=== PATIENT | female | born 1975 | race Caucasian/White ===

== ENCOUNTER → 2019-11-09 10:58 | Outpatient (BNVA) | payer MEDICARE, MEDICAID, SELFPAY | PROVIDERS: Family Provider Family Medicine; PCP Family Medicine; Visit Provider Family Medicine | DX: Z13.1 Encounter for screening for diabetes mellitus (principal); E88.81 Metabolic syndrome and other insulin resistance | CPT/HCPCS: 83036 ==

== ENCOUNTER → 2019-11-18 10:42 | Outpatient (BNVA) | payer MEDICARE, MEDICAID, SELFPAY | PROVIDERS: Family Provider Family Medicine; PCP Family Medicine; Visit Provider Emergency Medicine | DX: M25.521 Pain in right elbow (principal); M25.531 Pain in right wrist; M25.551 Pain in right hip | CPT/HCPCS: 73080; 73110; 73502 ==

== ENCOUNTER → 2019-11-22 10:58 | Outpatient (BNVA) | payer MEDICARE, MEDICAID, SELFPAY | PROVIDERS: Family Provider Family Medicine; PCP Family Medicine; Visit Provider Family Medicine | DX: Z86.711 Personal history of pulmonary embolism (principal); K21.9 Gastro-esophageal reflux disease without esophagitis; M79.7 Fibromyalgia; M79.641 Pain in right hand; M79.642 Pain in left hand; Z13.220 Encounter for screening for lipoid disorders; Z13.6 Encounter for screening for cardiovascular disorders | CPT/HCPCS: 80061; 85651; 86038; 86140; 86431 ==

== ENCOUNTER → 2019-12-07 09:03 | Outpatient (BNVA) | payer MEDICARE, MEDICAID, SELFPAY | PROVIDERS: Family Provider Family Medicine; PCP Family Medicine; Visit Provider Specialist | DX: M54.81 Occipital neuralgia (principal); R49.0 Dysphonia; G43.111 Migraine with aura, intractable, with status migrainosus; F44.5 Conversion disorder with seizures or convulsions | CPT/HCPCS: 64405; 64450; 99213; J1030; J3490 ==

== ENCOUNTER → 2019-12-23 09:38 | Outpatient (BNVA) | payer MEDICARE, MEDICAID, SELFPAY | PROVIDERS: Family Provider Family Medicine; PCP Family Medicine; Visit Provider Emergency Medicine | DX: N39.0 Urinary tract infection, site not specified (principal); R10.9 Unspecified abdominal pain; R11.0 Nausea; R31.9 Hematuria, unspecified; R10.32 Left lower quadrant pain; R31.29 Other microscopic hematuria | CPT/HCPCS: 81003; 87086 ==

== ENCOUNTER 2019-12-24 10:11 | Outpatient (CLI) | payer MEDICARE, MEDICAID, SELFPAY ==
--- NOTE | 2019-12-24 10:30 | CT_ITS ---
WS: [id number] CT ABDOMEN AND PELVIS NONCONTRAST HISTORY: abdominal pain, hematuria TECHNIQUE: Imaging performed through the abdomen and pelvis. Coronal and sagittal reformats are submi tted. All CT scans at [facility] use at least one of these dose optimization techniques: automated exposure control; mA and/or kV adjustment per patient size (includes targeted exams where d ose is matched to clinical indication); or iterative reconstruction. DLP: 1148.06 mGycm COMPARISON: 07/30/2017, 11/24/2015 Lower thorax: Well-circumscribed 2.8 cm mass in the RIGHT breast. Lung bases are clear. Liver: Hypodense nodule stable in the anterior LEFT lobe of the liver. Probably representing a cyst. No bile duct dilatation. Gallbladder: Unremarkable. Pancreas: Normal. Spleen: Normal. Adrenal glands: Normal. Right kidney: Normal size with no stones, masses or atrophy. Left kidney: Normal size with no stones, mass or atrophy. Abdominal aorta and IVC are unremarkable. Small mesenteric and RIGHT lower quadrant lymph nodes are less than a centimeter. Shoddy retroperitoneal lymph nodes are not enlarged. GI tract: Normal appendix. Mild constipation. No wall thickening. Abdominal wall: Intact. Pelvis: No free fluid or adenopathy. Uterus is enlarged and lobulated. Suspect fibroids. Osseous structures: No osteoblastic or osteolytic bone disease. CT/CT kidney stone [id number] IMPRESSION: 1. Subcentimeter mesenteric and RIGHT lower quadrant lymph nodes. Consider mes enteric adenitis. 2. Normal appendix. 3. Mild constipation. 4. No renal stone or obstruction. 5. RIGHT breast mass incompletely visualized measuring 2.8 cm. RIGHT breast cy st was described on a prior mammogram from 07/30/2017. If no interval mammogram has been performed follow-up mammogram is recommended.
== END 2019-12-24 10:12 | disposition home or self-care (01) ==
LOC: RADWPI 10:16
PROVIDERS: Family Provider Family Medicine; PCP Family Medicine; Visit Provider Emergency Medicine
DX: K59.00 Constipation, unspecified (principal); N63.10 Unspecified lump in the right breast, unspecified quadrant; R10.9 Unspecified abdominal pain; R31.9 Hematuria, unspecified
CPT/HCPCS: 74176

== ENCOUNTER → 2020-01-04 14:50 | Outpatient (BNVA) | payer MEDICARE, MEDICAID, SELFPAY | PROVIDERS: Family Provider Family Medicine; PCP Family Medicine; Visit Provider Obstetrics & Gynecology Female Pelvic Medicine and Reconstructive Surgery | DX: R10.32 Left lower quadrant pain (principal) | CPT/HCPCS: 76830; 83001; 85520 ==

== ENCOUNTER → 2020-02-09 08:57 | Outpatient (BNVA) | payer MEDICARE, MEDICAID, SELFPAY | PROVIDERS: Family Provider Family Medicine; PCP Family Medicine; Visit Provider Specialist | DX: M54.81 Occipital neuralgia (principal); G43.711 Chronic migraine without aura, intractable, with status migrainosus; R56.9 Unspecified convulsions | CPT/HCPCS: 64450; 99214 ==

== ENCOUNTER → 2020-02-28 07:48 | Outpatient (BNVA) | payer MEDICARE, MEDICAID, SELFPAY | PROVIDERS: Family Provider Family Medicine; PCP Family Medicine; Visit Provider Specialist | DX: F44.5 Conversion disorder with seizures or convulsions (principal) | CPT/HCPCS: 95816 ==

== ENCOUNTER → 2020-03-13 08:47 | Outpatient (BNVA) | payer MEDICARE, MEDICAID, SELFPAY | PROVIDERS: Family Provider Family Medicine; PCP Family Medicine; Visit Provider Specialist | DX: F44.5 Conversion disorder with seizures or convulsions (principal); M54.81 Occipital neuralgia; Z71.89 Other specified counseling | CPT/HCPCS: 64450; 99213 ==

== ENCOUNTER 2020-04-26 08:26 | Outpatient (CLI) | payer MEDICARE, MEDICAID, SELFPAY ==
--- NOTE | 2020-04-26 08:00 | MM_ITS ---
WS: [id number] Bilateral screening digital mammogram, 04/26/2020 Clinical Data: Screening Comparison: 07/30/2017, 01/08/2016. Findings: The breast parenchymal pattern shows heterogeneous density. In the right breast there is a large cyst which is slightly smaller than seen on the prior examination. There are other structures in the righ t breast which also probably represent cysts. The left breast is unchanged. No spiculated masses or c lustered calcifications are seen. There are no secondary signs of carcinoma. MM/[place] [id number] Impression: 1. Right breast cyst which is slightly smaller than on the prior exam. 2. Negative bilateral mammograms unchanged. 3. Recommend annual screening mammograms. BIRADS: 2-Benign FOLLOW UP: 1 Year Follow-up The CAD checker stocker was used.
== END 2020-04-26 08:27 | disposition home or self-care (01) ==
LOC: RADSHAW 08:30
PROVIDERS: PCP Family Medicine; Visit Provider Family Medicine
DX: Z12.31 Encounter for screening mammogram for malignant neoplasm of breast (principal); N60.01 Solitary cyst of right breast
CPT/HCPCS: 77067

== ENCOUNTER → 2020-05-22 07:53 | Outpatient (BNVA) | payer MEDICARE, MEDICAID, SELFPAY | PROVIDERS: Family Provider Family Medicine; PCP Family Medicine; Visit Provider Specialist | DX: M54.81 Occipital neuralgia (principal); R51 Headache; R11.0 Nausea | CPT/HCPCS: 20552; 99213; J1030; J3490 ==

== ENCOUNTER → 2020-06-07 08:52 | Outpatient (BNVA) | payer MEDICARE, MEDICAID, SELFPAY | PROVIDERS: Family Provider Family Medicine; PCP Family Medicine; Visit Provider Specialist | DX: G43.711 Chronic migraine without aura, intractable, with status migrainosus (principal) | CPT/HCPCS: 99212 ==

== ENCOUNTER → 2020-06-20 10:00 | Outpatient (BNVA) | payer MEDICARE, MEDICAID, SELFPAY | PROVIDERS: Family Provider Family Medicine; PCP Family Medicine; Visit Provider Specialist | DX: M54.81 Occipital neuralgia (principal); F44.5 Conversion disorder with seizures or convulsions | CPT/HCPCS: 64405; 99212 ==

== ENCOUNTER → 2020-07-17 09:23 | Outpatient (BNVA) | payer MEDICARE, MEDICAID, SELFPAY | PROVIDERS: Family Provider Family Medicine; PCP Family Medicine; Visit Provider Specialist | DX: F44.5 Conversion disorder with seizures or convulsions (principal); G43.711 Chronic migraine without aura, intractable, with status migrainosus; M54.81 Occipital neuralgia | CPT/HCPCS: 64450; 99212; J3490 ==

== ENCOUNTER → 2020-07-31 14:14 | Outpatient (BNVA) | payer MEDICARE, MEDICAID, SELFPAY | PROVIDERS: Family Provider Family Medicine; PCP Family Medicine; Referring Provider Nurse Practitioner Family; Visit Provider Nurse Practitioner Family | DX: M25.561 Pain in right knee (principal); M25.571 Pain in right ankle and joints of right foot | CPT/HCPCS: 73562; 73610 ==

== ENCOUNTER → 2020-08-23 12:56 | Outpatient (BNVA) | payer MEDICARE, MEDICAID, SELFPAY | PROVIDERS: Family Provider Family Medicine; PCP Family Medicine; Visit Provider Specialist | DX: G43.711 Chronic migraine without aura, intractable, with status migrainosus (principal); F44.5 Conversion disorder with seizures or convulsions | CPT/HCPCS: 99213 ==

== ENCOUNTER 2020-10-02 14:26 | Outpatient (CLI) | payer MEDICARE, MEDICAID, SELFPAY ==
--- NOTE | 2020-10-02 14:36 | MR_ITS ---
WS: [id number] MRI LEFT ANKLE NONCONTRAST TECHNIQUE: Sagittal proton density, sagittal STIR, axial proton density, axial T1, axial T2 fat sat, coronal proton density, coronal proton density fat sat, coronal T2 fat sat. CLINICAL INFORMATION: UNSPECIFIED INJURY OF ANKLE COMPARISON: None. FINDINGS: Normal anatomic alignment. Normal ankle mortise. Normal medial and lateral malleolus. Deltoid ligamen t appears normal. Mild soft tissue edema about the ankle. No acute avulsion fractures. Normal talar dome. No evidence of talar dome contusion. Navicular is normal in appearance. Normal cub oid. Tarsal bones appear normal. Metatarsal bases appear normal. Normal calcaneus. Normal talocalcane al articulation. No significant bone marrow contusion. Distal Achilles is normal in appearance. Carmina l peroneal tendons and peroneal tendon sheaths. Extensor and flexor compartment tendons appear intact . Small amount of tenosynovitis along the tibialis posterior and flexor digitorum longus. Diffuse edema involving the ATF which appears irregular and partially torn. Evidence of ligamentous i njury involving the posterior talofibular ligament. Edema involving the anterior and posterior tibiof ibular ligaments consistent with partial tear. MR/MR ankle LT wo con* [id number] IMPRESSION: 1. Normal ankle mortise. No acute fractures. 2. Evidence of ligamentous injury with partial tears involving the anterior an d posterior talofibular ligaments 3. Small amount of edema consistent with ligamentous injury along the anterior and posterior tibiofibular ligaments. 4. Small ankle effusion with soft tissue edema. 5. Small amount of tenosynovitis involving the tibialis posterior and flexor d igitorum longus.
== END 2020-10-02 14:27 | disposition home or self-care (01) ==
LOC: RADWPI 14:31
PROVIDERS: PCP Family Medicine; Visit Provider Orthopaedic Surgery
DX: S99.912A Unspecified injury of left ankle, initial encounter (principal); X58.XXXA Exposure to other specified factors, initial encounter; R60.0 Localized edema; M25.472 Effusion, left ankle; M65.872 Other synovitis and tenosynovitis, left ankle and foot
CPT/HCPCS: 73721

== ENCOUNTER → 2020-11-03 10:43 | Outpatient (BNVA) | payer MEDICARE, MEDICAID, SELFPAY | PROVIDERS: PCP Family Medicine; Referring Provider Obstetrics & Gynecology; Visit Provider Obstetrics & Gynecology | DX: N92.0 Excessive and frequent menstruation with regular cycle (principal); R10.2 Pelvic and perineal pain | CPT/HCPCS: 87635 ==

== ENCOUNTER → 2020-11-08 09:35 | Outpatient (BNVA) | payer MEDICARE, MEDICAID, SELFPAY | PROVIDERS: PCP Family Medicine; Visit Provider Emergency Medicine | DX: R07.89 Other chest pain (principal); Z86.711 Personal history of pulmonary embolism | CPT/HCPCS: 71046 ==

== ENCOUNTER 2020-11-08 11:48 | Inpatient (IN) | payer MEDICARE, MEDICAID, SELFPAY ==
[2020-11-08] VITALS (20 sets, daily range): BP systolic 89–137; BP diastolic 57–102; PULSE 56–91; RESP 15–22; TEMP 36.3–36.9; O2SAT 93–100; BMI 28.7
[2020-11-08] MEDS: fentaNYL 50 mcg/mL INJ 2mL 100 MCG IVP (12:35)
[2020-11-08] MEDS: midazolam 1 mg/mL INJ 2 mL 5 MG IVP (12:38)
[2020-11-08] MEDS: fentaNYL 50 mcg/mL INJ 2mL IVP (12:55)
[2020-11-08] MEDS: ketorolac 30 mg/mL INJ IVP (13:00)
--- NOTE | 2020-11-08 13:01 | XR_ITS ---
WS: [id number] Exam: XR chest 1V portable [id number] Date/Time of Exam: 11/08/2020 1:06 PM Reason For Exam: post chest tube insertion Compared to the most recent exam performed on this same day at 1011 hours. A small thoracostomy tube is been positioned in the upper left pleural cavity. The left lung is now f ully inflated. The right lung is clear. Normal cardiomediastinal structures and bony elements. XR/XR chest 1V portable [id number] IMPRESSION: 1. Resolved left upper lobe pneumothorax with small left chest tube in place as noted above. The exam is otherwise negative.
--- NOTE | 2020-11-08 13:01 | PC.NURSE ---
Addendum entered by Hailey Caro RN 11/08/20 14:45: thoravent placed to left chest by dr steven. suction hooked up to low continuous suction Original Note: pleuravac placed to left chest by dr steven. suction hooked up to low intermittent suction
[2020-11-08] MEDS: ondansetron 2 mg/ML SDV 2 mL 4 MG IVP ×2 (13:10→16:46)
--- NOTE | 2020-11-08 13:17 | ED_ITS ---
HPI - SOB/Dyspnea General: Chief Complaint: Shortness of Breath/Dyspnea Stated Complaint: COUGH, SOB, SEVERE CHEST/BACK PAIN Time Seen by Provider: 11/08/20 11:56 History of Present Illness: HPI Narrative: 45-year-old female presented to the emergency room with complaint of shortness of breath. She had been seen her primary care office earlier today and was found to have a left pneumothorax. Yesterday she had a nerve ablation procedure done at the pain clinic and after that had a little bit of shortness of breath and cough overnight got markedly worse. Procedure was done of the posterior approach. She also has a history of DVTs and PEs and is usually on Eliquis she is currently on subcu heparin as bridge therapy in anticipation of a hysterectomy she was to have tomorrow morning with Dr. Dan for mennomenorrhagia and a history of cervical cancer. She tells me she has never had a pneumothorax in the past. She has no history of COPD or asthma. MD elicited complaint: shortness of breath, cough, pain with inspiration and anxiety Pertinent past history: other Onset (ago): hour(s) Timing: constant Severity: severe Exacerbating factors: exertion, coughing and inspiration Relieving factors: oxygen, rest and upright position Associated symptoms: Reports chest pain and cough; Deny abdominal pain, chest congestion, diaphoresis, dizziness, extremity pain, fever(s), hemoptysis, lightheadedness, myalgias, nausea, orthopnea, palpitations, paresthesias, polydipsia, polyuria, rash, sense of impending doom, syncope or vomiting Treatment prior to arrival: none Review of Systems Const: Denies: fever(s) or diaphoresis ENMT: Denies: throat pain, ear or mastoid pain, nasal discharge or nasal congestion Card: Reports: chest pain; Denies: palpitations, lightheadedness, syncope or orthopnea Resp: Denies: hemoptysis or chest congestion GI: Denies: abdominal pain, nausea or vomiting : Denies: flank pain, difficulty voiding, dysuria, urinary frequency or urinary urgency Musc: Denies: extremity pain Skin/Breast: Denies: rash or pruritus Neuro: Denies: dizziness Endo: Denies: polyuria or polydipsia PFS ED PFSH: Medical History (Updated 11/08/20 @ 13:37 by Iker Nelson DO) Breast mass in female Cervical cancer Cervical disc disease Chronic post-traumatic stress disorder Fibromyalgia Generalized anxiety disorder GERD (gastroesophageal reflux disease) Hx pulmonary embolism Major depressive disorder, recurrent, moderate Menorrhagia Metabolic syndrome Migraine with aura, intractable, with status migrainosus MARIE (obstructive sleep apnea) Pneumothorax Pseudoseizure Surgical History H/O section H/O tubal ligation Family History Father Hypertension Diabetes Grandfather Diabetes Grandmother Diabetes Mother Heart disease Social History Smoking and tobacco status: never smoked Alcohol intake: current Alcohol intake frequency: holidays/special occasions only History of recent travel: No Current gender identity: Female Female Reproductive History: Date of last menstrual period: 08/30/20 Spontaneous abortions: No Physical Exam Const: COMMON NORMALS: no acute distress GENERAL APPEARANCE: cooperative and comfortable ORIENTATION/CONSCIOUSNESS: Yes awake, Yes oriented to person, Yes oriented to place and Yes oriented to time HENMT: COMMON NORMALS: normocephalic, atraumatic and hearing grossly normal bilaterally HEAD & SCALP: normocephalic and atraumatic Neck/C-Spine: COMMON NORMALS: no JVD Resp: COMMON NORMALS: normal respiratory effort, No retractions, No use of accessory muscles and clear to auscultation bilaterally AUSCULTATION: clear to auscultation bilaterally OTHER: Absent breath sounds on the left apical area anteriorly on initial exam. Improved after placement of thoracic vent Cardio: COMMON NORMALS: no JVD, regular rate, regular rhythm and No murmurs present (Cardio) RATE: regular rate RHYTHM: regular rhythm GI: COMMON NORMALS: Soft to palpation and No hepatosplenomegaly present AUSCULTATION: Yes normoactive bowel sounds PALPATION: Yes Soft to palpation, No Tenderness to palpation present (GI), No Guarding due to palpation present (GI) and Yes No hepatosplenomegaly present Extremity: COMMON NORMALS: normal to inspection, capillary refill normal, no clubbing, cyanosis or edema, no calf tenderness and no pedal edema Neuro: SENSORIUM/ORIENTATION: Yes oriented to person, Yes oriented to place and Yes oriented to time Skin: COMMON NORMALS: no rashes or lesions noted GENERAL SKIN EXAM: no rashes or lesions noted Course Vital Signs: Vital signs: Vital Signs Temperature 98.4 F 11/08/20 11:56 Pulse Rate 68 11/08/20 14:00 Respiratory Rate 20 H 11/08/20 14:00 Blood Pressure 104/69 11/08/20 14:00 Pulse Oximetry 100 11/08/20 14:00 MDM - SOB/Dyspnea MDM Narrative: Medical decision making narrative: 100% left apical pneumothorax on initially chest x-ray done in the primary care office. Thoracic vent placed by Dr. Ponce in the ER. Post film shows good reinflation. She will be placed on observation overnight Dr. Duke to be the attending Dr. Ponce to be the consulting. Discharge Plan Discharge Patient Disposition: Placed in Observation Admit Provider: Mary Duke Clinical Impression: Pneumothorax, Hx of pulmonary embolus Coding Level of Care Code ED [employer]isher [employer] for Chg Fwd Exam Comprehensive
[2020-11-08] MEDS: morphine 4 mg/mL SDV 1 mL IVP ×2 (13:27→13:58)
--- NOTE | 2020-11-08 13:42 | PC.NURSE ---
1330 lab called to obtain labs from pt, as she was stuck by three nurses in an attempt to collect.
[2020-11-08] MEDS: promethazine 25 mg/mL SDV 1 mL IM (14:13)
[2020-11-08 14:17] LABS: Basophils % 0.5 %; Eosinophils # 0.1 10^3/uL (0.0-0.8); Eosinophils % 0.8 %; Hematocrit 37.1 % (37.0-47.0); Hemoglobin 11.8 g/dL (11.5-15.3); Lymphocytes # 1.5 10^3/uL (0.8-4.8); Lymphocytes % 24.5 %; Mean Corpuscular HGB Conc 31.8 g/dL (30.0-36.0); Mean Corpuscular Hemoglobin 26.9 pg (28.0-34.0); Mean Corpuscular Volume 84.7 fL (81-99); Mean Platelet Volume 9.4 fL (7.4-10.4); Monocytes # 0.4 10^3/uL (0.2-0.9); Monocytes % 6.2 %; Neutrophils # 4.05 10^3/uL (1.8-7.7); Neutrophils % 67.7 %; Nucleated Red Blood Cells % 0 %; Platelet Count 244 10^3/cmm (130-400); Red Blood Count 4.38 10^6/uL (4.1-5.3); Red Cell Distribution Width 13.4 % (12.1-15.1)
--- NOTE | 2020-11-08 14:23 | PC.NURSE ---
report called to giovany baker
[2020-11-08 14:36] LABS: INR 1.03 (0.8-1.2)
[2020-11-08 14:37] LABS: Partial Thromboplastin Time 29.2 SECONDS (23.9-36.7)
[2020-11-08 14:43] LABS: Alanine Aminotransferase 23 U/L (0-33); Albumin Level 3.9 g/dL (3.5-5.2); Alkaline Phosphatase 76 IU/L (35-105); Aspartate Amino Transferase 22 U/L (0-32); Blood Urea Nitrogen 10 mg/dL (6-20); Calcium 8.7 mg/dL (8.5-10.5); Carbon Dioxide 26 mmol/L (22-29); Chloride 106 mmol/L (98-107); Globulin 2.7 g/dL (1.3-4.6); Glomerular Filtration Rate 108.6 mL/min (90-130); Glucose 96 mg/dL (65-115); Osmolality Calculated 287 mOsm/kg (285-295); Sodium 139 mmol/L (136-145); Total Bilirubin 0.2 mg/dL (0.15-1.2); Total Protein 6.6 g/dL (6.6-8.7)
--- NOTE | 2020-11-08 15:36 | P.HP_ITS ---
Providers/Chief Complaint Admitting Physician: Dr. Ponce/cardiothoracic surgery Primary Care Provider: Minal Sanders MD Chief Complaint: COUGH, SOB, SEVERE CHEST/BACK PAIN History of Present Illness Joanie Black is a 45 year old female was consulted on by Dr. Nelson in the emergency department due to a 20% left pneumothorax that was initially felt to be spontaneous. Upon further questioning, it was determined that the patient received a trigger point injection yesterday in the left subscapular region and [facility]. She noted some increasing pain later that day which proceeded anteriorly as well. Because of increasing discomfort and some mild dyspnea, she was seen in the clinic today were chest x-ray revealed a 20% pneumothorax. She was then transferred to the emergency department at [facility] in [place]. I was consulted by Dr. Browning. I have recommended and concurred with Dr. Nelson's recommendation for a left thoracic vent for this pneumothorax. Has been on subcutaneous heparin for planned elective hysterectomy tomorrow. She has a prior history for DVT and had been on Eliquis which is been held in preparation for this elective surgery. I personally reviewed the chest x-ray and conferred with my colleague Dr. Nelson. Review of Systems Const: Denies: fever(s), chills, change in appetite, change in weight, fatigue or night sweats Eyes: Denies: change in vision or blurry vision ENMT: Denies: odynophagia or hoarseness Card: Reports: chest pain (Sided posterior radiating to anterior) Resp: Reports: dyspnea; Denies: hemoptysis GI: Denies: abdominal pain, nausea, vomiting, dysphagia, heartburn or change in bowel habits : Denies: dysuria, urinary frequency, urinary urgency or urinary hesitancy Musc: Denies: extremity pain or extremity swelling Skin/Breast: Denies: rash Neuro: Denies: headache(s), numbness in extremities, weakness in extremities or sensory changes Psych: Reports: anxiety; Denies: depression or change in appetite Endo: Denies: polyuria, polydipsia or cold intolerance David/Lymph: Denies: easy bruising, easy bleeding, petechiae or enlarged lymph nodes Medications/Allergies Home Medications Medication Instructions Recorded Confirmed Last Taken Type apixaban 2.5 mg tablet See Rx Instructions .ROUTE 0911/08/20 10/31/20 08:47 Rx .COMPLEX #60 tab omeprazole 20 mg capsule,delayed See Rx Instructions .ROUTE 06/28/20 11/08/20 11/07/20 Rx release .COMPLEX #30 capsule erenumab-aooe 140 mg/mL See Rx Instructions .ROUTE 08/23/20 11/08/20 Unknown Rx subcutaneous auto-injector .COMPLEX #1 ml alprazolam 0.5 mg tablet 0.5 mg PO TID PRN #90 tab 09/10/20 11/08/20 11/08/20 Rx alprazolam 1 mg tablet,extended 1 mg PO DAILY #30 tab 09/10/20 11/08/20 11/08/20 Rx release 24 hr magnesium oxide 400 mg PO DAILY 10/23/20 11/08/20 11/08/20 History potassium 99 mg tablet 1 mg PO DAILY tab 10/23/20 11/08/20 11/07/20 History promethazine 25 mg tablet 25 mg PO TID PRN tab 10/23/20 11/08/20 Unknown History memantine 10 mg tablet 10 mg PO BID #60 tab 10/30/20 11/08/20 11/08/20 Rx heparin (porcine) 5,000 unit/mL (1 5,000 unit SUBCUT Q12H #50 ml 11/01/20 11/08/20 11/08/20 Rx mL) injection cartridge metoprolol succinate 12.5 mg PO DAILY 11/08/20 11/08/20 11/08/20 History suvorexant [Belsomra] 20 mg PO BEDTIME 11/08/20 11/08/20 11/07/20 History Allergies Allergy/AdvReac Type Severity Reaction Status Date / Time No Known Allergies Allergy Verified 11/08/20 09:05 PFSH Acute PFSH: Medical History Breast mass in female Cervical cancer Cervical disc disease Chronic post-traumatic stress disorder Fibromyalgia Generalized anxiety disorder GERD (gastroesophageal reflux disease) Hx pulmonary embolism Major depressive disorder, recurrent, moderate Menorrhagia Metabolic syndrome Migraine with aura, intractable, with status migrainosus MARIE (obstructive sleep apnea) Pneumothorax Pseudoseizure Surgical History H/O section H/O tubal ligation Family History Father Hypertension Diabetes Grandfather Diabetes Grandmother Diabetes Mother Heart disease Social History Smoking and tobacco status: never smoked Alcohol intake: current Alcohol intake frequency: holidays/special occasions only History of recent travel: No Current gender identity: Female Female Reproductive History: Date of last menstrual period: 08/30/20 Spontaneous abortions: No Vitals/I&O/Wt Last Vital Signs Temp 98.1 F 11/08/20 14:49 Pulse 57 L 11/08/20 15:21 Resp 18 11/08/20 14:49 BP 101/69 11/08/20 14:49 Pulse Ox 100 11/08/20 14:49 Weight last 48 hrs Weight 200 lb Physical Exam Const: COMMON NORMALS: patient oriented x3 and alert ORIENTATION/CONSCIOUSNESS: Yes oriented to person, Yes oriented to place and Yes oriented to time HENMT: COMMON NORMALS: normocephalic HEAD & SCALP: normocephalic; no cranial bruits Neck/C-Spine: COMMON NORMALS: full ROM, supple, no JVD and No carotid bruits GENERAL: Yes trachea midline CERVICAL SPINE: Yes cervical ROM normal Chest: COMMONS NORMALS: normal inspection of the chest and normal palpation of entire chest wall Resp: COMMON NORMALS: normal respiratory effort; negative for clear to auscultation bilaterally EFFORT & INSPECTION: Yes able to speak in complete sentences, Yes symmetric chest movement and Yes tachypneic (Mild) AUSCULTATION: not clear to auscultation bilaterally (Decreased breath sounds laterally and posteriorly on the left) Cardio: COMMON NORMALS: no JVD, regular rate, regular rhythm, S1 normal heart sound present, S2 normal heart sound present, No gallops present (Cardio), No murmurs present (Cardio), No rub (Cardio) and Peripheral pulses 2+ throughout JUGULAR VENOUS DISTENTION: no JVD RATE: regular rate RHYTHM: regular rhythm HEART SOUNDS: S1 normal heart sound present and S2 normal heart sound present PERIPHERAL PULSES: radial pulses present positive bilateral 2+ Neuro: COMMON NORMALS: patient oriented x3, no focal motor deficits and no sensory deficits noted SENSORIUM/ORIENTATION: Yes alert, Yes oriented to person, Yes oriented to place and Yes oriented to time GAIT: Yes Normal gait present Data : 11/08/20 14:11 11/08/20 14:11 A&P Assessment and plan (1) Pneumothorax: Percent, symptomatic, left pneumothorax which is probably iatrogenic following trigger point injection yesterday. Plan: I recommended a left thoracic vent placement for this apical pneumothorax. Rationale was carefully discussed with Ms. Black. I have also spoken with her . All questions answered. They are agreeable to proceed. Details and risks of the procedure were carefully and frankly discussed. Risks reviewed include the possibility of , stroke, heart attack, major bleeding, infection, pneumonia, failure to resolve the pneumothorax, subsequent need for prolonged vent or chest tube placement, organ failure, failure to benefit, prolonged hospital stay, pain after the procedure, need for further procedures, inability to complete the procedure, and possible need for long-term followup. All questions were answered. Appropriate consents have been provided for review and signature. Status: Acute Attestations Medical Necessity Statement*: Left pneumothorax Time Spent in Patient Care: 16 - 35 minutes Coding Level of Care Code New Pt Acute Geophysical Support Specialist for Chg Fwd Patient Type New History Expanded Problem Focused Exam Detailed Medical Decision Making Moderate Complexity Diagnoses Pneumothorax J93.9 Time Spent (min) 35
--- NOTE | 2020-11-08 15:44 | P.OP_ITS ---
Operative Report Date of procedure: November 08, 2020 Pre-op Diagnosis: Left pneumothorax Post-op diagnosis: same Procedure Done: Left 13 Nigerian thoracic vent placement Pathology: none sent Surgeon: Carlos Enrique Ponce Anesthesia: Local Complications: None: Post procedure chest x-ray reveals resolution of left pneumothorax Condition: stable Disposition: floor Brief History: 45-year-old female with probable iatrogenic left pneumothorax following trigger point injection yesterday. [facility]lying [facility] in [place] with a 20% left pneumothorax on chest x-ray this morning. I recommended thoracic vent placement for management of this pneumothorax. Rationale and details of the procedure were carefully discussed as well as the risk. Proper consents have been reviewed and signed. Procedure: After careful positioning, Ms. Black received a total of [3] mg of Versed and 100 mcg of fentanyl slow IV with continuous monitoring of heart rate, blood pressure, EKG, and O2 saturation. Her left anterior chest wall was then sterilely prepped and draped. 1% lidocaine was infiltrated in the mid clavicular line over the second intercostal space. A #11 scalpel blade was used to incise the skin. Next, a trocar 13 Nigerian thoracic vent was inserted through the incision and then by direct firm and controlled pressure into the [left/right] pleural space where the vent was advanced over the trocar as it was removed. There was a prompt return of air under pressure. The vent was secured to the skin with adhesive tabs and also with 2-0 silk suture. The vent was then connected to Pleur-evac suction where further air was evacuated. The had the expected pleuritic reaction with subsequent discomfort which subsided over a few minutes. Vital signs remained stable throughout the procedure. Dressings were secured. Breath sounds are now much improved. Chest x-ray revealed appropriate vent placement and resolution of the pneumothorax. I did awake overnight counselor with her at the completion of the procedure. She will be placed as inpatient on the spears with residential continued suction with planned chest x-ray in the a.m. Prior to my departure, air leak had resolved as noted in the Pleur-evac.
[2020-11-08] MEDS: D5-NS 0.45% + KCL 20 mEq 20 MEQ/1,000 ML BAG 100 MEQ IV (16:28)
[2020-11-08] MEDS: morphine 4 mg/mL SDV 1 mL 2 MG IVP ×2 (16:33→21:06)
--- NOTE | 2020-11-08 17:05 | ECG_ITS ---
[facility] Test Date: 2020-11-08 Pat Name: Joanie Black Department: Room: 270 Gender: Female Sign Letterer: : 1975 Requested By: Mary Duke Order Number: [id number] James MD: Yvon Velazquez M.D. Measurements Intervals [place] Rate: 60 P: 59 TN: 157 QRS: 54 QRSD: 97 T: 62 QT: 397 QTc: 397 Interpretive Statements SINUS RHYTHM Compared to ECG 07/11/2019 01:02:16 Sinus arrhythmia no longer present Myocardial infarct finding no longer present Electronically Signed On 11-09-2020 18:07:56 FIRER TUNNEL KILN by Yvon Velazquez M.D. [email or web address]
--- NOTE | 2020-11-08 17:45 | P.HP_ITS ---
Providers/Chief Complaint Admitting Physician: Mary Duke MD Primary Care Provider: Minal Sanders MD Chief Complaint: COUGH, SOB, SEVERE CHEST/BACK PAIN History of Present Illness Joanie Black is a 45 year old female with cervical cancer, PTSD, fibromyalgia, CIRA, GERD, h/o PEs in the past for which she is on longstanding Eliquis, changed to heparin s/c recebtly in anticipation of upcoming hystererctomy on 10/30/20. She presented to ER today with acute dyspnea that started few hrs after receiving a trigger point injection as outpatient. Found to have a left pneumothorax 20%, evaluted by Dr. Borrego in the ER , then underwent placement of thoravent which was then connected to low intermittent suction. CXR post procedure shows resolution of pneumothorax. She c/o post op pain at insertion site at this time. Denies any chest pain, dyspnea or palpitations. [place] admission requested by ER given underlying comorbidities. Review of Systems General: Reports: 10 or more systems reviewed and unremarkable except in HPI and below Const: Denies: fever(s), chills or body aches Eyes: Denies: change in vision, blurry vision or photophobia ENMT: Reports: hoarseness; Denies: throat pain, enlarged tonsils, odynophagia or nasal congestion Card: Denies: chest pain, palpitations, irregular heart rhythm, edema, swelling of feet/ankles, lightheadedness, pre-syncope, dyspnea on exertion or orthopnea Resp: Denies: dyspnea, productive cough, non-productive cough, wheezing, str idor, pain on inspiration, change in phlegm color, hemoptysis or chest congestion GI: Denies: abdominal pain, nausea, vomiting, hematemesis, coffee ground emesis, dysphagia, heartburn, diarrhea, constipation, GI cramping, change in stool character, hematochezia or melena : Denies: flank pain, difficulty voiding, dysuria, urinary frequency, urinary urgency, urinary hesitancy or hematuria Musc: Denies: neck pain, back pain, extremity pain, joint swelling, joint warmth or deformity Neuro: Denies: headache(s), numbness in extremities, weakness in extremities, sensory changes, difficulty walking, frequent falls, dizziness, vertigo, behavioral changes, Slurred speech present or seizure-like activity Psych: Denies: anxiety, depression, suicidal ideation or homicidal ideation Endo: Denies: polyuria, polydipsia, tired all the time, cold intolerance or hot flashes David/Lymph: Denies: easy bruising or easy bleeding Medications/Allergies Home Medications Medication Instructions Recorded Confirmed Last Taken Type apixaban 2.5 mg tablet See Rx Instructions .ROUTE 06/28/20 11/08/20 10/31/20 08:47 Rx .COMPLEX #60 tab omeprazole 20 mg capsule,delayed See Rx Instructions .ROUTE 06/28/20 11/08/20 11/07/20 Rx release .COMPLEX #30 capsule erenumab-aooe 140 mg/mL See Rx Instructions .ROUTE 08/23/20 11/08/20 Unknown Rx subcutaneous auto-injector .COMPLEX #1 ml alprazolam 0.5 mg tablet 0.5 mg PO TID PRN #90 tab 09/10/20 11/08/20 11/08/20 Rx alprazolam 1 mg tablet,extended 1 mg PO DAILY #30 tab 09/10/20 11/08/20 11/08/20 Rx release 24 hr magnesium oxide 400 mg PO DAILY 10/23/20 11/08/20 11/08/20 History potassium 99 mg tablet 1 mg PO DAILY tab 10/23/20 11/08/20 11/07/20 History promethazine 25 mg tablet 25 mg PO TID PRN tab 10/23/20 11/08/20 Unknown History memantine 10 mg tablet 10 mg PO BID #60 tab 10/30/20 11/08/20 11/08/20 Rx heparin (porcine) 5,000 unit/mL (1 5,000 unit SUBCUT Q12H #50 ml 11/01/20 11/08/20 11/08/20 Rx mL) injection cartridge metoprolol succinate 12.5 mg PO DAILY 11/08/20 11/08/20 11/08/20 History suvorexant [Belsomra] 20 mg PO BEDTIME 11/08/20 11/08/20 11/07/20 History Allergies Allergy/AdvReac Type Severity Reaction Status Date / Time No Known Allergies Allergy Verified 11/08/20 09:05 PFSH Acute PFSH: Medical History Breast mass in female Cervical cancer Cervical disc disease Chronic post-traumatic stress disorder Fibromyalgia Generalized anxiety disorder GERD (gastroesophageal reflux disease) Hx pulmonary embolism Major depressive disorder, recurrent, moderate Menorrhagia Metabolic syndrome Migraine with aura, intractable, with status migrainosus MARIE (obstructive sleep apnea) Pneumothorax Pseudoseizure Surgical History H/O section H/O tubal ligation Family History Father Hypertension Diabetes Grandfather Diabetes Grandmother Diabetes Mother Heart disease Social History Smoking and tobacco status: never smoked Alcohol intake: current Alcohol intake frequency: holidays/special occasions only History of recent travel: No Current gender identity: Female Female Reproductive History: Date of last menstrual period: 08/30/20 Spontaneous abortions: No Vitals/I&O/Wt Last Vital Signs Temp 97.4 F L 11/08/20 15:51 Pulse 59 L 11/08/20 15:51 Resp 16 11/08/20 16:33 BP 91/57 11/08/20 15:51 Pulse Ox 100 11/08/20 15:51 Weight last 48 hrs Weight 90.718 kg Physical Exam Const: COMMON NORMALS: no acute distress, average body habitus, patient oriented x3, no limitations, healthy appearing, alert and well nourished HENMT: COMMON NORMALS: normocephalic and atraumatic HEAD & SCALP: normocep halic and atraumatic Eye: COMMON NORMALS: Equal, round and reactive pupils present, EOMs intact bilaterally, conjunctivae normal and no scleral icterus CONJUNCTIVA: Yes conjunctivae normal PUPIL: Yes Equal, round and reactive pupils present Neck/C-Spine: COMMON NORMALS: no JVD Resp: COMMON NORMALS: normal respiratory effort, No retractions, No use of accessory muscles, clear to auscultation bilaterally and percussion normal AUSCULTATION: clear to auscultation bilaterally PERCUSSION: percussion normal Cardio: COMMON NORMALS: no JVD, regular rate, regular rhythm, S1 normal heart sound present, S2 normal heart sound present, No gallops present (Cardio), No clicks present (Cardio), No murmurs present (Cardio), No rub (Cardio) and Peripheral pulses 2+ throughout RATE: regular rate RHYTHM: regular rhythm HEART SOUNDS: S1 normal heart sound present and S2 normal heart sound present PERIPHERAL PULSES: Peripheral pulses 2+ throughout GI: COMMON NORMALS: Normal to inspection, nondistended, normoactive bowel sounds present, Soft to palpation, non-tender, No hepatosplenomegaly present, no masses and no bruits PALPATION: Yes Soft to palpation and Yes No hepatosplenomegaly present Extremity: COMMON NORMALS: normal to inspection, full ROM, capillary refill normal, no joint enlargement, no clubbing, cyanosis or edema, no calf tenderness and no pedal edema Neuro: COMMON NORMALS: patient oriented x3, CN's II-XII intact bilaterally, moves all extremities, no focal motor deficits, no sensory deficits noted, deep tendon reflexes 2+ bilaterally and gait normal SENSORIUM/ORIENTATION: Yes alert Psych: COMMON NORMALS: mental status grossly normal, Normal thought process present, cooperative, normal affect, speech normal, activity/motor behavior normal, denies hallucinations, denies homicidal ideation and denies suicidal ideation SPEECH: Yes normal speech THOUGHT PROCESS: Normal thought process present Skin: COMMON NORMALS: no rashes or lesions noted, no wounds, turgor normal, no jaundice, no petechiae and no mottling GENERAL SKIN EXAM: no rashes or lesions noted and turgor normal Data : 11/08/20 14:11 11/08/20 14:11 A&P Assessment and plan (1) Hx of pulmonary embolus: PAtient on Eliquis chronically, switched to heparin 5000 s/c q12h one week ago for planned surgery Resume heparin at above dosing tonight Status: Acute (2) Pneumothorax: s/p placement of thoravent Management per CT surgery Status: Acute (3) Menorrhagia: scheduled for hysterectomy as outpatient tomorrow, deferred for now, outpatient follow up Status: Acute (4) Cervical cancer: Status: Acute Qualifiers: Malignant neoplasm of cervix location: unspecified location Qualified C ode(s): C53.9 - Malignant neoplasm of cervix uteri, unspecified (5) Chronic migraine without aura, intractable, with status migrainosus: Status: Acute Attestations Medical Necessity Statement*: s/p thoravent placement today, CXR in am to ensure resolution of pneumothorax Coding Level of Care Code Acute Race Engine Builder for Chg Fwd Diagnoses Hx of pulmonary embolus Z86.711 Pneumothorax J93.9 Menorrhagia N92.0 Cervical cancer C53.9 Malignant neoplasm of cervix location: unspecified location Chronic migraine without aura, intractable, with status migrainosus G43.711
[2020-11-08] MEDS: heparin 5,000 unit/mL INJ 1 mL 5000 UNIT SUBCUT (19:21)
[2020-11-08] MEDS: LORazepam 2 mg/mL INJ 1 mL 0.5 MG IVP (19:23)
--- NOTE | 2020-11-08 20:00 | XR_ITS ---
WS: [id number] Exam: XR chest 1V portable [id number] Date/Time of Exam: 11/08/2020 7:32 PM Reason For Exam: f/up pneumothorax Comparison 11/08/2020 at 0101 hours. The left lung remains fully inflated. Small left chest tube is in place in the upper left pleural cav ity unchanged in location. There is atelectasis in the left lower lobe. The right lung is clear and f ully expanded. Normal cardiomediastinal structures and bony elements. XR/XR chest 1V portable [id number] IMPRESSION: 1. The left lung remains fully inflated. Left thoracostomy tube is unchanged in location. 2. Left lower lobe atelectasis.
[2020-11-09] VITALS (13 sets, daily range): BP systolic 91–123; BP diastolic 59–71; PULSE 54–85; RESP 14–18; TEMP 36.4–37.3; O2SAT 96–99
[2020-11-09] MEDS: D5-NS 0.45% + KCL 20 mEq 20 MEQ/1,000 ML BAG 100 MEQ IV ×2 (01:19→11:07)
[2020-11-09] MEDS: morphine 4 mg/mL SDV 1 mL 2 MG IVP ×4 (01:26→17:24)
[2020-11-09 05:31] LABS: Basophils % 0.6 %; Eosinophils # 0.1 10^3/uL (0.0-0.8); Eosinophils % 2.3 %; Hematocrit 35.6 % (37.0-47.0); Hemoglobin 11.3 g/dL (11.5-15.3); Mean Corpuscular HGB Conc 31.7 g/dL (30.0-36.0); Mean Corpuscular Hemoglobin 27.3 pg (28.0-34.0); Monocytes # 0.4 10^3/uL (0.2-0.9); Monocytes % 8.7 %; Neutrophils # 2.22 10^3/uL (1.8-7.7); Neutrophils % 46.2 %; Nucleated Red Blood Cells % 0 %; Platelet Count 225 10^3/cmm (130-400); Red Blood Count 4.14 10^6/uL (4.1-5.3); Red Cell Distribution Width 13.6 % (12.1-15.1); White Blood Count 4.8 10^3/uL (4.0-10.0)
--- NOTE | 2020-11-09 06:00 | XR_ITS ---
WS: [id number] Exam: XR chest 1V portable [id number] Date/Time of Exam: 11/09/2020 6:18 AM Reason For Exam: Postop day #1 status post left thoracic vent/on suction Comparison 11/08/2020. The left lung remains fully expanded. Left chest tube is unchanged in position. Right lung remains cl ear. Normal cardiomediastinal structures and bony elements. XR/XR chest 1V portable [id number] IMPRESSION: 1. The left lung remains fully inflated. Left chest tube unchanged in location. The chest is otherwise negative.
--- NOTE | 2020-11-09 06:00 | PM.PN ---
Subjective Subjective: Interval history: First day postop left thoracic vent. Uneventful night. This morning's chest x-ray reveals continued expansion of the lung. No air leak is noted. Pleur-evac is been on suction. Vitals/I&O/Wt Last Vital Signs Temp 98.1 F 11/09/20 04:00 Pulse 62 11/09/20 04:00 Resp 14 11/09/20 04:00 BP 102/66 11/09/20 05:56 Pulse Ox 98 11/09/20 04:00 11/08/20 11/08/20 11/09/20 14:59 22:59 06:59 Intake Total 480 / 480 885 / 1365 Output Total 400 / 400 1000 / 1400 Balance 80 / 80 -115 / -35 Weight last 48 hrs Weight 200 lb Physical Exam Chest: COMMONS NORMALS: normal inspection of the chest (Surgical dressing site is clean and dry.) Resp: COMMON NORMALS: normal respiratory effort and clear to auscultation bilaterally AUSCULTATION: clear to auscultation bilaterally Cardio: COMMON NORMALS: regular rate, regular rhythm, S1 normal heart sound present and No murmurs present (Cardio) RATE: regular rate RHYTHM: regular rhythm HEART SOUNDS: S1 normal heart sound present Data : 11/09/20 05:10 11/08/20 14:11 A&P Assessment and plan (1) Pneumothorax: First day status post left thoracic vent with left lung remaining inflated. No air leak. Plan: We will disconnect vent from Pleur-evac. Chest x-ray at 12 noon. If low remains inflated will consider removing thoracic vent with possible discharge later this evening or tomorrow. Status: Acute Attestations Medical Necessity Statement*: Iatrogenic left pneumothorax status post thoracic vent Time Spent in Patient Care: less than 15 minutes Coding Level of Care Code Acute Supervisor Filtration for El[employer]io Chung Diagnoses Pneumothorax J93.9
[2020-11-09 06:17] LABS: Anion Gap 12.2 (5-19); Blood Urea Nitrogen 9 mg/dL (6-20); Carbon Dioxide 24 mmol/L (22-29); Chloride 105 mmol/L (98-107); Glomerular Filtration Rate 108.6 mL/min (90-130); Glucose 107 mg/dL (65-115); Osmolality Calculated 283 mOsm/kg (285-295); Potassium 4.2 mmol/L (3.5-5.1); Sodium 137 mmol/L (136-145)
[2020-11-09] MEDS: ondansetron 2 mg/ML SDV 2 mL 4 MG IVP ×2 (06:19→12:23)
[2020-11-09] MEDS: pantoprazole DR 40 mg Tablet PO (08:38)
[2020-11-09] MEDS: heparin 5,000 unit/mL INJ 1 mL 5000 UNIT SUBCUT (08:38)
--- NOTE | 2020-11-09 12:00 | XR_ITS ---
WS: [id number] Exam: XR chest 1V portable [id number] Date/Time of Exam: 11/09/2020 12:03 PM Reason For Exam: Left thoracic vent Now off suction Comparison with the most recent exam performed on the same day at 0628 hours. The left lung remains fully expanded. Left chest tube in place unchanged. Atelectatic change seen in the left lower lobe. The right lung is clear and fully expanded. Normal cardiomediastinal structures and bony elements. XR/XR chest 1V portable [id number] IMPRESSION: 1. Left lung remains fully inflated. Left chest tube is unchanged in position.
--- NOTE | 2020-11-09 12:47 | PM.MISC ---
Miscellaneous Note Note: Chest x-ray with the thoracic vent off of the Pleur-evac reveals the left lung is remain expanded. Discomfort is under better control. I have elected to remove the thoracic vent and place an occlusive dressing. We will obtain a chest x-ray at 3 PM.
--- NOTE | 2020-11-09 14:45 | PC.NURSE ---
Patient had pseudoseizure, this nurse walked into the room to check on patient. Patient was staring and would not respond to name or touch. Patients head was slightly jerking. After about 2 minutes patient was alert and orientated with no neurological effects. Patient was able to transfer to [facility] with standby assist. Patient continued to complain of headache. Dr. Duke was notified.
[2020-11-09] MEDS: LORazepam 2 mg/mL INJ 1 mL 0.5 MG IVP (14:59)
[2020-11-09] MEDS: ibuprofen 200 mg Tablet 400 MG PO (15:00)
--- NOTE | 2020-11-09 15:00 | XR_ITS ---
WS: [id number] Exam: XR chest 1V portable [id number] Date/Time of Exam: 11/09/2020 12:50 PM Reason For Exam: thoracic vent removed Comparison with the latest exam performed on the same day at 1201 hours. Thoracostomy tube has been removed from the left pleural cavity. The left lung remains clear and full y inflated. The right lung is also clear. Normal cardiomediastinal structures. XR/XR chest 1V portable [id number] IMPRESSION: 1. Left lung remains fully inflated following chest tube removal. The chest is otherwise unremarkable.
--- NOTE | 2020-11-09 15:35 | PC.NURSE ---
Patient continues to complain of a headache, was upset because she only got Motrin for it. This RN asked patient what she normally took or did for her headaches. Patient states she takes Phenergan, I offered patient the Phenergan suppository she has ordered, she declined. Then patient states she uses an ice pack at home. I went and got patient an ice pack for her head at this time.
--- NOTE | 2020-11-09 16:30 | P.DS_ITS ---
Discharge Providers Date of Admission: 11/08/20 08:58 Date of Discharge: November 09, 2020 Attending Provider at Admission: Carlos Enrique Ponce MD Attending Provider at Discharge: Carlos Enrique Ponce MD Primary Care Provider: Minal Sanders MD Diagnoses at Discharge Discharge Diagnosis (1) Pneumothorax: Status: Acute Reason for Visit Reason for Visit: COUGH, SOB, SEVERE CHEST/BACK PAIN Hospital Course Hospital Course Ms. Black is a 45-year-old female admitted after presentation to the emergency department with shortness of breath, left-sided chest discomfort, and a chest x- ray obtained at her primary care clinic in [place] revealing a 20% left pneumothorax. She had received a trigger point injection the day prior and began noticing discomfort several hours after this procedure. A 13 English thoracic vent was placed in the emergency department under light sedation and local anesthesia. Her pneumothorax readily resolved and air leak dissipated within approximately 2 to 3 hours. She was taken off of suction this morning with a stable chest x-ray and subsequently the thoracic vent was removed around 12:30 PM. 3:00 chest x-ray reveals the lungs remain fully inflated without evidence of pneumothorax recurrence. He does have a headache this afternoon states she think she would do better at home and does wish to proceed with plans for discharge. Vital signs are otherwise stable. She will be discharged home to follow-up in my clinic next week. She is to limit her activities until her follow-up. At discharge she is in stable condition. Physical Exam Const: COMMON NORMALS: patient oriented x3 and alert Chest: COMMONS NORMALS: normal inspection of the chest (Occlusive dressing is in place at the previous left thoracic vent site) Resp: COMMON NORMALS: normal respiratory effort, No retractions, No use of accessory muscles, clear to auscultation bilaterally and percussion normal AUSCULTATION: clear to auscultation bilaterally PERCUSSION: percussion normal Cardio: COMMON NORMALS: regular rate, regular rhythm and S1 normal heart sound present RATE: regular rate RHYTHM: regular rhythm HEART SOUNDS: S1 normal heart sound present Extremity: COMMON NORMALS: no clubbing, cyanosis or edema Neuro: COMMON NORMALS: patient oriented x3, no focal motor deficits and no sensory deficits noted SENSORIUM/ORIENTATION: Yes alert Discharge Data Data Completed and Pending: Completed Studies During Hospitalization Category Date Time Status XR chest 1V luis antonio ble [id number] Routine Exams 11/08/20 20:00 Completed XR chest 1V l[place] an[place]io ble [id number] Routine Exams 11/09/20 06:00 Completed XR chest 1V [place] ble [id number] Routine Exams 11/09/20 12:00 Completed XR chest 1V luis an[place]io ble [id number] Routine Exams 11/09/20 15:00 Completed XR chest 1V luis antonio ble [id number] Stat Exams 11/08/20 13:01 Completed Labs from last 24 hours 11/09/20 11/09/20 05:10 05:10 WBC 4.8 RBC 4.14 Hgb 11.3 L Hct 35.6 L MCV 86.0 MCH 27.3 L MCHC 31.7 RDW 13.6 Plt Count 225 MPV 9.0 Neut % (Auto) 46.2 Lymph % (Auto) 42.0 Swisher % (Auto) 8.7 Eos % (Auto) 2.3 Baso % (Auto) 0.6 Neut # (Auto) 2.22 Lymph # (Auto) 2.0 Swisher # (Auto) 0.4 Eos # (Auto) 0.1 Baso # (Auto) 0.0 Nucleated RBC % (a uto) 0 Nucleated RBCs # 0.0 Sodium 137 Potassium 4.2 Chloride 105 Carbon Dioxide 24 Anion Gap 12.2 BUN 9 Creatinine 0.6 GFR Calculation 108.6 Glucose 107 Calculated Osmolal ity 283 L Calcium 8.0 L Vitals: Last Vital Signs Temp 99.1 F 11/09/20 15:24 Pulse 73 11/09/20 15:24 Resp 16 11/09/20 15:24 BP 102/63 11/09/20 15:24 Pulse Ox 96 11/09/20 15:24 Discharge Plan Discharge Patient Disposition: Home Condition: Stable Prescriptions: New hydrocodone-acetaminophen 5-325 mg tablet 1 tab PO Q6H PRN (Reason: pain) Qty: 16 RF: 0 Continued promethazine 25 mg tablet 25 mg PO TID PRN (Reason: nausea and vomiting) RF: 0 potassium 99 mg tablet 1 mg PO DAILY RF: 0 magnesium oxide 400 mg magnesium tablet 400 mg PO DAILY RF: 0 omeprazole 20 mg capsule,delayed release(DR/EC) See Rx Instructions .ROUTE .COMPLEX Qty: 30 RF: 5 Eliquis 2.5 mg tablet See Rx Instructions .ROUTE .COMPLEX Qty: 60 RF: 5 alprazolam [Xanax] 0.5 mg tablet 0.5 mg PO TID PRN (Reason: anxiety) Qty: 90 RF: 2 alprazolam [Xanax XR] 1 mg tablet extended release 24 hr 1 mg PO DAILY Qty: 30 RF: 2 heparin (porcine) 5,000 unit/mL (1 mL) cartridge 5,000 unit SUBCUT Q12H Qty: 50 RF: 0 erenumab-aooe [Aimovig Autoinjector] 140 mg/mL auto-injector See Rx Instructions .ROUTE .COMPLEX Qty: 1 RF: 3 memantine [Namenda] 10 mg tablet 10 mg PO BID Qty: 60 RF: 3 metoprolol succinate 25 mg tablet extended release 24 hr 12.5 mg PO DAILY RF: 0 Belsomra 20 mg tablet 20 mg PO BEDTIME RF: 0 Discharge Orders: Discharge Order (Routine); Ordered 11/09/20 Ordered By: Carlos Enrique Ponce Referrals: Carlos Enrique Ponce MD [Physician] - 1 week (With chest x-ray) Minal Sanders MD [Primary Care Provider] - Discharge Diet: Usual diet Discharge Activity: Limit activity as instructed Activity Restrictions/Additional Instructions: No heavy lifting, pulling, or straining x2 weeks No smoking May remove bandage on November 13February begin showers on November 13 Discharge Attestations Time Spent in Discharge Care*: less than 30 min Specific Discharge Activities: educating patient, discussing with pcp/other providers, documenting/other paperwork and evaluating patient/reviewing data Status at Discharge: Cognitive status at discharge: cognitively intact , Behavioral status at discharge: cooperative , Functional status at discharge: independent ambulation Overall status at discharge: patient is progressing back to baseline Quality Metrics Clinical Quality Measures During this hospital stay, did patient experience: None Coding Level of Care Code Acute Ict Business Development Manager for [employer] Fwd Diagnoses Pneumothorax J93.9
--- NOTE | 2020-11-09 18:33 | PC.NURSE ---
Patient given discharge instructions, all questions answered. Patient discharged at this time in the care of her spouse, in stable condition.
== END 2020-11-09 18:37 | disposition home or self-care (01) | DRG 167 ==
LOC: ER 13:37 → MEDSURG 14:18
PROVIDERS: Admitting Provider Thoracic Surgery (Cardiothoracic Vascular Surgery); Emergency Provider Family Medicine; PCP Family Medicine; Visit Provider Thoracic Surgery (Cardiothoracic Vascular Surgery)
DX: J95.811 Postprocedural pneumothorax (principal); F33.1 Major depressive disorder, recurrent, moderate; Y84.8 Other medical procedures as the cause of abnormal reaction of the patient, or of later complication, without mention of misadventure at the time of the procedure; Y79.1 Therapeutic (nonsurgical) and rehabilitative orthopedic devices associated with adverse incidents; C53.9 Malignant neoplasm of cervix uteri, unspecified; M50.30 Other cervical disc degeneration, unspecified cervical region; F43.12 Post-traumatic stress disorder, chronic; M79.7 Fibromyalgia; F41.1 Generalized anxiety disorder; Z86.711 Personal history of pulmonary embolism; G47.33 Obstructive sleep apnea (adult) (pediatric); Z79.01 Long term (current) use of anticoagulants
CPT/HCPCS: 12345; 36415; 71045; 71046; 80048; 80053; 85025; 85610; 85730; 93005; 96372; 99282; 99291; G0378; J1644; J1885; J2060; J2250; J2270; J2405; J2550; J3010

== ENCOUNTER 2020-11-13 20:36 | Emergency (ER) | payer MEDICARE, MEDICAID, SELFPAY ==
--- NOTE | 2020-11-13 20:46 | XRR_ITS ---
PROCEDURE INFORMATION: Exam: XR Chest, 1 View Exam date and time: 11/13/2020 8:48 PM Age: 45 years old Clinical indication: Cough and shortness of breath; Left-sided chest pain; Prior surgery; Surgery date: 3-7 days post-operative; Surgery type: Thora vent; Patient HX: History of pneumothorax 11/08/20; Additional info: SOB TECHNIQUE: Imaging protocol: XR of the chest Views: 1 view. COMPARISON: CR XR chest 1V portable [id number] 11/09/2020 2:56 PM FINDINGS: Lungs: Minimal residual left basilar atelectasis. Pleural spaces: No pneumothorax. Heart/Mediastinum: No cardiomegaly. Bones/joints: No acute fracture. XR/XR chest 1V portable [id number] IMPRESSION: No pneumothorax. Minimal residual left basilar atelectasis.
[2020-11-13 21:54] VITALS: BP 113/73; PULSE 77; RESP 14; TEMP 36.7; O2SAT 98; BMI 28.7
--- NOTE | 2020-11-13 22:03 | ECG_ITS ---
[facility] Test Date: 2020-11-13 Pat Name: Joanie Black Department: Room: Gender: Female Network Engineer Administrator: SOPHIE : 1975 Requested By: Shoaib Contreras Order Number: [id number] Reading MD: AUGUSTO ENAMORADO Measurements Intervals [place] Rate: 69 P: 66 DC: 160 QRS: 58 QRSD: 85 T: 53 QT: 363 QTc: 390 Interpretive Statements SINUS RHYTHM POSSIBLE LEFT ATRIAL ENLARGEMENT [-0.1mV P WAVE IN V1/V2] WARNING: DATA QUALITY MAY AFFECT INTERPRETATION Compared to ECG 11/08/2020 11:59:18 No significant changes Electronically Signed On 11-14-2020 18:02:46 PICK UP OPERATOR by AUGUSTO ENAMORADO [id number]
--- NOTE | 2020-11-13 22:13 | ED_ITS ---
HPI - Chest Pain General: Chief Complaint: Chest Pain Stated Complaint: SOB FOLLOWING PNEUMOTHORAX ON 11.08 Time Seen by Provider: 11/13/20 22:02 Source: patient Mode of arrival: ambulatory Limitations: no limitations History of Present Illness: HPI narrative: 45-year-old female who had a trigger point injection on the on her shoulder had an iatrogenic pneumothorax. She had a pneumothorax treated and had a Thora vent placed for 2 days and had a removed on . States over the last day or 2 she has been having a sharp pain on that same side which is the left side especially with inspiration. States the pain is a 6 out of 10. She denies any fevers. She denies any cough. Associated symptoms: Deny abdominal pain, dyspnea, fever(s), nausea or vomiting Review of Systems Const: Denies: fever(s), chills, body aches or change in appetite Eyes: Denies: blurry vision or eye discomfort ENMT: Denies: throat pain or dental pain Card: Reports: chest pain Resp: Denies: dyspnea GI: Denies: abdominal pain, nausea, vomiting or diarrhea : Denies: dysuria Musc: Denies: neck pain or back pain Skin/Breast: Denies: rash Neuro: Denies: headache(s) Psych: Denies: depression David/Lymph: Denies: easy bruising All/Imm: Denies: urticaria PFSH ED PFSH: Medical History Breast mass in female Cervical cancer Cervical disc disease Chronic post-traumatic stress disorder Fibromyalgia Generalized anxiety disorder GERD (gastroesophageal reflux disease) Hx pulmonary embolism Major depressive disorder, recurrent, moderate Menorrhagia Metabolic syndrome Migraine with aura, intractable, with status migrainosus MARIE (obstructive sleep apnea) Pneumothorax Pseudoseizure Surgical History H/O section H/O tubal ligation Family History Father Hypertension Diabetes Grandfather Diabetes Grandmother Diabetes Mother Heart disease Social History Smoking and tobacco status: never smoked Alcohol intake: current Alcohol intake frequency: holidays/special occasions only History of recent travel: No Current gender identity: Female Female Reproductive History: Date of last menstrual period: 08/30/20 Spontaneous abortions: No Physical Exam Const: COMMON NORMALS: no acute distress, patient oriented x3 and healthy appearing HENMT: COMMON NORMALS: normocephalic and atraumatic HEAD & SCALP: normocephalic and atraumatic Eye: COMMON NORMALS: Equal, round and reactive pupils present and EOMs intact bilaterally PUPIL: Yes Equal, round and reactive pupils present Neck/C-Spine: COMMON NORMALS: full ROM and supple Chest: COMMONS NORMALS: normal inspection of the chest and normal palpation of entire chest wall Resp: COMMON NORMALS: normal respiratory effort, No retractions, No use of accessory muscles and clear to auscultation bilaterally AUSCULTATION: clear to auscultation bilaterally Cardio: COMMON NORMALS: regular rate, regular rhythm and No murmurs present (Cardio) RATE: regular rate RHYTHM: regular rhythm GI: COMMON NORMALS: Normal to inspection, nondistended, normoactive bowel sounds present, Soft to palpation, non-tender and no masses PALPATION: Yes Soft to palpation Extremity: COMMON NORMALS: normal to inspection and full ROM Neuro: COMMON NORMALS: patient oriented x3, moves all extremities and no focal motor deficits Psych: COMMON NORMALS: mental status grossly normal, Normal thought process present and cooperative THOUGHT PROCESS: Normal thought process present Skin: COMMON NORMALS: no rashes or lesions noted and no wounds GENERAL SKIN EXAM: no rashes or lesions noted Course Vital Signs: Vital signs: Vital Signs Temperature 98.1 F 11/13/20 21:54 Pulse Rate 67 11/14/20 01:13 Respiratory Rate 15 11/14/20 01:13 Blood Pressure 101/71 11/14/20 01:13 Pulse Oximetry 96 11/14/20 01:13 MDM - Chest Pain MDM Narrative: Medical decision making narrative: Patient presents here with chest pain is likely from her recent pneumothorax and the reexpansion. X-ray here shows no pneumothorax at this time and is properly reexpanded. Her D-dimer and troponin are both normal. Her pain is much improved here and I feel she is stable for discharge. She is to follow-up PCP and return if worsening. Lab Data: Labs: Lab Results 11/13/20 11/13/20 11/13/20 Range/Units 23:00 23:00 23:00 WBC 7.3 (4.0-10.0) 10^3/ uL RBC 4.94 (4.1-5.3) 10^6/u L Hgb 13.4 (11.5-15.3) g/dL Hct 41.7 (37.0-47.0) % MCV 84.4 (81-99) fL MCH 27.1 L (28.0-34.0) pg MCHC 32.1 (30.0-36.0) g/dL RDW 13.6 (12.1-15.1) % Plt Count 317 (130-400) 10^3/c mm MPV 9.8 (7.4-10.4) fL Neut % (Auto) 57.2 % Lymph % (Auto) 34.1 % [place] % (Auto) 5.9 % Eos % (Auto) 1.9 % Baso % (Auto) 0.8 % Neut # (Auto) 4.20 (1.8-7.7) 10^3/u L Lymph # (Auto) 2.5 (0.8-4.8) 10^3/u L [place] # (Auto) 0.4 (0.2-0.9) 10^3/u L Eos # (Auto) 0.1 (0.0-0.8) 10^3/u L Baso # (Auto) 0.1 (0.0-0.1) 10^3/u L Nucleated RBC % (a uto) 0 % Nucleated RBCs # 0.0 /100WBC D-Dimer 0.54 (0-0.59) ug/mIFE U Sodium 137 (136-145) mmol/L Potassium 4.2 (3.5-5.1) mmol/L Chloride 102 (98-107) mmol/L Carbon Dioxide 23 (22-29) mmol/L Anion Gap 16.2 (5-19) BUN 14 (6-20) mg/dL Creatinine 0.5 (0.5-0.9) mg/dL GFR Calculation Not Reportable Glucose 95 (65-115) mg/dL Calculated Osmolal ity Not Reportable Calcium 9.7 (8.5-10.5) mg/dL Total Bilirubin 0.2 (0.15-1.2) mg/dL AST 21 (0-32) U/L ALT 27 (0-33) U/L Alkaline Phosphata se 74 (35-105) IU/L Troponin T Baselin e (0-10) ng/L Total Protein 7.9 (6.6-8.7) g/dL Albumin 4.6 (3.5-5.2) g/dL Globulin 3.3 (1.3-4.6) g/dL 11/13/20 Range/Units 23:00 WBC (4.0-10.0) 10^3/ uL RBC (4.1-5.3) 10^6/u L Hgb (11.5-15.3) g/dL Hct (37.0-47.0) % MCV (81-99) fL MCH (28.0-34.0) pg MCHC (30.0-36.0) g/dL RDW (12.1-15.1) % Plt Count (130-400) 10^3/c mm MPV (7.4-10.4) fL Neut % (Auto) % Lymph % (Auto) % [place] % (Auto) % Eos % (Auto) % Baso % (Auto) % Neut # (Auto) (1.8-7.7) 10^3/u L Lymph # (Auto) (0.8-4.8) 10^3/u L [place] # (Auto) (0.2-0.9) 10^3/u L Eos # (Auto) (0.0-0.8) 10^3/u L Baso # (Auto) (0.0-0.1) 10^3/u L Nucleated RBC % (a uto) % Nucleated RBCs # /100WBC D-Dimer (0-0.59) ug/mIFE U Sodium (136-145) mmol/L Potassium (3.5-5.1) mmol/L Chloride (98-107) mmol/L Carbon Dioxide (22-29) mmol/L Anion Gap (5-19) BUN (6-20) mg/dL Creatinine (0.5-0.9) mg/dL GFR Calculation Glucose (65-115) mg/dL Calculated Osmolal ity Calcium (8.5-10.5) mg/dL Total Bilirubin (0.15-1.2) mg/dL AST (0-32) U/L ALT (0-33) U/L Alkaline Phosphata se (35-105) IU/L Troponin T Baselin e 6 (0-10) ng/L Total Protein (6.6-8.7) g/dL Albumin (3.5-5.2) g/dL Globulin (1.3-4.6) g/dL Imaging Data^: CXR: Attestation: I personally reviewed and interpreted this imaging study as follows: My impression: no acute abnormality EKG Data^: EKG 1: Attestation: I personally reviewed and interpreted this EKG as follows: EKG interpretation date: 11/14/20 EKG interpretation time: 21:52 Interpretation: nsr hr [address] or t wave abnormalities qrs 85 qtc 382 Discharge Plan Discharge Patient Disposition: Home Clinical Impression: Chest pain Qualifiers: Chest pain type: unspecified Qualified Code(s): R07.9 - Chest pain, unspecified Condition: Stable Prescriptions: [place] 5-325 mg tablet 1 tab PO Q6H PRN (Reason: pain) Qty: 14 RF: 0 Naprosyn 500 mg tablet 500 mg PO BID PRN (Reason: pain) Qty: 20 RF: 0 No Action promethazine 25 mg tablet 25 mg PO TID PRN (Reason: nausea and vomiting) RF: 0 potassium 99 mg tablet 1 mg PO DAILY RF: 0 magnesium oxide 400 mg magnesium tablet 400 mg PO DAILY RF: 0 omeprazole 20 mg capsule,delayed release(DR/EC) See Rx Instructions .ROUTE .COMPLEX Qty: 30 RF: 5 Eliquis 2.5 mg tablet See Rx Instructions .ROUTE .COMPLEX Qty: 60 RF: 5 alprazolam [Xanax] 0.5 mg tablet 0.5 mg PO TID PRN (Reason: anxiety) Qty: 90 RF: 2 alprazolam [Xanax XR] 1 mg tablet extended release 24 hr 1 mg PO DAILY Qty: 30 RF: 2 heparin (porcine) 5,000 unit/mL (1 mL) cartridge 5,000 unit SUBCUT Q12H Qty: 50 RF: 0 erenumab-aooe [Aimovig Autoinjector] 140 mg/mL auto-injector See Rx Instructions .ROUTE .COMPLEX Qty: 1 RF: 3 memantine [Namenda] 10 mg tablet 10 mg PO BID Qty: 60 RF: 3 metoprolol succinate 25 mg tablet extended release 24 hr 12.5 mg PO DAILY RF: 0 Belsomra 20 mg tablet 20 mg PO BEDTIME RF: 0 hydrocodone-acetaminophen 5-325 mg tablet 1 tab PO Q6H PRN (Reason: pain) Qty: 16 RF: 0 Discharge Orders: Discharge ED (Routine); Ordered 11/14/20 Ordered By: Shoaib Contreras Referrals: Minal Sanders MD [Primary Care Provider] - 1-3 days Discharge Diet: Advance as tolerated Discharge Activity: Resume usual activity Patient Instructions: Chest Pain (ED) Coding Level of Care Code ED Coding Analyst for Elpidio Fwd Exam Comprehensive
[2020-11-13 22:54] VITALS: BP 118/87; PULSE 80; RESP 20; O2SAT 99
[2020-11-13 23:15] LABS: Basophils # 0.1 10^3/uL (0.0-0.1); Basophils % 0.8 %; Eosinophils # 0.1 10^3/uL (0.0-0.8); Eosinophils % 1.9 %; Hematocrit 41.7 % (37.0-47.0); Hemoglobin 13.4 g/dL (11.5-15.3); Lymphocytes # 2.5 10^3/uL (0.8-4.8); Lymphocytes % 34.1 %; Mean Corpuscular HGB Conc 32.1 g/dL (30.0-36.0); Mean Corpuscular Hemoglobin 27.1 pg (28.0-34.0); Mean Corpuscular Volume 84.4 fL (81-99); Mean Platelet Volume 9.8 fL (7.4-10.4); Monocytes # 0.4 10^3/uL (0.2-0.9); Monocytes % 5.9 %; Neutrophils % 57.2 %; Nucleated Red Blood Cells % 0 %; Platelet Count 317 10^3/cmm (130-400); Red Blood Count 4.94 10^6/uL (4.1-5.3); Red Cell Distribution Width 13.6 % (12.1-15.1); White Blood Count 7.3 10^3/uL (4.0-10.0)
[2020-11-13 23:29] LABS: D Dimer 0.54 ug/mIFEU (0-0.59)
[2020-11-13 23:33] LABS: Albumin Level 4.6 g/dL (3.5-5.2); Blood Urea Nitrogen 14 mg/dL (6-20); Calcium 9.7 mg/dL (8.5-10.5); Carbon Dioxide 23 mmol/L (22-29); Chloride 102 mmol/L (98-107); Globulin 3.3 g/dL (1.3-4.6); Glucose 95 mg/dL (65-115); Sodium 137 mmol/L (136-145); Total Bilirubin 0.2 mg/dL (0.15-1.2); Total Protein 7.9 g/dL (6.6-8.7)
[2020-11-13 23:35] LABS: Troponin(5th) Baseline 6 ng/L (0-10)
[2020-11-13 23:50] VITALS: RESP 19; O2SAT 99
[2020-11-13] MEDS: morphine 4 mg/mL SDV 1 mL IVP (23:50)
[2020-11-13] MEDS: ondansetron 2 mg/ML SDV 2 mL 4 MG IVP (23:50)
[2020-11-14] VITALS: BP 112/71; PULSE 70; RESP 16; O2SAT 99
[2020-11-14 00:24] LABS: Alanine Aminotransferase 27 U/L (0-33); Alkaline Phosphatase 74 IU/L (35-105); Anion Gap 16.2 (5-19); Aspartate Amino Transferase 21 U/L (0-32); Potassium 4.2 mmol/L (3.5-5.1)
[2020-11-14 01:13] VITALS: BP 101/71; PULSE 67; RESP 15; O2SAT 96
== END 2020-11-14 01:19 | disposition home or self-care (01) ==
PROVIDERS: Emergency Provider Emergency Medicine; PCP Family Medicine
DX: R07.9 Chest pain, unspecified (principal); Z79.01 Long term (current) use of anticoagulants; Z85.41 Personal history of malignant neoplasm of cervix uteri; Z86.711 Personal history of pulmonary embolism
CPT/HCPCS: 12345; 71045; 80053; 84484; 85025; 85378; 93005; 96374; 96375; 99282; 99283; J2270; J2405

== ENCOUNTER → 2020-12-24 10:09 | Outpatient (BNVA) | payer MEDICARE, MEDICAID, SELFPAY | PROVIDERS: PCP Family Medicine; Referring Provider Obstetrics & Gynecology; Visit Provider Nurse Practitioner Family | DX: R10.2 Pelvic and perineal pain (principal); Z86.711 Personal history of pulmonary embolism | CPT/HCPCS: 87635 ==

== ENCOUNTER 2020-12-28 09:14 | Inpatient (IN) | payer MEDICARE, MEDICAID, SELFPAY ==
[2020-12-20 10:07] VITALS: BMI 28.7
[2020-12-20 10:42] LABS: Add Urine Microscopic? NO
[2020-12-20 10:47] LABS: Basophils # 0.1 10^3/uL (0.0-0.1); Basophils % 0.7 %; Eosinophils # 0.1 10^3/uL (0.0-0.8); Eosinophils % 1.4 %; Hematocrit 40.6 % (37.0-47.0); Hemoglobin 13.2 g/dL (11.5-15.3); Lymphocytes # 2.5 10^3/uL (0.8-4.8); Lymphocytes % 35.1 %; Mean Corpuscular HGB Conc 32.5 g/dL (30.0-36.0); Mean Corpuscular Hemoglobin 27.3 pg (28.0-34.0); Mean Corpuscular Volume 84.1 fL (81-99); Mean Platelet Volume 9.4 fL (7.4-10.4); Monocytes # 0.6 10^3/uL (0.2-0.9); Monocytes % 7.9 %; Neutrophils # 3.91 10^3/uL (1.8-7.7); Neutrophils % 54.6 %; Nucleated Red Blood Cells % 0 %; Platelet Count 296 10^3/cmm (130-400); Red Blood Count 4.83 10^6/uL (4.1-5.3); Red Cell Distribution Width 13.1 % (12.1-15.1); White Blood Count 7.2 10^3/uL (4.0-10.0)
[2020-12-20 10:58] LABS: Urine Appearance Clear (CLEAR); Urine Color Yellow (Yellow)
[2020-12-20 10:59] LABS: Bilirubin Urine Neg (Negative); Blood Urine Neg (Negative); Glucose Urine UA Norm (Normal); Ketones Urine Negative (Negative); Leukocyte Esterase Urine Negative (Negative); Nitrate Urine Negative (Negative); Protein Urine Neg (Negative); Sulfosalicylic Acid Urine Negative (Negative); Urobilinogen Urine Norm (Negative); pH Urine 8 (5-7)
--- NOTE | 2020-12-20 15:25 | P.ANESASSM_ITS ---
Pre-Anesthetic Assessment Pre-Anesthetic Assessment: Height/Weight: Height 1.78 m Weight 90.718 kg Preop Diagnosis: menorrhagia, pelvic pain, history of cervical cancer, history of PE Proposed Procedure: Operation Date: 12/28/20 12:25 Proposed Procedures p Total Abdominal Hysterectomy 52683 r10.2 z86.711 z85.41 n92.0(Not Applicable) - Gladis Dan MD s bilateral Salpingo Oophorectomy (Open)(Bilateral) - Gladis Dan MD Was Beta Lnecho taken within 24 hours: Yes Social: Social History: No alcohol and No tobacco Exam: Pre-Anes Outpt Exam: alert, oriented x 3, clear to auscultation bilaterally and regular rate & rhythm Airway: Submandibular: WNL Cervical ROM: WNL MP: 2 Dentition: Full CV/HEM: CV/HEM: DVT (PE) GI: GI: GERD Musc/skel: Musc/skel: OA/DJD Neuropsych: Neuropsych: Anxiety, Depression and SCHMIDT Comments: Pseudoseizure Anesthetic Plan: ASA status: 3 Anesthesia: General Risk of > 500 ml blood loss (7ml/kg in children): No PFSH Anesthesia PFSH: Medical History Breast mass in female Cervical cancer Cervical disc disease Chronic post-traumatic stress disorder Fibromyalgia Generalized anxiety disorder GERD (gastroesophageal reflux disease) Hx pulmonary embolism Major depressive disorder, recurrent, moderate Menorrhagia Metabolic syndrome Migraine with aura, intractable, with status migrainosus MARIE (obstructive sleep apnea) Pneumothorax Pseudoseizure Surgical History H/O section H/O tubal ligation Family History Father Hypertension Diabetes Grandfather Diabetes Grandmother Diabetes Mother Heart disease Social History (Updated 12/20/20 @ 08:28 by DANIEL Ramos) Smoking and tobacco status: never smoked Alcohol intake: current Alcohol intake frequency: holidays/special occasions only Substance/Drug Use: never History of recent travel: No Current gender identity: Female Female Reproductive History: Date of last menstrual period: 10/31/20 Spontaneous abortions: No Data Anesthesia CBC & Chem 7: 12/20/20 10:37 Other Labs: Laboratory Results - last 48 hr 12/20/20 12/20/20 10:20 10:37 WBC 7.2 RBC 4.83 Hgb 13.2 Hct 40.6 MCV 84.1 MCH 27.3 L MCHC 32.5 RDW 13.1 Plt Count 296 MPV 9.4 Neut % (Auto) 54.6 Lymph % (Auto) 35.1 [place] % (Auto) 7.9 Eos % (Auto) 1.4 Baso % (Auto) 0.7 Neut # (Auto) 3.91 Lymph # (Auto) 2.5 [place] # (Auto) 0.6 Eos # (Auto) 0.1 Baso # (Auto) 0.1 Nucleated RBC % (auto) 0 Nucleated RBCs # 0.0 Urine Color Yellow Urine Appearance Clear Urine pH 8 H Ur Specific [place] 1.010 Urine Protein Neg Urine Glucose (UA) Norm Urine Ketones Negative Urine Blood Neg Urine Nitrate Negative Urine Bilirubin Neg Prot Sulfosalicylic Acd Negative Urine Urobilinogen Norm Ur Leukocyte Esterase Negative Cardiac Studies: No Data to Display
[2020-12-28] VITALS (23 sets, daily range): BP systolic 88–139; BP diastolic 40–77; PULSE 55–79; RESP 12–20; TEMP 36.2–36.9; O2SAT 91–100
[2020-12-28] MEDS: gabapentin 300 mg Capsule PO (09:36)
[2020-12-28] MEDS: CELEcoxib 200 mg Capsule 400 MG PO (09:36)
[2020-12-28] MEDS: acetaminophen 1,000 MG/100 ML PIGGYBACK 400 MG IV (09:59)
[2020-12-28] MEDS: ketorolac 30 mg/mL INJ IVP ×3 (09:59→21:41)
[2020-12-28] MEDS: sodium chloride 0.9% 1,000 ML 30 ML IV (10:11)
[2020-12-28 10:20] LABS: HCG, Serum Qual Negative (Negative)
--- NOTE | 2020-12-28 10:26 | W.PM.OPSUD ---
Surgery/Procedure H&P Update DATE OF PROCEDURE: December 28, 2020 DATE H&P PERFORMED: 12/01/20 H&P UPDATE INFORMATION: I have reviewed H&P completed within last 30 days, I have examined patient prior to procedure and No changes to prior documentation PREOP DIAGNOSIS: menorrhagia, pelvic pain, history of cervical cancer PLANNED PROCEDURE: Operation Date: 12/28/20 10:50 Proposed Procedures p Total Abdominal Hysterectomy 51725 r10.2 z86.711 z85.41 n92.0(Not Applicable) - Gladis Dan MD s bilateral Salpingo Oophorectomy (Open)(Bilateral) - Gladis Dan MD
--- NOTE | 2020-12-28 10:51 | P.ANESUD_ITS ---
Pre-Anesthetic Update Pre-Anesthetic Assessment: Date of Surgery/Procedure: 12/28/20 Preop Erika gnosis: menorrhagia, pelvic pain, history of cervical cancer Proposed Procedure: Operation Date: 12/28/20 10:50 Proposed Procedures p Total Abdominal Hysterectomy 73098 r10.2 z86.711 z85.41 n92.0(Not Applicable) - Gladis Dan MD s bilateral Salpingo Oophorectomy (Open)(Bilateral) - Gladis Dan MD Any changes to Pre-Anesthetic Assessment?: No Last Intake: Intake Last Liquid Date 12/28/20 Last Liquid Time 07:15 Last Solid Date 12/27/20 Last Solid Time 21:45 Labs Last 48hrs: Laboratory Results - last 48 hr 12/28/20 09:44 HCG, Qual Negative Vitals: Temperature 98 F 12/28/20 09:22 Temperature Source Temporal Artery S can 12/28/20 09:22 Pulse Rate 67 12/28/20 09:22 Respiratory Rate 16 12/28/20 09:22 Blood Pressure 139/63 12/28/20 09:22 Blood Pressure Dariana n 88 12/28/20 09:22 Pulse Oximetry 100 12/28/20 09:22 Oxygen Delivery Me thod 12/28/20 09:22 Exam: Pre-Anes Outpt Exam: alert, oriented x 3, clear to auscultation bilaterally and regular rate & rhythm Cardiac Studies: No Data to Display
[2020-12-28] MEDS: midazolam 1 mg/mL INJ 2 mL 2 MG IVP (10:58)
[2020-12-28] MEDS: ceFOXitin 2,000 MG in sodium chloride 0.9% (plus) 50 ML 100 MG IV (13:03)
--- NOTE | 2020-12-28 15:05 | PM.OP ---
Operative Report Date of procedure: December 28, 2020 Pre-op Diagnosis: menorrhagia, pelvic pain, history of cervical cancer Post-op diagnosis: same Post-op Findings: enlarged uterus with severe adhesions to the pelvic sidewall and abdominal wall Procedure Done: total abdominal hysterectomy with bilateral salpingoophorectomy Specimens removed/disposition: uterus, bilateral fallopian tubes and ovaries Surgeon: Gladis Dan Anesthesia: General Estimated blood loss (mL): 400 IV fluids (mL): 1,800 Urine output (mL): 50 Complications: none Condition: stable Disposition: PACU Procedure: Operating room where general anesthesia was administered and found to be adequate. He was prepped and draped in the normal sterile fashion in the dorsal supine position. A Gusman catheter was placed and the vagina prepped with Betadine. A Pfannenstiel skin incision was made over the previous incision and carried down to the underlying layer of fascia. The fascia was nicked in the midline and extended laterally with the [place] scissors. The fascia was then tented up and the rectus muscles dissected off sharply. The peritoneum was already open just from taking the muscles down this peritoneal incision was extended superiorly and inferiorly with good visualization of the bladder. The O'Ernesto-O'Whitley retractor was placed. The bowel was packed away in the bladder blade was inserted. Placed in steep Trendelenburg. The omentum was adhesed to the pelvis and the anterior abdominal wall this was taken down there was a large adhesion of the bladder to the right of the uterus and to the pelvic sidewall this was also taken down there was a large adhesion to the left side of the uterus as well this was also taken down sharply with the Metzenbaum scissors. After the uterus was normalized the round ligaments were clamped cut and suture-ligated. A window was made in the broad ligament and a Laura clamp was clamped across the infundibulopelvic ligament bilaterally. It was clamped inferior to the fallopian tube and ovary bilaterally. Using the Metzenbaum scissors the tube and ovary were removed the pedicle was suture-ligated and there was excellent hemostasis. The bladder flap was created with Metzenbaum scissors. The bladder was extremely adhesed to the uterus and cervix and had to be taken down gently with the Metzenbaum scissors. The uterus was normalized at this point and I used straight clamps to clamp cut and suture ligate the cardinal ligaments and the uterine arteries. The uterosacral ligaments were clamped cut and suture-ligated and the specimen was removed. The vaginal cuff was reapproximated with 0 Vicryl in a running locked fashion there was good hemostasis. There was some bleeding from the anterior peritoneum the anterior and posterior peritoneum were brought together and there was excellent hemostasis after this. The pelvis was copiously irrigated and no bleeding was visualized. Because this area was so raw over the bladder Santosh was placed. All instruments were removed. Peritoneum was closed with 2-0 Monocryl in a running fashion. The fascia was closed with 0 Vicryl with 2 separate sutures overlapping in the midline. The skin was closed with absorbable jazzy. The patient tolerated the procedure well. Sponge lap and needle counts were correct x3. She was taken to the recovery room in stable condition.
[2020-12-28] MEDS: fentaNYL 50 mcg/mL INJ 2mL IVP (15:23)
[2020-12-28] MEDS: ondansetron 2 mg/ML SDV 2 mL 4 MG IVP ×4 (15:25→22:56)
[2020-12-28] MEDS: HYDROmorphone 1 mg/mL INJ 1 mL 0.5 MG IVP (15:31)
[2020-12-28] MEDS: dextrose 5%-lactated ringers 1,000 ML 125 ML IV (16:18)
[2020-12-28] MEDS: HYDROcodone-acetaminophen 5-325 mg Tablet PO (16:20)
[2020-12-28] MEDS: HYDROmorphone 1 mg/mL INJ 1 mL IVP ×2 (17:38→19:35)
[2020-12-28] MEDS: docusate sodium 100 mg Capsule PO (17:39)
[2020-12-28] MEDS: sodium chloride 0.9% 1,000 ML 200 ML IV (17:39)
--- NOTE | 2020-12-28 18:07 | ANE.PACU2 ---
Inpatient post-anesthesia follow up: Airway intact: Yes Vital signs: Temperature 97.6 F Pulse Rate 57 Respiratory Rate 18 Blood Pressure 118/73 Pulse Oximetry 91 Oxygen Delivery Me thod Room Air Oxygen Flow Rate 2 Fraction of Inspir ed Oxygen Hydration adequate: Yes Nausea and vomiting: No Pain level: 2 Mental status: Baseline
[2020-12-28] MEDS: morphine 4 mg/mL SDV 1 mL IVP (22:57)
[2020-12-28] MEDS: lactated ringers 1,000 ML 200 ML IV (23:00)
[2020-12-29] VITALS (13 sets, daily range): BP systolic 84–100; BP diastolic 51–63; PULSE 58–72; RESP 15–20; TEMP 36.5–36.9; O2SAT 94–97
[2020-12-29] MEDS: HYDROmorphone 1 mg/mL INJ 1 mL IVP ×3 (01:31→18:42)
[2020-12-29] MEDS: HYDROcodone-acetaminophen 5-325 mg Tablet PO ×2 (03:42→10:10)
[2020-12-29] MEDS: ketorolac 30 mg/mL INJ IVP (03:42)
[2020-12-29] MEDS: lactated ringers 1,000 ML 200 ML IV ×2 (04:17→10:08)
[2020-12-29] MEDS: heparin 5,000 unit/mL INJ 1 mL 5000 UNIT SUBCUT (05:08)
[2020-12-29] MEDS: HYDROmorphone 1 mg/mL INJ 1 mL 1.5 MG IVP (07:32)
[2020-12-29 08:00] LABS: Basophils % 0.3 %; Eosinophils % 0.3 %; Hematocrit 33.1 % (37.0-47.0); Hemoglobin 10.1 g/dL (11.5-15.3); Lymphocytes # 1.6 10^3/uL (0.8-4.8); Mean Corpuscular HGB Conc 30.5 g/dL (30.0-36.0); Mean Corpuscular Hemoglobin 27.3 pg (28.0-34.0); Mean Corpuscular Volume 89.5 fL (81-99); Mean Platelet Volume 10.1 fL (7.4-10.4); Monocytes # 0.7 10^3/uL (0.2-0.9); Monocytes % 10.4 %; Neutrophils # 4.62 10^3/uL (1.8-7.7); Neutrophils % 65.4 %; Nucleated Red Blood Cells % 0 %; Platelet Count 191 10^3/cmm (130-400); Red Cell Distribution Width 13.1 % (12.1-15.1); White Blood Count 7.1 10^3/uL (4.0-10.0)
[2020-12-29] MEDS: ondansetron 2 mg/ML SDV 2 mL 4 MG IVP ×2 (10:00→18:42)
--- NOTE | 2020-12-29 11:51 | P.PN_ITS ---
Subjective Subjective: Interval history: The patient had a rough night. Her pain was not controlled. She was not given her IV pain medication and only given [place]. She also did not receive her heparin until 5am this morning. She was not given her Elaquis this morning due to a computer problem. This is why the heparin was given late, again, due to a computer problem. She has her pain under control this morning. She has had her alvarez catheter removed. She has been having good urine output and has already been up to the bedside commode several times today. She ate breakfast, but became nauseous after only a few bites. She has been up and moving in the room. She denies any vaginal bleeding. Medications: Reviewed: Yes Vitals/I&O/Wt Last Vital Signs Temp 97.8 F 12/29/20 07:49 Pulse 72 12/29/20 07:49 Resp 18 12/29/20 11:32 BP 98/62 12/29/20 07:49 Pulse Ox 94 12/29/20 07:49 12/28/20 12/29/20 12/29/20 22:59 06:59 14:59 Intake Total 2850 / 3961.667 1050 / 5011.667 1000 / 1000 Output Total 1200 / 1200 900 / 2100 0 / 0 Balance 1650 / 2761.667 150 / 2911.667 1000 / 1000 Physical Exam Const: COMMON NORMALS: no acute distress, average body habitus, patient oriented x3, no limitations, healthy appearing, alert and well nourished GENERAL APPEARANCE: cooperative, comfortable, well kempt, well developed and anxious ORIENTATION/CONSCIOUSNESS: Yes awake, Yes oriented to person, Yes oriented to place and Yes oriented to time GI: COMMON NORMALS: Soft to palpation, non-tender and no masses PALPATION: Yes Soft to palpation Extremity: COMMON NORMALS: normal to inspection, no clubbing, cyanosis or edema, no calf tenderness and no pedal edema Neuro: COMMON NORMALS: patient oriented x3 SENSORIUM/ORIENTATION: Yes alert, Yes oriented to person, Yes oriented to place and Yes oriented to time Psych: COMMON NORMALS: mental status grossly normal, Normal thought process present, cooperative, normal affect and speech normal APPEARANCE: Yes grossly normal and Yes well kempt SPEECH: Yes normal speech THOUGHT PROCESS: Normal thought process present Urinary Catheter Management^: Alvarez: Cath Placed During This Visit: yes, but has since been removed by the nurse Reason for Continuing Indwelling Catheter: Perioperative Use in Selected Surgeries Urinary Catheter Date of Insertion: 12/28/20 Urinary Catheter Time of Insertion: 13:15 Date Urinary Catheter Removed: 12/29/20 Time Urinary Catheter Discontinued: 04:41 Data : 12/29/20 07:48 A&P Assessment and plan (1) Pelvic pain: Patient underwent a CHRISTINE-BSO. She is doing well this AM. Need to get her pain under control. Restart Elaquis tonight. She received Heparin this morning. encourage ambulation will monitor Hgb, as patient is post op and on Elaquis. Status: Acute (2) Cervical cancer: await pathology Status: Acute Qualifiers: Malignant neoplasm of cervix location: unspecified location Qualified Code(s): C53.9 - Malignant neoplasm of cervix uteri, unspecified Attestations Medical Necessity Statement*: The patient is postop after abdominal surgery. She will likely stay 3 night Coding Level of Care Code Acute Station Installation Supervisor for Elpidio Chung Diagnoses Pelvic pain R10.2 Cervical cancer C53.9 Malignant neoplasm of cervix location: unspecified location
--- NOTE | 2020-12-29 13:20 | PC.CHAP ---
Pastoral Care Encounter/Spiritual Assessment Type of Contact [] Declined bond manager visit [] Patient/Family/Request visit [] Outpatient visit [] Follow-up visit [] Physician referral [] Code/Alert [] Routine visit [] Staff referral [] Actively dying [xx] Patient sleeping [] Family support [] [] Out of room [] Palliative care [] [] Receiving care in room [] Pre-surgical visit [] Trauma [] Long length of stay [] ICU visit [] Other: Relational/Emotional Strength [] Patient feels connected with others/family/visitors/staff [] Distress [] Loneliness/isolation [] Abandonment Spirituality of Patient [] Person of Macarena [] Attends [employer] of their [place] [] Believes in Prayer [] Reads Bible or Presybeterian materials [] There are Spiritual issues to be addressed Material Combiner Interventions [] Prayer [] Active listening [] Non-anxious presence [] Spiritual/emotional support [] Crisis/trauma care [] Spiritual counseling [] Bereavement support [] Provided bereavement packet [] Provided Bible/devotional materials [] Provided toy/stuffed animal, coloring book to patient or family member [] Provided Communion [] Anointing/Ves[place] [] Salvation [] Completed spiritual assessment [] Other: Impact on Illness or Injury [] Angry [] Fearful [] Anxious [] Often cries [] Exhaustion [] Unable to work [] Unable to attend baptism [] Unable to walk/stand [] Unable to read [] Unable to drive [] Unable to eat/drink [] Unable to sleep [] Unable to be with family [] Patient intubated [] Other: Summary Pastoral follow up needed. Time spent with patient
[2020-12-29] MEDS: ibuprofen 800 mg tablet PO (15:25)
[2020-12-29] MEDS: oxyCODONE-APAP 5-325 mg Tablet PO (15:25)
[2020-12-29] MEDS: lactated ringers 1,000 ML 15 ML IV ×2 (15:27→18:43)
--- NOTE | 2020-12-29 16:19 | PC.NURSE ---
This nurse called Dr. Dan to update on status of transfer to OB department. Dr. Dan stated she wants BMP drawn before she rounds on pt at 1700. This nurse called lab and spoke to Leandro, who informed this nurse that she received a call from a different nurse stating the pt is not to be stuck again for labs and that they are out of sticks but she will try to find someone else who can draw labs.
[2020-12-29 16:55] LABS: Anion Gap 11.7 (5-19); Blood Urea Nitrogen 8 mg/dL (6-20); Calcium 7.9 mg/dL (8.5-10.5); Carbon Dioxide 25 mmol/L (22-29); Chloride 104 mmol/L (98-107); Glucose 93 mg/dL (65-115); Osmolality Calculated 282 mOsm/kg (285-295); Potassium 3.7 mmol/L (3.5-5.1); Sodium 137 mmol/L (136-145)
[2020-12-29] MEDS: apixaban 5 mg Tablet 2.5 MG PO (17:37)
[2020-12-30] VITALS (8 sets, daily range): BP systolic 85–125; BP diastolic 49–68; PULSE 65–80; RESP 14–18; TEMP 36.5–36.9; O2SAT 96–97
[2020-12-30] MEDS: ibuprofen 800 mg tablet PO ×2 (00:04→10:44)
[2020-12-30] MEDS: HYDROmorphone 1 mg/mL INJ 1 mL IVP (01:30)
[2020-12-30] MEDS: ondansetron 2 mg/ML SDV 2 mL 4 MG IVP (02:10)
[2020-12-30] MEDS: oxyCODONE-APAP 5-325 mg Tablet PO (03:22)
--- NOTE | 2020-12-30 04:25 | PC.NURSE ---
AFTER 2 UNSUCCESSFUL ATTEMPTS AT BLOOD DRAW/IV START, DURING WHICH THE PT WAS VERY UNCOMFORTABLE, THIS NURSE CONTACTED ER STAFF FOR ASSISTANCE WITH ULTRASOUND MACHINE. RASHEED FROM ER CAME TO BEDSIDE AND ATTEMPTED 4 TIMES. ONCE WITH ULTRASOUND GUIDANCE. PT EXPRESSED HER DESIRE TO STOP TRYING. DR. OSWALD NOTIFIED.
[2020-12-30] MEDS: morphine 4 mg/mL SDV 1 mL IM (06:07)
[2020-12-30] MEDS: apixaban 5 mg Tablet 2.5 MG PO ×2 (06:39→19:05)
[2020-12-30] MEDS: docusate sodium 100 mg Capsule PO ×2 (08:32→19:04)
[2020-12-30] MEDS: oxyCODONE-APAP 5-325 mg Tablet 2 TAB PO (09:15)
--- NOTE | 2020-12-30 09:45 | PC.NURSE ---
THIS NURSE ENTERED PT'S ROOM AFTER SHE EXITED SHOWER TO ASSESS HER PAIN. PT WAS EXITING THE BATHROOM WHEN THE NURSE ENTERED THE ROOM. PT PAIN WOULD BE 5 OUT OF 10 ON FLACC SCALE. PT EYES APPEAR GLASSY AND PT WALKS OVER TO BED, SITS DOWN, AND PUTS HER LEGS UP ON HER OWN WITHOUT GRIMACE. THE PT STATED SHE WAS NOT GETTING ANY PAIN RELIEF FROM THE OXYCODONE ADMINISTERED EARLIER. THIS NURSE ASKED THE PT IF SHE GOT ANY RELIEF BEFORE SHE GOT IN THE SHOWER AND THE PT STATED A LITTLE BIT. THIS NURSE ASKED THE PT IF SHE WOULD LIKE TO TAKE SOME IBUPROFEN TO HELP WITH THE BREAKTHROUGH PAIN. THE PT STATED 'TYLENOL AND IBUPROFEN DON'T EVEN HELP WITH A HEADACHE SO THEY AREN'T GOING TO HELP WITH MY INSIDES BEING CUT OPEN.' THIS NURSE EDUCATED PT THAT TAKING THE MEDICATIONS ON A SCHEDULE WILL HELP AND EDUCATED PT THAT IBUPROFEN IS AN NSAID AND WORKS WITH THE OXYCODONE TO DECREASE INFLAMMATION. THE PT STATED 'I DON'T UNDERSTAND WHY ONE DOCTOR SAYS ONE THING AND THE NEW DOCTOR SAYS SOMETHING ELSE. DR. OSWALD CAME TO THE OTHER FLOOR AND THREW A FIT BECAUSE I WAS NOT GETTING THE PAIN MEDICATION THAT STARTS WITH A D THROUGH MY IV AND THAT'S THE ONLY THING THAT HELPS MY PAIN.' THIS NURSE STATED TO THE PT THAT SHE NO LONGER HAS AN IV AND IF SHE PLANS TO BE DISCHARGED HOME SHE HAS TO BE TAKING ORAL PAIN MEDICATION. THE PT STATED 'THAT STUFF DOES NOT HELP MY PAIN. AT ALL. AND I WAS TOLD WHEN I CAME OVER HERE THAT I WOULD HAVE MY PAIN CONTROLLED.' THIS NURSE STATED TO PT THAT DR. PUGA COULD BE CALLED AND ASKED WHAT ELSE COULD BE DONE. PT STARED AT THE TELEVISION.
[2020-12-30] MEDS: ondansetron 4 MG Tablet PO (10:45)
--- NOTE | 2020-12-30 11:20 | PC.NURSE ---
THIS NURSE AND Nasra WESTON, RN WENT INTO PT ROOM TO DISCUSS PLAN OF CARE WITH PT. PT NOTED TO BE UP IN ROOM. PT APPEARED TO HAVE GLASSY LOOK TO HER EYES AND THIS NURSE WOULD FLACC HER 5 OUT OF 10. THIS NURSE REPORTED DR. PUGA WAS GOING TO CONTINUE WITH PLAN OF CARE WHICH INCLUDES MOTRIN 800MG PO Q8H AND OXYCODONE 5/325MG PO Q6H FOR PAIN. THIS NURSE ATTEMPTED TO EXPLAIN TO PT ABOUT STAYING ON SCHEDULE WITH THESE MEDICATIONS TO HELP WITH PAIN. PT STATED MULTIPLE TIMES I'M NOT IN PAIN. I'M FINE THIS NURSE ASKED PT IF SHE WOULD LIKE TO TAKE THE MOTRIN AND ZOFRAN PREVIOUSLY BROUGHT IN AND SHE STATED WHATEVER THIS NURSE GAVE THE PT MEDICATION AND SHE TOOK THEM. THE PT STATED THAT SHE IS IN EXTREME PAIN AND THIS IS STUPID THAT ONE DOCTOR SAYS ONE THING AND ANOTHER DOCTOR SAYS ANOTHER. ITS NOT MY FAULT YOU CAN'T GET AN IV IN ME. THIS ONE ON MY ARM WAS EVEN ATTEMPTED BY US. THIS NURSE STATED DR. PUGA DOES NOT GIVE IV PAIN MEDICATION TO PTS WHO CAN TOLERATE FOOD AND MEDICATION BY MOUTH, SHE WILL ONLY ALLOW PO MEDICATION FOR PAIN MANAGEMENT. THE PT STATED 'OK' PT ALSO STATED THAT SHE WAS NOT GIVEN THE RIGHT MEDICATION THIS MORNING AND SHE WAS GIVEN THE WRONG DOSAGE OF HER XANAX. THIS NURSE AND Nasra WESTON, LOOKED AT THE MAR AND VERIFIED THAT THE PT WAS ADMINISTERED 0.5MG XANAX THIS MORNING WITH HER OTHER MEDICATIONS AND THIS NURSE WENT TO THE MEDICATION ROOM AND RETRIEVED THE PT'S HOME MEDICATIONS. THIS NURSE ASKED THE PT WHICH MEDICATION SHE TAKES IN THE MORNING. THE PT SHOWED THE NURSE WHICH XANAX PILL SHE TAKES IN THE MORNING, WHICH IS THE 1MG XANAX AND SHE TAKES THE 0.5MG XANAX NEEDED DURING THE DAY. THIS NURSE ADMINISTERED MEDICATION NEEDED AND ASKED PT IF SHE NEEDED ANYTHING ELSE AND SHE CONTINUED TO WATCH TELEVISION.
--- NOTE | 2020-12-30 15:04 | P.PN_ITS ---
Subjective Subjective: Interval history: SUBJECTIVE: Ms. Black is doing okay today. She states her pain is 5 out of 10 unless she moves about. She has questions about pain management. Feels like the food that she is meeting is not going well with her. She is voiding without any difficulty and continues to pass flatus. She is questions as to the amount she needs to eat. She has been getting the Eliquis and denies any chest pain, shortness of breath, vomiting. Does admit to feeling nauseous especially when she takes her Percocet. OBJECTIVE/PHYSICAL EXAM: Gen.: No acute distress Heart: S1-S2 heard, regular rate and rhythm Lungs: Clear to auscultation bilaterally Abdomen: Soft, nondistended, normoactive bowel sounds, tenderness around incision. Incision: Clean dry and intact with Legs: No calf tenderness, no pedal edema. ASSESSMENT AND PLAN: 45-year-old 3 para 3 status post CHRISTINE, postoperative day #2 -Continue regular diet-eat small amounts every 2-3 hours -Zofran p.o. as needed nausea -P.o. pain medications---had a long discussion with patient about pain management and pain management goals. Discussed that after hysterectomy the best pain control to be anticipated is about 4-5 out of 10 given postoperative pain but anything more than that we can control. Discussed I would recommend cutting down from 2 oxycodone to just 1 tablet every 4 hours on schedule to see if this helps, ibuprofen for breakthrough pain-only 200 to 400 mg given that she is on Eliquis. She understands this and is willing to try this as it has been almost 6 hours since her last Percocet and she is doing pretty good. -Continue incentive spirometer use -Continue SCD and ambulation for DVT prophylaxis. Continue Eliquis Vitals/I&O/Wt Last Vital Signs Temp 98.5 F 12/30/20 09:44 Pulse 65 12/30/20 14:09 Resp 16 12/30/20 14:09 BP 85/49 12/30/20 14:09 Pulse Ox 97 12/30/20 10:33 12/30/20 12/30/20 12/30/20 06:59 14:59 22:59 Intake Total 139.25 / 2988.25 Output Total 1000 / 1000 Balance -860.75 / 1988.25 Physical Exam Urinary Catheter Management^: Gusman: Cath Placed During This Visit: yes, but has since been removed by the nurse Reason for Continuing Indwelling Catheter: Perioperative Use in Selected Surgeries Urinary Catheter Date of Insertion: 12/28/20 Urinary Catheter Time of Insertion: 13:15 Date Urinary Catheter Removed: 12/29/20 Time Urinary Catheter Discontinued: 04:41 Data : 12/29/20 07:48 12/29/20 16:29 Attestations Medical Necessity Statement*: Patient needs to stay for 1 more midnight to recover from surgery Coding Level of Care Code Acute Food Processing Scientist for Elpidio Chung
[2020-12-30] MEDS: oxyCODONE-APAP 5-325 mg Tablet 1 TAB PO ×3 (15:39→23:08)
--- NOTE | 2020-12-30 18:07 | PC.NURSE ---
1800 PT RESTING WITH EYES CLOSED, RESP EVEN AND NON LABORED, PATIENT DID NOT EVEN WAKE UP AND I KNOCKED ON DOOR AND CALLED HER NAME. WILL GO BACK AND DO VITALS LATER.
[2020-12-30] MEDS: ibuprofen 200 mg Tablet PO (19:38)
--- NOTE | 2020-12-30 21:59 | PC.NURSE ---
PAINTING AND COATING WORKER ROUNDED ON PT AT 2100 PT IN BATHROOM. PAINTING AND COATING WORKER ASKED PT IF SHE NEEDED ANYTHING PT DID NOT ANSWER. ROUNDED ON PT 10 MIN LATER PT IN CHAIR WATCHING TV. PAINTING AND COATING WORKER TALKED WITH PT ABOUT PAIN LEVEL, PT STATED PAIN IS BETTER BUT SHE IS STILL HURTING. NURSE WOULD FLACC PT AT A 4/10. PT ASKED NURSE IF THERE WAS ANYONE FROM [facility] IN HOUSE WHO COULD COME TALK WITH HER. NURSE STATED THERE WAS NO ONE IN HOUSE AT THIS TIME BUT ONE COULD BE CALLED. PT STATED THAT IS FINE. NURSE LEFT ROOM TO CALL [facility], LISY STATED SHE WOULD COME IN TO TALK WITH PT. LISY ARRIVED AT 2158.
[2020-12-31 02:00] VITALS: BP 92/59; PULSE 74; RESP 17; TEMP 37; O2SAT 95
[2020-12-31 03:06] VITALS: RESP 17
[2020-12-31] MEDS: oxyCODONE-APAP 5-325 mg Tablet 1 TAB PO ×2 (03:06→08:05)
--- NOTE | 2020-12-31 04:08 | PC.NURSE ---
RN at bedside pt resting in bed with eyes closed with respirations of 18.
[2020-12-31 06:00] VITALS: BP 101/64; PULSE 82; RESP 17; TEMP 36.8; O2SAT 95
--- NOTE | 2020-12-31 07:31 | PM.DCS ---
Discharge Providers Date of Admission: 12/28/20 09:14 Date of Discharge: December 31, 2020 Attending Provider at Admission: Gladis Dan MD Attending Provider at Discharge: Gladis Dan MD Admission diagnosis: History of pulmonary embolism, pelvic pain, abnormal uterine bleeding Discharge diagnosis: Status post hysterectomy on 12/28/2020 She underwent an uncomplicated surgery on 12/28/[address] Dan--see her operative report for details. On postoperative day 0 she had SCDs and pain was controlled by IV pain meds managed by Dr. Dan. She denied nausea, vomiting, fever, chills, shortness of breath, leg pain. She had minimal vaginal bleeding. Gusman catheter was kept overnight and she had adequate urine output. On postoperative day #1 she continued to do well with stable vital signs and stable hemoglobin at 10.1. Gusman catheter was removed and patient was able to void without difficulty. She ambulated well started passing flatus and then tolerated a regular diet. Initially pain was not well controlled because patient thought that 0 pain was expectation postoperatively. After discussion pain was better controlled with Percocet 1 tablet every 4-5 hours. She continued to do well on postoperative day #2 and day 3 and had stable vital signs. She was continued on Eliquis and SCDs during hospital stay for DVT prophylaxis. She did ambulate around the room and around the corley and did use incentive spirometer. - She was discharged home on postoperative day #3 in a stable condition. Warning signs for wound infection, cuff infection, DVT/PE were reviewed with her. Post surgical activity restrictions were also reviewed with her at all her questions were answered to her satisfaction. This documentation was created by [employer] account development representative software (known for inherent account development representative error). Every effort was made to assure accuracy of account development representative. Any obvious errors or omissions should be clarified with the author of the document. Primary Care Provider: Minal Sanders MD Diagnoses at Discharge Discharge Diagnosis (1) Pelvic pain: Status: Acute (2) Cervical cancer: Status: Acute Qualifiers: Malignant neoplasm of cervix location: unspecified location Qualified Code(s): C53.9 - Malignant neoplasm of cervix uteri, unspecified Reason for Visit Reason for Visit: total abdominal hysterectomy Physical Exam Urinary Catheter Management^: Gusman: Cath Placed During This Visit: yes, but has since been removed by the nurse Reason for Continuing Indwelling Catheter: Perioperative Use in Selected Surgeries Urinary Catheter Date of Insertion: 12/28/20 Urinary Catheter Time of Insertion: 13:15 Date Urinary Catheter Removed: 12/29/20 Time Urinary Catheter Discontinued: 04:41 Discharge Data Data Completed and Pending: Pending at discharge Category Date Time Status Pathology: Surgic al [PTH] Routine Pth 12/28/20 15:07 Received Vitals: Last Vital Signs Temp 98.2 F 12/31/20 06:00 Pulse 82 12/31/20 06:00 Resp 17 12/31/20 06:00 BP 101/64 12/31/20 06:00 Pulse Ox 95 12/31/20 06:00 Discharge Plan Discharge Patient Disposition: Home Condition: Stable Prescriptions: New Percocet 5-325 mg tablet 1 tab PO Q4H PRN (Reason: pain) Qty: 30 RF: 0 docusate sodium 100 mg Capsule 100 mg PO BID PRN (Reason: constipation) Qty: 30 RF: 0 Continued promethazine 25 mg tablet 25 mg PO TID PRN (Reason: nausea and vomiting) RF: 0 magnesium oxide 400 mg magnesium tablet 400 mg PO DAILY RF: 0 alprazolam [Xanax] 0.5 mg tablet 0.5 mg PO TID PRN (Reason: anxiety) Qty: 90 RF: 2 alprazolam [Xanax XR] 1 mg tablet extended release 24 hr 1 mg PO DAILY Qty: 30 RF: 2 Eliquis 2.5 mg tablet See Rx Instructions .ROUTE .COMPLEX Qty: 60 RF: 5 metoprolol succinate 25 mg tablet extended release 24 hr 12.5 mg PO DAILY 90 Days Qty: 45 RF: 1 erenumab-aooe [Aimovig Autoinjector] 140 mg/mL auto-injector See Rx Instructions .ROUTE .COMPLEX Qty: 1 RF: 3 memantine [Namenda] 10 mg tablet 10 mg PO BID Qty: 60 RF: 3 Belsomra 20 mg tablet 20 mg PO BEDTIME RF: 0 Discontinued heparin (porcine) 5,000 unit/mL (1 mL) cartridge 5,000 unit SUBCUT Q12H Qty: 50 RF: 0 Discharge Orders: Discharge Order (Routine); Ordered 12/31/20 Ordered By: Coco Adhikari Patient Instructions: OB Abdominal Surgery - [facility], OB Discharge Report, OB Food/Drug Interaction Guide Activity Restrictions/Additional Instructions: Pelvic rest for 6 weeks, no heavy for 6 weeks Discharge Attestations Time Spent in Discharge Care*: greater than 30 min Status at Discharge: Cognitive status at discharge: cognitively intact, Behavioral status at discharge: cooperative, Quality Metrics Clinical Quality Measures During this hospital stay, did patient experience: None Coding Level of Care Code Acute Chg FW DC note Diagnoses Pelvic pain R10.2 Cervical cancer C53.9 Malignant neoplasm of cervix location: unspecified location
--- NOTE | 2020-12-31 07:55 | PC.NURSE ---
3732 THIS SUCTION DREDGE DUMPING SUPERVISOR ATTEMPTED X1 WITH #24 [facility] TO OBTAIN LAB AND WAS UNABLE TO GET IT, HAD BLOOD RETURN AND THEN PATIENT PULLED BACK AND THEN I WAS UNABLE DRAW BLOOD. SO THIS SUCTION DREDGE DUMPING SUPERVISOR CALLED AND TALKED WITH RAQUEL IN LAB AND ASK HER TO COME DRAW BLOOD, TOLD HER THAT IF SHE COULD GET IT IN ONE STICK THAT WOULD BE GREAT OTHERWISE WE WERE NOT GOING TO STICK HER AGAIN. THIS SUCTION DREDGE DUMPING SUPERVISOR TOLD DR. PUGA WHAT THE PLAN WAS AND SHE WAS FINE WITH IT AND I TOLD HER THAT I WOULD LET HER KNOW WHAT HAPPENS.
[2020-12-31] MEDS: docusate sodium 100 mg Capsule PO (08:06)
--- NOTE | 2020-12-31 08:30 | PC.NURSE ---
LAB WAS UNABLE TO GET LAB PATIENT KEEP PULLING BACK.
[2020-12-31 08:45] VITALS: BP 91/58; PULSE 81; RESP 16; TEMP 36.8; O2SAT 98
[2020-12-31 08:49] VITALS: BP 91/58; PULSE 81; RESP 16; TEMP 36.8; O2SAT 98
--- NOTE | 2020-12-31 09:31 | PC.NURSE ---
HOME MEDICATIONS GIVEN BACK TO PT PRIOR TO HER LEAVING.
== END 2020-12-31 09:25 | disposition home or self-care (01) | DRG 743 ==
LOC: OR 09:46 → MEDSURG 14:49 → OBGYN 12-29 18:32
PROVIDERS: Admitting Provider Obstetrics & Gynecology; PCP Family Medicine; Visit Provider Obstetrics & Gynecology
PROC: 0UT90ZZ Resection of Uterus, Open Approach (ICD-10-PCS; CPT 58150; principal; 2020-12-28 10:50)
PROC: 0UT90ZZ Resection of Uterus, Open Approach (ICD-10-PCS; CPT 58720; 2020-12-28 10:50)
DX: N92.0 Excessive and frequent menstruation with regular cycle (principal); Z86.711 Personal history of pulmonary embolism; Z79.01 Long term (current) use of anticoagulants; Z85.41 Personal history of malignant neoplasm of cervix uteri; K21.9 Gastro-esophageal reflux disease without esophagitis; F41.8 Other specified anxiety disorders; M79.7 Fibromyalgia; F43.12 Post-traumatic stress disorder, chronic; G47.33 Obstructive sleep apnea (adult) (pediatric)
CPT/HCPCS: 36415; 80048; 81003; 84703; 85025; 87086; 88307; 94669; 96365; 96372; 96374; 96375; J0690; J0694; J1100; J1170; J1644; J1885; J2250; J2270; J2405; J2704; J3010; J3490; J7030; Q0162

== ENCOUNTER → 2021-01-03 09:50 | Outpatient (BNVA) | payer MEDICARE, MEDICAID, SELFPAY | PROVIDERS: PCP Family Medicine; Visit Provider Obstetrics & Gynecology | DX: R10.9 Unspecified abdominal pain (principal); R42 Dizziness and giddiness; Z98.890 Other specified postprocedural states | CPT/HCPCS: 80053; 85025 ==

== ENCOUNTER → 2021-01-24 15:42 | Outpatient (BNVA) | payer MEDICARE, MEDICAID, SELFPAY | PROVIDERS: PCP Family Medicine; Visit Provider Registered Nurse | DX: Z03.89 Encounter for observation for other suspected diseases and conditions ruled out (principal) | CPT/HCPCS: 82306; 82607; 82746 ==

== ENCOUNTER → 2021-02-07 10:42 | Outpatient (BNVA) | payer MEDICARE, MEDICAID, SELFPAY | PROVIDERS: PCP Family Medicine; Visit Provider Specialist | DX: G43.711 Chronic migraine without aura, intractable, with status migrainosus (principal) | CPT/HCPCS: 96372; 99214; J1885 ==

== ENCOUNTER → 2021-04-23 11:36 | Outpatient (BNVA) | payer MEDICARE, MEDICAID, SELFPAY | PROVIDERS: PCP Family Medicine; Visit Provider Nurse Practitioner Family | DX: Z20.822 Contact with and (suspected) exposure to COVID-19 (principal); G43.909 Migraine, unspecified, not intractable, without status migrainosus; R51.9 Headache, unspecified | CPT/HCPCS: 87635 ==

== ENCOUNTER → 2021-05-24 14:47 | Outpatient (BNVA) | payer MEDICARE, MEDICAID, SELFPAY | PROVIDERS: PCP Family Medicine; Visit Provider Specialist | DX: M54.81 Occipital neuralgia (principal); G43.711 Chronic migraine without aura, intractable, with status migrainosus; F44.5 Conversion disorder with seizures or convulsions; M54.2 Cervicalgia; M54.9 Dorsalgia, unspecified; Z13.820 Encounter for screening for osteoporosis | CPT/HCPCS: 64405; 99213; 99214; J1030; J3490 ==

== ENCOUNTER 2021-06-04 14:34 | Outpatient (CLI) | payer MEDICARE, MEDICAID, SELFPAY ==
--- NOTE | 2021-06-04 13:00 | XR_ITS ---
WS: [id number] Exam: XR cervical spine 3V* [id number] Date/Time of Exam: 06/04/2021 1:00 PM Reason For Exam: M54.2 - Cervicalgia No acute fracture or dislocation. There is straightening and slight reversal of the normal cervical C curve. The odontoid is intact. Normal paraspinal soft tissues. XR/XR cervical spine 3V* [id number] IMPRESSION: 1. Straightening of the C-spine. No fracture or malalignment.
--- NOTE | 2021-06-04 14:45 | XR_ITS ---
WS: [id number] Exam: XR thoracic spine 2V [id number] Date/Time of Exam: 06/04/2021 2:45 PM Reason For Exam: M54.9 - Dorsalgia, unspecified Comparison 04/08/2017. No fracture or dislocation. Moderate dextroscoliosis. Normal paraspinal soft tissues. Overall, no ijeoma nge since previous study. XR/XR thoracic spine 2V [id number] IMPRESSION: 1. No fracture or malalignment. 2. Dextroscoliosis.
--- NOTE | 2021-06-04 15:15 | XR_ITS ---
WS: [id number] DEXA (DUAL ENERGY X-RAY ABSORPTIOMETRY) Bone mineral density was performed using a [employer] machine. HISTORY: Z13.820 - Encounter for screening for osteoporosis COMPARISON: None available. Lumbar spine BMD (L1-L4): 1.284 g/cm2 T score: 0.9 Z score: 0.1 Total hip BMD: Left: 1.171 g/cm2. T score: 1.3 Z score: 1.0 Right: 1.140 g/cm2. T score: 1.0 Z score: 0.8 10 year probability of a major osteoporotic fracture is 8.6%. XR/XR DEXA axial skeleton* [id number] IMPRESSION: Normal bone mineral density based upon the WHO classification for females.
== END 2021-06-04 14:35 | disposition home or self-care (01) ==
PROVIDERS: PCP Family Medicine; Visit Provider Specialist
DX: Z13.820 Encounter for screening for osteoporosis (principal); M54.2 Cervicalgia; M54.6 Pain in thoracic spine; M41.84 Other forms of scoliosis, thoracic region
CPT/HCPCS: 72040; 72070; 77080

== ENCOUNTER 2021-06-15 09:07 | Outpatient (CLI) | payer MEDICARE, MEDICAID, SELFPAY ==
--- NOTE | 2021-06-15 09:12 | MM_ITS ---
WS: [id number] BILATERAL DIGITAL SCREENING MAMMOGRAPHY WITH CAD CLINICAL INFORMATION: SCREENING HISTORY: Screening mammogram. No current complaints. COMPARISON: April 26, 2020 TECHNIQUE: Bilateral CC and MLO views. FINDINGS: The breasts are composed of heterogeneous fibroglandular density tissue, which can limit the detectio n of small underlying mass lesions. Interval decrease in size of the large cysts today measuring 1.8 x 1.9 CM. No suspicious mass, asymmetry, calcifications, or architectural distortion. No evidence of malignancy. MM/[place] [id number] IMPRESSION: BI-RADS: 2-Benign FOLLOW UP: 1 Year Follow-up Recommend return to annual screening mammography.
== END 2021-06-15 09:08 | disposition home or self-care (01) ==
LOC: RADSHAW 09:11
PROVIDERS: PCP Family Medicine; Visit Provider Family Medicine
DX: Z12.31 Encounter for screening mammogram for malignant neoplasm of breast (principal)
CPT/HCPCS: 77067

== ENCOUNTER → 2021-07-24 08:54 | Outpatient (BNVA) | payer MEDICARE, MEDICAID, SELFPAY | PROVIDERS: PCP Family Medicine; Visit Provider Specialist | DX: M54.81 Occipital neuralgia (principal); G43.711 Chronic migraine without aura, intractable, with status migrainosus | CPT/HCPCS: 64405; 64450; J1030; J3490 ==

== ENCOUNTER → 2021-09-25 07:50 | Outpatient (BNVA) | payer MEDICARE, MEDICAID, SELFPAY | PROVIDERS: PCP Family Medicine; Visit Provider Specialist | DX: M54.81 Occipital neuralgia (principal); M46.1 Sacroiliitis, not elsewhere classified; F44.5 Conversion disorder with seizures or convulsions; F43.12 Post-traumatic stress disorder, chronic | CPT/HCPCS: 64405; 64450; 99214; J1030; J3490 ==

== ENCOUNTER → 2021-10-30 08:00 | Outpatient (BNVA) | payer MEDICARE, MEDICAID, SELFPAY | PROVIDERS: PCP Family Medicine; Visit Provider Specialist | DX: M54.81 Occipital neuralgia (principal); G43.711 Chronic migraine without aura, intractable, with status migrainosus | CPT/HCPCS: 64405; 64450; 96372; 99212; J1030; J1885; J3490 ==

== ENCOUNTER 2021-11-05 19:19 | Emergency (ER) | payer MEDICARE, MEDICAID, SELFPAY ==
[2021-11-05 20:05] VITALS: BP 116/76; PULSE 102; RESP 22; TEMP 37.9; O2SAT 95; BMI 28.7
[2021-11-05 21:06] LABS: Rapid Strep A Test Negative (Negative)
[2021-11-05 21:20] LABS: Influenza A by IFA Negative (Negative); Influenza B by IFA Negative (Negative)
[2021-11-07 17:52] LABS: Quest SARS-CoV-2 RNA NOT DETECTED (NOT DETECTED)
== END 2021-11-05 22:22 | disposition left against medical advice (07) ==
PROVIDERS: Physician Assistant; Emergency Provider Family Medicine; PCP Family Medicine
DX: Z53.21 Procedure and treatment not carried out due to patient leaving prior to being seen by health care provider (principal)
CPT/HCPCS: 87081; 87635; 87804; 87880

== ENCOUNTER → 2021-11-19 13:03 | Outpatient (BNVA) | payer MEDICARE, MEDICAID, SELFPAY | PROVIDERS: PCP Family Medicine; Visit Provider Nurse Practitioner Family | DX: R06.02 Shortness of breath (principal); R07.89 Other chest pain; H61.20 Impacted cerumen, unspecified ear; M94.0 Chondrocostal junction syndrome [Tietze]; H61.23 Impacted cerumen, bilateral; R05.9 Cough, unspecified | CPT/HCPCS: 71046 ==

== ENCOUNTER → 2021-11-29 17:41 | Outpatient (BNVA) | payer MEDICARE, MEDICAID, SELFPAY | PROVIDERS: PCP Family Medicine; Visit Provider Emergency Medicine | DX: J02.9 Acute pharyngitis, unspecified (principal); J01.00 Acute maxillary sinusitis, unspecified; J40 Bronchitis, not specified as acute or chronic | CPT/HCPCS: 87880 ==

== ENCOUNTER → 2022-01-01 12:54 | Outpatient (BNVA) | payer MEDICARE, MEDICAID, SELFPAY | PROVIDERS: PCP Family Medicine; Visit Provider Psychiatry & Neurology Psychiatry | DX: F41.1 Generalized anxiety disorder (principal); F43.12 Post-traumatic stress disorder, chronic; F33.1 Major depressive disorder, recurrent, moderate; F31.9 Bipolar disorder, unspecified; J30.2 Other seasonal allergic rhinitis | CPT/HCPCS: 99214 ==

== ENCOUNTER → 2022-01-29 17:28 | Outpatient (BNVA) | payer MEDICARE, MEDICAID, SELFPAY | PROVIDERS: PCP Family Medicine; Visit Provider Emergency Medicine | DX: R68.89 Other general symptoms and signs (principal) | CPT/HCPCS: 87400 ==

== ENCOUNTER 2022-01-30 16:59 | Emergency (ER) | payer MEDICARE, MEDICAID, SELFPAY ==
[2022-01-30 17:23] VITALS: BP 118/74; PULSE 100; RESP 18; TEMP 36.6; O2SAT 94; BMI 29.4
--- NOTE | 2022-01-30 17:50 | CTR_ITS ---
PROCEDURE INFORMATION: Exam: CT Abdomen And Pelvis With Contrast Exam date and time: 01/30/2022 7:22 PM Age: 46 years old Clinical indication: Nausea and vomiting; Abdominal pain; Generalized; Prior surgery; Patient HX: N/v/d dizziness and fever; Additional info: Abd pain TECHNIQUE: Imaging protocol: Computed tomography of the abdomen and pelvis with contrast. Radiation optimization: All CT scans at this facility use at least one of these dose optimization techniques: automated exposure control; mA and/or kV adjustment per patient size (includes targeted exams where dose is matched to clinical indication); or iterative reconstruction. Contrast material: OMNI 350; Contrast volume: 96 ml; Contrast route: INTRAVENOUS (IV); COMPARISON: CT Abdomen/Pelvis [facility] [id number] 11/24/2015 12:09 PM RADIATION DOSE METRICS: Total DLP (mGy-cm): 1799.07 FINDINGS: Liver: Anterior right liver subcapsular low-attenuation lesion measures 0.7 cm transverse diameter without change from remote comparison. Additional hypoattenuating lesion in the caudate lobe of the right liver measures 0.7 cm stable from comparison. Gallbladder and bile ducts: Normal. No calcified stones. No ductal dilation. Pancreas: Normal. No ductal dilation. Spleen: Normal. No splenomegaly. Adrenal glands: Normal. No mass. Kidneys and ureters: Normal. No hydronephrosis. Stomach and bowel: Unremarkable. No obstruction. No mucosal thickening. Appendix: No evidence of appendicitis. Intraperitoneal space: Unremarkable. No free air. No significant fluid collection. Arteries: Unremarkable. No abdominal aortic aneurysm. Lymph nodes: Unremarkable. No enlarged lymph nodes. Urinary bladder: Unremarkable as visualized. Reproductive: Hysterectomy. Bones/joints: Unremarkable. No acute fracture. Soft tissues: Unremarkable. CT/CT abdomen pelvis w con* [id number] IMPRESSION: Negative for acute abdominopelvic pathology.
--- NOTE | 2022-01-30 17:52 | ED_ITS ---
HPI - Abdominal Pain General: Chief Complaint: Abdominal Pain Stated Complaint: nausea/vomiting/dizziness/diarrhea/fever Time Seen by Provider: 01/30/22 17:31 Source: patient Mode of arrival: ambulatory Limitations: no limitations History of Present Illness: 46-year-old female who states that over the last 2 days fever along with abdominal pain and nausea vomiting. States she had multiple episodes of vomiting has felt sick to her stomach. She denies any worsening proving factors she had a Zofran yesterday and states that did not help. Denies any chest pain denies any cough denies any recent sick contacts. Associated Symptoms: Reports fever(s), nausea and vomiting; Denies dysuria Related Data: Date of Last Menstrual Period: 10/13/20 Review of Systems Const: Reports: fever(s) Eyes: Denies: blurry vision or eye discomfort ENMT: Denies: throat pain or dental pain Card: Denies: chest pain Resp: Denies: dyspnea GI: Reports: abdominal pain, nausea and vomiting : Denies: dysuria Musc: Denies: neck pain or back pain Skin/Breast: Denies: rash Neuro: Denies: headache(s) Psych: Denies: depression David/Lymph: Denies: easy bruising All/Imm: Denies: urticaria PFSH ED PFSH: Medical History Bipolar disorder, unspecified Chronic post-traumatic stress disorder Fibromyalgia CIRA (generalized anxiety disorder) Generalized anxiety disorder GERD (gastroesophageal reflux disease) Hx pulmonary embolism Major depressive disorder, recurrent, moderate Migraine with aura, intractable, with status migrainosus MARIE (obstructive sleep apnea) Pneumothorax Pseudoseizure Psychiatric care PTSD (post-traumatic stress disorder) Surgical History H/O bilateral salpingectomy H/O section H/O total hysterectomy H/O tubal ligation Family History Father Hypertension Diabetes Grandfather Diabetes Grandmother Diabetes Mother Heart disease Social History Smoking and tobacco status: never smoked Alcohol intake: current Alcohol intake frequency: holidays/special occasions only History of recent travel: No Current gender identity: Female Female Reproductive History: Date of last menstrual period: 10/13/20 Spontaneous abortions: No Physical Exam Const: COMMON NORMALS: no acute distress, patient oriented x3 and healthy appearing HENMT: COMMON NORMALS: normocephalic and atraumatic HEAD & SCALP: normocephalic and atraumatic Eye: COMMON NORMALS: Equal, round and reactive pupils present and EOMs intact bilaterally PUPIL: Yes Equal, round and reactive pupils present Neck/C-Spine: COMMON NORMALS: full ROM and supple Chest: COMMONS NORMALS: normal inspection of the chest and normal palpation of entire chest wall Resp: COMMON NORMALS: normal respiratory effort, No retractions, No use of accessory muscles and clear to auscultation bilaterally AUSCULTATION: clear to auscultation bilaterally Cardio: COMMON NORMALS: regular rate, regular rhythm and No murmurs present (Cardio) RATE: regular rate RHYTHM: regular rhythm GI: COMMON NORMALS: Normal to inspection, nondistended, normoactive bowel sounds present, Soft to palpation, non-tender and no masses PALPATION: Yes Soft to palpation Extremity: COMMON NORMALS: normal to inspection and full ROM Neuro: COMMON NORMALS: patient oriented x3, moves all extremities and no focal motor deficits Psych: COMMON NORMALS: mental status grossly normal, Normal thought process present and cooperative THOUGHT PROCESS: Normal thought process present Skin: COMMON NORMALS: no rashes or lesions noted and no wounds GENERAL SKIN EXAM: no rashes or lesions noted Course Vital Signs: Vital signs: Vital Signs Temperature 98.9 F 01/30/22 20:52 Pulse Rate 90 01/30/22 20:52 Respiratory Rate 16 01/30/22 20:52 Blood Pressure 130/74 01/30/22 20:52 Pulse Oximetry 96 01/30/22 20:52 MDM - Abdominal Pain Medical Decision Making Patient presents here with nausea vomiting some abdominal pain CT scan blood work here is all normal we will prescribe her Reglan for home she is to follow- up with PCP and return if worsening she understands agrees to plan. Lab Data : 01/30/22 19:15 01/30/22 19:15 Labs/Radiology: Radiology Impressions Abdomen/Pelvis CT 01/30/22 17:50 IMPRESSION: Negative for acute abdominopelvic pathology. Laboratory Results WBC 13.1 10^3/uL (4.0-10.0) H 01/30/22 19:15 RBC 4.94 10^6/uL (4.1-5.3) 01/30/22 19:15 Hgb 12.9 g/dL (11.5-15.3) 01/30/22 19:15 Hct 40.2 % (37.0-47.0) 01/30/22 19:15 MCV 81.4 fl (81-99) 01/30/22 19:15 MCH 26.1 pg (28.0-34.0) L 01/30/22 19:15 MCHC 32.1 g/dL (30.0-36.0) 01/30/22 19:15 RDW 14.5 % (12.1-15.1) 01/30/22 19:15 Plt Count 236 10^3/cmm (130-400) 01/30/22 19:15 MPV 9.6 fL (7.4-10.4) 01/30/22 19:15 Neut % (Auto) 80.9 % 01/30/22 19:15 Lymph % (Auto) 11.4 % 01/30/22 19:15 Barron % (Auto) 7.1 % 01/30/22 19:15 Eos % (Auto) 0.0 % 01/30/22 19:15 Baso % (Auto) 0.2 % 01/30/22 19:15 Neut # (Auto) 10.58 10^3/uL (1.8-7.7) H 01/30/22 19:15 Lymph # (Auto) 1.5 10^3/uL (0.8-4.8) 01/30/22 19:15 Barron # (Auto) 0.9 10^3/uL (0.2-0.9) 01/30/22 19:15 Eos # (Auto) 0.0 10^3/uL (0.0-0.8) 01/30/22 19:15 Baso # (Auto) 0.0 10^3/uL (0.0-0.1) 01/30/22 19:15 Nucleated RBC % (auto) 0 % 01/30/22 19:15 Nucleated RBCs # 0.0 /100WBC 01/30/22 19:15 Sodium 138 mmol/L (136-145) 01/30/22 19:15 Potassium 3.8 mmol/L (3.5-5.1) 01/30/22 19:15 Chloride 98 mmol/L (98-107) 01/30/22 19:15 Carbon Dioxide 23 mmol/L (22-29) 01/30/22 19:15 Anion Gap 20.8 (5-19) H 01/30/22 19:15 BUN 13 mg/dL (6-20) 01/30/22 19:15 Creatinine 0.6 mg/dL (0.5-0.9) 01/30/22 19:15 GFR Calculation 108.1 mL/min (90-130) 01/30/22 19:15 Glucose 91 mg/dL (65-115) 01/30/22 19:15 Calculated Osmolality 286 mOsm/kg (285-295) 01/30/22 19:15 Calcium 9.1 mg/dL (8.5-10.5) 01/30/22 19:15 Total Bilirubin 0.3 mg/dL (0.15-1.2) 01/30/22 19:15 AST 18 U/L (0-32) 01/30/22 19:15 ALT 16 U/L (0-33) 01/30/22 19:15 Alkaline Phosphatase 100 IU/L (35-105) 01/30/22 19:15 Total Protein 8.4 g/dL (6.6-8.7) 01/30/22 19:15 Albumin 4.4 g/dL (3.5-5.2) 01/30/22 19:15 Globulin 4.0 g/dL (1.3-4.6) 01/30/22 19:15 Lipase 40 U/L (13-60) 01/30/22 19:15 Discharge Plan Discharge Patient Disposition: Home Clinical Impression: Vomiting Condition: Stable Prescriptions: New Reglan 10 mg tablet 10 mg PO Q6H PRN (Reason: nausea and vomiting) Qty: 20 0RF No Action magnesium oxide 400 mg magnesium tablet 400 mg PO DAILY 0RF Eliquis 2.5 mg tablet See Rx Instructions .ROUTE .COMPLEX Qty: 60 5RF Dose Instruction: TAKE ONE TABLET BY MOUTH TWICE A DAY FOR 30 DAYS Rx Instructions: TAKE ONE TABLET BY MOUTH TWICE A DAY FOR 30 DAYS metoprolol succinate 25 mg tablet extended release 24 hr 25 mg PO DAILY 90 Days Qty: 90 1RF potassium gluconate 595 mg (99 mg) tablet 595 mg PO DAILY 0RF ondansetron HCl [Zofran] 4 mg tablet 4 mg PO Q8H PRN (Reason: nausea and vomiting) Qty: 30 5RF benzonatate [Tessalon Perles] 100 mg capsule 100 mg PO TID PRN (Reason: cough) 0RF Label Comments: pt no longer taking cetirizine 10 mg tablet 10 mg PO .at bedtime 0RF Label Comments: pt not taking doxycycline hyclate 100 mg tablet 100 mg PO BID 0RF Label Comments: pt not taking fluticasone propionate 50 mcg/actuation spray,suspension 1 spray intranasal Q12H 0RF Label Comments: pt not taking Rx Instructions: administer into each nostril prednisone 10 mg tablet 30 mg PO DAILY 0RF Label Comments: pt not taking promethazine-DM 6.25-15 mg/5 mL syrup 5 ml PO Q6H PRN (Reason: cough) 0RF Label Comments: pt not taking alprazolam 0.5 mg tablet 0.5 mg PO TID PRN (Reason: anxiety) 30 Days Qty: 90 3RF dexamethasone 2 mg tablet 6 mg PO DAILY 5 Days Qty: 15 0RF oseltamivir [Tamiflu] 75 mg capsule 75 mg PO BID 5 Days Qty: 10 0RF albuterol sulfate 90 mcg/actuation HFA aerosol inhaler 2 puff inhalation Q6H PRN (Reason: shortness of breath or wheezing) Qty: 8.5 0RF morjbcmzmmavtlu-bjolnsghm-HI [Bromfed DM] 2-30-10 mg/5 mL syrup 7.5 ml PO Q6H PRN (Reason: cold symptoms) Qty: 160 0RF ondansetron 4 mg tablet,disintegrating 4 mg PO Q6H PRN (Reason: nausea and vomiting) Qty: 12 0RF Rx Instructions: 340b please memantine 10 mg tablet See Rx Instructions .ROUTE .COMPLEX Qty: 60 0RF Dose Instruction: TAKE ONE TABLET BY MOUTH TWICE A DAY Rx Instructions: TAKE ONE TABLET BY MOUTH TWICE A DAY Emgality Syringe 120 mg/mL syringe 120 mg SUBCUT .monthly Qty: 1 3RF omeprazole 20 mg capsule,delayed release(DR/EC) See Rx Instructions .ROUTE .COMPLEX Qty: 90 0RF Dose Instruction: TAKE ONE CAPSULE BY MOUTH DAILY FOR 90 DAYS Rx Instructions: TAKE ONE CAPSULE BY MOUTH DAILY FOR 90 DAYS alprazolam [Xanax XR] 1 mg tablet extended release 24 hr 1 mg PO DAILY Qty: 30 3RF lurasidone 20 mg tablet 20 mg PO .qhs 30 Days Qty: 30 3RF Rx Instructions: must administer with food (at least 350 calories) Discharge Orders: Discharge ED (Routine); Ordered 01/30/22 Ordered By: Shoaib Contreras Referrals: Minal Sanders MD [Primary Care Provider] - Discharge Diet: Advance as tolerated Discharge Activity: Resume usual activity Patient Instructions: Acute Nausea and Vomiting (DC) Coding Level of Care Code ED Quarry Supervisor for Elpidio Fwd Exam Comprehensive
[2022-01-30 19:18] VITALS: BP 111/73; PULSE 91; RESP 14; O2SAT 94
[2022-01-30] MEDS: ondansetron 2 mg/ML SDV 2 mL 4 MG IVP ×2 (19:25→20:12)
[2022-01-30] MEDS: sodium chloride 0.9% 1,000 ML 999 ML IV (19:25)
[2022-01-30] MEDS: iohexol 350 mg/mL 100 mL Btl IV (19:25)
[2022-01-30 19:26] LABS: Basophils % 0.2 %; Hematocrit 40.2 % (37.0-47.0); Hemoglobin 12.9 g/dL (11.5-15.3); Lymphocytes # 1.5 10^3/uL (0.8-4.8); Lymphocytes % 11.4 %; Mean Corpuscular HGB Conc 32.1 g/dL (30.0-36.0); Mean Corpuscular Hemoglobin 26.1 pg (28.0-34.0); Mean Corpuscular Volume 81.4 fl (81-99); Mean Platelet Volume 9.6 fL (7.4-10.4); Monocytes # 0.9 10^3/uL (0.2-0.9); Monocytes % 7.1 %; Neutrophils # 10.58 10^3/uL (1.8-7.7); Neutrophils % 80.9 %; Nucleated Red Blood Cells % 0 %; Platelet Count 236 10^3/cmm (130-400); Red Blood Count 4.94 10^6/uL (4.1-5.3); Red Cell Distribution Width 14.5 % (12.1-15.1); White Blood Count 13.1 10^3/uL (4.0-10.0)
[2022-01-30 19:46] VITALS: TEMP 37.4
[2022-01-30 19:52] LABS: Alanine Aminotransferase 16 U/L (0-33); Albumin Level 4.4 g/dL (3.5-5.2); Alkaline Phosphatase 100 IU/L (35-105); Anion Gap 20.8 (5-19); Aspartate Amino Transferase 18 U/L (0-32); Blood Urea Nitrogen 13 mg/dL (6-20); Calcium 9.1 mg/dL (8.5-10.5); Carbon Dioxide 23 mmol/L (22-29); Chloride 98 mmol/L (98-107); Glomerular Filtration Rate 108.1 mL/min (90-130); Glucose 91 mg/dL (65-115); Lipase 40 U/L (13-60); Osmolality Calculated 286 mOsm/kg (285-295); Potassium 3.8 mmol/L (3.5-5.1); Sodium 138 mmol/L (136-145); Total Bilirubin 0.3 mg/dL (0.15-1.2); Total Protein 8.4 g/dL (6.6-8.7)
[2022-01-30 20:17] VITALS: BP 125/72; RESP 16; O2SAT 97
[2022-01-30 20:29] VITALS: RESP 16; O2SAT 96
[2022-01-30] MEDS: morphine 4 mg/mL SDV 1 mL IVP (20:29)
[2022-01-30 20:52] VITALS: BP 130/74; PULSE 90; RESP 16; TEMP 37.2; O2SAT 96
== END 2022-01-30 20:35 | disposition home or self-care (01) ==
PROVIDERS: Emergency Provider Emergency Medicine; PCP Family Medicine
DX: R11.10 Vomiting, unspecified (principal); Z86.711 Personal history of pulmonary embolism; Z79.01 Long term (current) use of anticoagulants
CPT/HCPCS: 74177; 80053; 83690; 85025; 96361; 96374; 96375; 96376; 99284; J2270; J2405; J7030; Q9967

== ENCOUNTER 2022-06-08 18:15 | Emergency (ER) | payer MEDICARE, MEDICAID, SELFPAY ==
[2022-06-08 18:28] VITALS: BP 123/86; PULSE 63; RESP 16; TEMP 36.7; O2SAT 97; BMI 27.2
--- NOTE | 2022-06-08 19:28 | CTR_ITS ---
PROCEDURE INFORMATION: Exam: CT Head Without Contrast Exam date and time: 06/08/2022 7:41 PM Age: 46 years old Clinical indication: Pain; Headache; Additional info: Headache, right eyelid droop TECHNIQUE: Imaging protocol: Computed tomography of the head without contrast. Radiation optimization: All CT scans at this facility use at least one of these dose optimization techniques: automated exposure control; mA and/or kV adjustment per patient size (includes targeted exams where dose is matched to clinical indication); or iterative reconstruction. COMPARISON: CT head wo con* [id number] 07/10/2019 11:35 PM RADIATION DOSE METRICS: Total DLP (mGy-cm): 1071.9 FINDINGS: Brain: Normal. No hemorrhage. Unremarkable white matter. No mass effect. Cerebral ventricles: No ventriculomegaly. Paranasal sinuses: Visualized sinuses are unremarkable. No fluid levels. Mastoid air cells: Visualized mastoid air cells are well aerated. Bones/joints: Unremarkable. No acute fracture. Soft tissues: Unremarkable. CT/CT head wo con* [id number] IMPRESSION: No acute intracranial abnormality.
--- NOTE | 2022-06-08 19:43 | CTR_ITS ---
PROCEDURE INFORMATION: Exam: CT Cervical Spine Without Contrast Exam date and time: 06/08/2022 7:44 PM Age: 46 years old Clinical indication: Neck pain TECHNIQUE: Imaging protocol: Computed tomography of the cervical spine without contrast. Radiation optimization: All CT scans at this facility use at least one of these dose optimization techniques: automated exposure control; mA and/or kV adjustment per patient size (includes targeted exams where dose is matched to clinical indication); or iterative reconstruction. COMPARISON: CT cervical spin wo con* [id number] 10/17/2017 12:15 AM RADIATION DOSE METRICS: Total DLP (mGy-cm): 179.37 FINDINGS: Bones/joints: No acute fracture. Normal alignment. C2-C3: No significant disc protrusion. No severe spinal canal stenosis. No significant neural foraminal narrowing. C3-C4: No significant disc protrusion. No severe spinal canal stenosis. No significant neural foraminal narrowing. C4-C5: No significant disc protrusion. No severe spinal canal stenosis. No significant neural foraminal narrowing. C5-C6: No significant disc protrusion. No severe spinal canal stenosis. No significant neural foraminal narrowing. C6-C7: No significant disc protrusion. No severe spinal canal stenosis. No significant neural foraminal narrowing. C7-T1: No significant disc protrusion. No severe spinal canal stenosis. No significant neural foraminal narrowing. Lungs: Lung apices are normal. Soft tissues: Unremarkable. CT/CT cervical spin wo con* [id number] IMPRESSION: No acute findings.
--- NOTE | 2022-06-08 20:03 | ED_ITS ---
HPI - Headache General: Chief Complaint: Headache Stated Complaint: Left shoulder pain Time Seen by Provider: 06/08/22 18:45 Source: patient and family History of Present Illness: 46-year-old female with a history of migraine headache, chronic neck pain. She presents with headache and neck pain that has been worse in most of her headaches and neck pains. She says its been constant for about 4 days. She was seen at urgent care and [place] yesterday and again today. Evidently she was sent from [place] urgent care today, because her right eyelid was drooping and there was some concern over stroke regarding that. She denies any specific speech or language problems. She denies weakness. She has some blurry vision on and off which is not uncommon for her headaches. She denies fever. MD elicited complaint: headache and migraine Onset (ago): day(s) Onset description: gradually Location: frontal and temporal Severity: moderate Quality & Timing: throbbing Exacerbating factors: exertion and movement of head/neck Relieving factors: NSAIDs (Toradol yesterday helped transiently) and vomiting Context: occurred at rest Associated symptoms: Reports nausea and neck stiffness; Deny chest pain, confusion, cough, diaphoresis, eye pain, fever(s), photophobia, syncope, vomiting or weakness Treatments prior to arrival: other Review of Systems Const: Denies: fever(s) or diaphoresis ENMT: Denies: throat pain Card: Denies: chest pain or syncope Resp: Denies: dyspnea, productive cough or non-productive cough GI: Reports: nausea; Denies: vomiting Musc: Reports: neck pain Neuro: Reports: headache(s); Denies: numbness in extremities, weakness in extremities or confusion PFS ED PFSH: Medical History Anticoagulant long-term use Bipolar disorder, unspecified Chronic post-traumatic stress disorder Fibromyalgia CIRA (generalized anxiety disorder) Generalized anxiety disorder GERD (gastroesophageal reflux disease) History of pulmonary embolism Hx pulmonary embolism Migraine with aura, intractable, with status migrainosus MARIE (obstructive sleep apnea) Pneumothorax Pseudoseizure Psychiatric care PTSD (post-traumatic stress disorder) Worst headache of life Surgical History H/O bilateral salpingectomy H/O section H/O total hysterectomy H/O tubal ligation Family History Father Hypertension Diabetes Grandfather Diabetes Grandmother Diabetes Mother Heart disease Social History Smoking and tobacco status: never smoked Alcohol intake: current Alcohol intake frequency: holidays/special occasions only History of recent travel: No Current gender identity: Female Female Reproductive History: Date of last menstrual period: 10/13/20 Spontaneous abortions: No Physical Exam Const: COMMON NORMALS: patient oriented x3 GENERAL APPEARANCE: cooperative; not ill appearing and not frail appearing HENMT: COMMON NORMALS: normocephalic and atraumatic HEAD & SCALP: normocephalic and atraumatic FACE & SINUS: no Flattened naso-labial fold present, no ecchymosis and no erythema NOSE: Normal nares present Eye: COMMON NORMALS: Equal, round and reactive pupils present and EOMs intact bilaterally PUPIL: Yes Equal, round and reactive pupils present DIRECT OPHTHALMOSCOPY: No photophobia Neck/C-Spine: GENERAL: Yes normal visual inspection and Yes trachea midline CERVICAL SPINE: Yes cervical ROM abnormal and Yes Paracervical spasm Chest: CHEST: Yes Symmetrical chest wall rise Resp: COMMON NORMALS: normal respiratory effort, No use of accessory muscles and clear to auscultation bilaterally AUSCULTATION: clear to auscultation bilaterally Cardio: COMMON NORMALS: regular rate and regular rhythm RATE: regular rate RHYTHM: regular rhythm GI: COMMON NORMALS: Normal to inspection, nondistended, normoactive bowel sounds present, Soft to palpation and non-tender PALPATION: Yes Soft to palpation Extremity: COMMON NORMALS: no pedal edema Neuro: NATALI COMA SCALE: document GCS findings Natali coma scale eye opening: Spontaneous Natali coma scale verbal response: Orientated Natali coma scale motor response: Obey commands Natali coma scale total score: 15 COMMON NORMALS: patient oriented x3 CRANIAL NERVES: Yes CN normal except as noted COORDINATION/BALANCE: [id number] test normal and [id number]-[id number] test normal SPEECH: speech normal SENSORY EXAM: Yes extremities (intact) MOTOR EXAM: Pronator motor function not present and Motor fasciculations not present COORDINATION: [id number]-[id number] test normal and [id number]-[id number] test normal Psych: COMMON NORMALS: mental status grossly normal and cooperative Course Vital Signs: Vital signs: Vital Signs Temperature 98.1 F 06/08/22 18:28 Pulse Rate 63 06/08/22 18:28 Respiratory Rate 16 06/08/22 20:48 Blood Pressure 123/86 06/08/22 18:28 Pulse Oximetry 97 06/08/22 18:28 Oxygen Delivery Me thod 06/08/22 18:28 MDM - Headache Medical Decision Making IV placed by me. Ultrasound guidance had to be used. Patient is received 500 mL of fluid, and a migraine cocktail including dexamethasone, Toradol, Reglan, and fentanyl. She is feeling much improved. Her neck is no longer stiff. She remains afebrile. CBC is normal. BMP is essentially normal. With improvement in her symptoms, she will be allowed home. Head CT and C-spine CT are negative. She no longer has symptoms of diplopia or eyelid droop. She'll be discharged with improvement in symptoms. She konws to return if problems. Lab Data : 06/08/22 20:50 06/08/22 20:[address] 06/08/22 19:28 IMPRESSION: No acute intracranial abnormality. Cervical Spine CT 06/08/22 19:43 IMPRESSION: No acute findings. Laboratory Results WBC 6.2 10^3/uL (4.0-10.0) 06/08/22 20:50 RBC 4.58 10^6/uL (4.1-5.3) 06/08/22 20:50 Hgb 12.3 g/dL (11.5-15.3) 06/08/22 20:50 Hct 38.2 % (37.0-47.0) 06/08/22 20:50 MCV 83.4 fl (81-99) 06/08/22 20:50 MCH 26.9 pg (28.0-34.0) L 06/08/22 20:50 MCHC 32.2 g/dL (30.0-36.0) 06/08/22 20:50 RDW 13.3 % (12.1-15.1) 06/08/22 20:50 Plt Count 245 10^3/cmm (130-400) 06/08/22 20:50 MPV 9.3 fL (7.4-10.4) 06/08/22 20:50 Neut % (Auto) 52.2 % 06/08/22 20:50 Lymph % (Auto) 37.9 % 06/08/22 20:50 Mccreary % (Auto) 8.0 % 06/08/22 20:50 Eos % (Auto) 1.1 % 06/08/22 20:50 Baso % (Auto) 0.6 % 06/08/22 20:50 Neut # (Auto) 3.24 10^3/uL (1.8-7.7) 06/08/22 20:50 Lymph # (Auto) 2.4 10^3/uL (0.8-4.8) 06/08/22 20:50 Mccreary # (Auto) 0.5 10^3/uL (0.2-0.9) 06/08/22 20:50 Eos # (Auto) 0.1 10^3/uL (0.0-0.8) 06/08/22 20:50 Baso # (Auto) 0.0 10^3/uL (0.0-0.1) 06/08/22 20:50 Nucleated RBC % (auto) 0 % 06/08/22 20:50 Nucleated RBCs # 0.0 /100WBC 06/08/22 20:50 Sodium 140 mmol/L (136-145) 06/08/22 20:50 Potassium 4.1 mmol/L (3.5-5.1) 06/08/22 20:50 Chloride 104 mmol/L (98-107) 06/08/22 20:50 Carbon Dioxide 24 mmol/L (22-29) 06/08/22 20:50 Anion Gap 16.1 (5-19) 06/08/22 20:50 BUN 10 mg/dL (6-20) 06/08/22 20:50 Creatinine 0.6 mg/dL (0.5-0.9) 06/08/22 20:50 GFR Calculation 108.1 mL/min (90-130) 06/08/22 20:50 Glucose 82 mg/dL (65-115) 06/08/22 20:50 Calculated Osmolality 288 mOsm/kg (285-295) 06/08/22 20:50 Calcium 9.2 mg/dL (8.5-10.5) 06/08/22 20:50 Total Bilirubin 0.2 mg/dL (0.15-1.2) 06/08/22 20:50 AST 15 U/L (0-32) 06/08/22 20:50 ALT < 5 U/L (0-33) 06/08/22 20:50 Alkaline Phosphatase 94 U/L (35-105) 06/08/22 20:50 Total Protein 7.2 g/dL (6.6-8.7) 06/08/22 20:50 Albumin 4.3 g/dL (3.5-5.2) 06/08/22 20:50 Globulin 2.9 g/dL (1.3-4.6) 06/08/22 20:50 Discharge Plan Discharge Patient Disposition: Home Clinical Impression: Migraine Condition: Stable Prescriptions: No Action magnesium oxide 400 mg magnesium tablet 400 mg PO DAILY potassium gluconate 595 mg (99 mg) tablet 595 mg PO DAILY ondansetron HCl [Zofran] 4 mg tablet 4 mg PO Q8H PRN (Reason: nausea and vomiting) Qty: 30 5RF PROVITA SUPPLEMENT PO DAILY alprazolam 0.5 mg tablet 0.5 mg PO TID PRN (Reason: anxiety) 30 Days Qty: 90 3RF alprazolam [Xanax XR] 1 mg tablet extended release 24 hr 1 mg PO DAILY Qty: 30 3RF metoprolol succinate 25 mg tablet extended release 24 hr 25 mg PO DAILY 90 Days Qty: 90 2RF cetirizine 10 mg tablet 10 mg PO DAILY 90 Days Qty: 90 2RF Eliquis 2.5 mg tablet 2.5 mg PO BID 30 Days Qty: 60 8RF omeprazole 20 mg capsule,delayed release(DR/EC) 20 mg PO DAILY 90 Days Qty: 90 2RF Provitalize PO valacyclovir 500 mg tablet 500 mg PO Q12H 3 Days Qty: 6 5RF Rx Instructions: start within 24 hours of symptom onset methocarbamol 750 mg tablet 750 mg PO TID 5 Days Qty: 15 0RF ondansetron 4 mg tablet,disintegrating 4 mg PO Q6H PRN (Reason: nausea and vomiting) Qty: 12 0RF Rx Instructions: 340b please fluticasone propionate 50 mcg/actuation spray,suspension 1 spray intranasal Q12H Label Comments: pt not taking Rx Instructions: administer into each nostril Emgality Syringe 120 mg/mL syringe 120 mg SUBCUT .monthly Qty: 1 3RF memantine 10 mg tablet See Rx Instructions .ROUTE .COMPLEX Qty: 60 0RF Dose Instruction: TAKE ONE TABLET BY MOUTH TWICE A DAY Rx Instructions: TAKE ONE TABLET BY MOUTH TWICE A DAY Discharge Orders: Discharge ED (Routine); Ordered 06/08/22 Ordered By: Mendoza Rose Referrals: Minal Sanders MD [Primary Care Provider] - 1-3 days Discharge Diet: Advance as tolerated Discharge Activity: Increase activity as tolerated Patient Instructions: Acute Headache (ED), Opioid Safety Activity Restrictions/Additional Instructions: Return for fever, return or worsening neck stiffness, neurological changes such as problems with language, speech, vision, weakness, etc. Coding Level of Care Code ED Construction Lineman for Chg Fwd Exam Comprehensive
[2022-06-08 20:48] VITALS: RESP 16
[2022-06-08] MEDS: fentaNYL 50 mcg/mL INJ 2mL 75 MCG IVP (20:48)
[2022-06-08] MEDS: dexamethasone 4 mg/mL INJ 8 MG IVP (20:49)
[2022-06-08] MEDS: ketorolac 30 mg/mL INJ IVP (20:49)
[2022-06-08] MEDS: sodium chloride 0.9% 500 ML IV (20:50)
[2022-06-08] MEDS: metoclopramide 5 mg/mL SDV 2 mL 10 MG IVP (20:50)
[2022-06-08 20:56] LABS: Basophils % 0.6 %; Eosinophils # 0.1 10^3/uL (0.0-0.8); Eosinophils % 1.1 %; Hematocrit 38.2 % (37.0-47.0); Hemoglobin 12.3 g/dL (11.5-15.3); Lymphocytes # 2.4 10^3/uL (0.8-4.8); Lymphocytes % 37.9 %; Mean Corpuscular HGB Conc 32.2 g/dL (30.0-36.0); Mean Corpuscular Hemoglobin 26.9 pg (28.0-34.0); Mean Corpuscular Volume 83.4 fl (81-99); Mean Platelet Volume 9.3 fL (7.4-10.4); Monocytes # 0.5 10^3/uL (0.2-0.9); Neutrophils # 3.24 10^3/uL (1.8-7.7); Neutrophils % 52.2 %; Nucleated Red Blood Cells % 0 %; Platelet Count 245 10^3/cmm (130-400); Red Blood Count 4.58 10^6/uL (4.1-5.3); Red Cell Distribution Width 13.3 % (12.1-15.1); White Blood Count 6.2 10^3/uL (4.0-10.0)
[2022-06-08 21:13] LABS: Alanine Aminotransferase < 5 U/L (0-33); Albumin Level 4.3 g/dL (3.5-5.2); Alkaline Phosphatase 94 U/L (35-105); Blood Urea Nitrogen 10 mg/dL (6-20); Calcium 9.2 mg/dL (8.5-10.5); Carbon Dioxide 24 mmol/L (22-29); Chloride 104 mmol/L (98-107); Globulin 2.9 g/dL (1.3-4.6); Glomerular Filtration Rate 108.1 mL/min (90-130); Glucose 82 mg/dL (65-115); Osmolality Calculated 288 mOsm/kg (285-295); Sodium 140 mmol/L (136-145); Total Bilirubin 0.2 mg/dL (0.15-1.2); Total Protein 7.2 g/dL (6.6-8.7)
[2022-06-08 22:08] LABS: Anion Gap 16.1 (5-19); Aspartate Amino Transferase 15 U/L (0-32); Potassium 4.1 mmol/L (3.5-5.1)
== END 2022-06-08 22:04 | disposition home or self-care (01) ==
PROVIDERS: Emergency Provider Emergency Medicine; PCP Family Medicine
DX: G43.909 Migraine, unspecified, not intractable, without status migrainosus (principal); Z79.01 Long term (current) use of anticoagulants; Z86.711 Personal history of pulmonary embolism
CPT/HCPCS: 70450; 72125; 80053; 85025; 96374; 96375; 99285; J1100; J1885; J2765; J3010; J7040

== ENCOUNTER 2022-06-19 11:27 | Outpatient (CLI) | payer MEDICARE, MEDICAID, SELFPAY ==
--- NOTE | 2022-06-19 11:41 | MM_ITS ---
WS: [id number] BILATERAL SCREENING DIGITAL TOMOSYNTHESIS MAMMOGRAM WITH CAD HISTORY: SCREENING COMPARISON: 07/12/2021 and 04/26/2020 Bilateral CC and MLO views with tomosynthesis and synthetic mammography submitted. Computer aided det ection analyzed. Breast composition: The breasts are heterogeneously dense, which may obscure small masses. No suspici ous masses, microcalcifications or architectural distortion. Well-circumscribed mass in the upper out er quadrant RIGHT breast near 10:00 measures 19 x 17 mm. Decreased in size since 2019. No new mass. N o suspicious calcifications. MM/[place] [id number] IMPRESSION: BI-RADS: 2-Benign FOLLOW UP: 1 Year Follow-up
== END 2022-06-19 11:28 | disposition home or self-care (01) ==
LOC: RAD 11:27
PROVIDERS: PCP Family Medicine; Visit Provider Family Medicine
DX: Z12.31 Encounter for screening mammogram for malignant neoplasm of breast (principal)
CPT/HCPCS: 77063; 77067

== ENCOUNTER → 2022-06-25 09:55 | Outpatient (BNVA) | payer MEDICARE, MEDICAID, SELFPAY | PROVIDERS: PCP Family Medicine; Visit Provider Specialist | DX: M54.81 Occipital neuralgia (principal) | CPT/HCPCS: 64405; 64450; 99213 ==

== ENCOUNTER → 2022-07-29 13:39 | Outpatient (BNVA) | payer MEDICARE, MEDICAID, SELFPAY | PROVIDERS: PCP Family Medicine; Visit Provider Nurse Practitioner Family | DX: R68.89 Other general symptoms and signs (principal); J10.1 Influenza due to other identified influenza virus with other respiratory manifestations | CPT/HCPCS: 87400; 87426 ==

== ENCOUNTER 2022-07-31 17:34 | Emergency (ER) | payer MEDICARE, MEDICAID, SELFPAY ==
[2022-07-31 17:59] VITALS: BP 106/73; PULSE 92; RESP 15; TEMP 37.3; O2SAT 95; BMI 26.5
--- NOTE | 2022-07-31 19:10 | CTR_ITS ---
PROCEDURE INFORMATION: Exam: CTA Chest With Contrast Exam date and time: 07/31/2022 7:25 PM Age: 47 years old Clinical indication: Cough and shortness of breath; Additional info: SOB HX of pe TECHNIQUE: Imaging protocol: Computed tomographic angiography of the chest with contrast. 3D rendering (Not supervised by radiologist): MIP and/or 3D reconstructed images were created by the technologist. Radiation optimization: All CT scans at this facility use at least one of these dose optimization techniques: automated exposure control; mA and/or kV adjustment per patient size (includes targeted exams where dose is matched to clinical indication); or iterative reconstruction. Contrast material: OMNIPAQUE 350; Contrast volume: 95 ml; Contrast route: INTRAVENOUS (IV); COMPARISON: CT angio chest PE protcl [id number] 06/09/2018 12:44 PM RADIATION DOSE METRICS: Total DLP (mGy-cm): 280.65 FINDINGS: Pulmonary arteries: No evidence of pulmonary embolism to the subsegmental level. Aorta: Unremarkable. No aortic aneurysm. No aortic dissection. Lungs: Lungs symmetrically expanded. No consolidation. Central airways normal in caliber and patent. Pleural spaces: Unremarkable. No pneumothorax. No pleural effusion. Heart: No cardiomegaly. No coronary artery calcification. No significant pericardial effusion. Mediastinal space: Small residual thymic tissue again noted. Lymph nodes: Unremarkable. No enlarged lymph nodes. Bones/joints: No acute or aggressive osseous lesion. Soft tissues: Incidental note of rounded 1.9 cm structure within the right breast measuring 35 Hounsfield units on image 225 series 7 versus 3.6 cm on the June 09, 2018 CT. By report this was previously characterized as a cyst. CT/CT angio chest PE protcl [id number] IMPRESSION: 1. No evidence of pulmonary embolism or other acute abnormality. 2. Chronic and incidental findings as described.
[2022-07-31] MEDS: sodium chloride 0.9% 1,000 ML 999 ML IV (19:13)
[2022-07-31] MEDS: ondansetron 2 mg/ML SDV 2 mL 4 MG IVP (19:16)
[2022-07-31] MEDS: iohexol 350 mg/mL 100 mL Btl IV (19:23)
[2022-07-31 19:26] LABS: Basophils # 0.1 10^3/uL (0.0-0.1); Basophils % 0.9 %; Eosinophils % 0.4 %; Hematocrit 45.2 % (37.0-47.0); Hemoglobin 14.9 g/dL (11.5-15.3); Lymphocytes # 1.2 10^3/uL (0.8-4.8); Lymphocytes % 22.1 %; Mean Corpuscular Hemoglobin 27.4 pg (28.0-34.0); Mean Corpuscular Volume 83.2 fl (81-99); Mean Platelet Volume 9.1 fL (7.4-10.4); Monocytes # 0.5 10^3/uL (0.2-0.9); Monocytes % 9.8 %; Neutrophils # 3.58 10^3/uL (1.8-7.7); Neutrophils % 66.4 %; Nucleated Red Blood Cells % 0 %; Platelet Count 250 10^3/cmm (130-400); Red Blood Count 5.43 10^6/uL (4.1-5.3); Red Cell Distribution Width 13.2 % (12.1-15.1); White Blood Count 5.4 10^3/uL (4.0-10.0)
[2022-07-31 19:47] LABS: Alanine Aminotransferase 12 U/L (0-33); Albumin Level 4.6 g/dL (3.5-5.2); Alkaline Phosphatase 120 U/L (35-105); Aspartate Amino Transferase 13 U/L (0-32); Blood Urea Nitrogen 9 mg/dL (6-20); Calcium 10.2 mg/dL (8.5-10.5); Carbon Dioxide 26 mmol/L (22-29); Chloride 97 mmol/L (98-107); Globulin 4.4 g/dL (1.3-4.6); Glomerular Filtration Rate 90.1 mL/min (90-130); Glucose 93 mg/dL (65-115); Osmolality Calculated 282 mOsm/kg (285-295); Sodium 137 mmol/L (136-145); Total Bilirubin 0.4 mg/dL (0.15-1.2)
--- NOTE | 2022-07-31 20:40 | ED_ITS ---
HPI - Weakness General: Chief complaint: Weakness Stated complaint: n/v Time Seen by Provider: 07/31/22 18:55 History of Present Illness: 47 yo female patient presents to ER with worsening weakness and body aches. Pt was diagnosed with flu on friday and states she feels worse. states she has been weak and acted like she may have passed out earlier today. Pt denies any chest pain does c/o SOB. Pt c/o fever nedoes any neck pain. Pt c/o n/v. pt states she takes blood thinners due tohx of bilateral PE and has not ivette able to kep her meds down Associated symptoms: Denies chest pain, confusion, diaphoresis, dysuria, easy bruising or syncope Review of Systems Const: Denies: change in appetite, change in weight or diaphoresis Eyes: Denies: change in vision, blurry vision, blind spots, photophobia, eye discomfort, eye discharge, eye redness, floaters or seeing flashes ENMT: Denies: throat pain, uvular edema, enlarged tonsils, odynophagia, hoarseness, mouth pain, swelling of lips/tongue, oral sores, bleeding gums, dental pain, dry mouth, ear or mastoid pain, ear discharge, change in hearing, tinnitus, disequilibrium, nasal discharge, nasal congestion, post nasal drip or sinus pain Card: Denies: chest pain, palpitations, irregular heart rhythm, edema, swelling of feet/ankles, lightheadedness, syncope, pre-syncope, dyspnea on exertion, orthopnea, leg pain with exertion or acrocyanosis Resp: Denies: dyspnea, productive cough, non-productive cough, wheezing, stridor, pain on inspiration, change in phlegm color, hemoptysis or chest congestion GI: Denies: abdominal pain, hematemesis, dysphagia, diarrhea, constipation, GI cramping, change in bowel habits or rectal pain : Denies: flank pain, difficulty voiding, dysuria, urinary frequency, urinary urgency, urinary hesitancy or hematuria Musc: Denies: neck pain, back pain, extremity pain, extremity swelling, joint pain, joint swelling, joint redness, joint warmth or deformity Skin/Breast: Denies: rash, pruritus, erythema, sores, new lesions, changes in skin color or dry skin Neuro: Denies: numbness in extremities, weakness in extremities, sensory changes, lack of coordination, difficulty walking, frequent falls, dizziness, vertigo, confusion, behavioral changes, Slurred speech present, difficulty communicating thoughts or seizure-like activity Psych: Denies: anxiety, depression, suicidal ideation or homicidal ideation Endo: Denies: polyuria, polydipsia, tired all the time, cold intolerance, excessive sweating, flushing, hot flashes or heat intolerance David/Lymph: Denies: easy bruising, easy bleeding, petechiae, purpura, enlarged lymph nodes or tender lymph nodes All/Imm: Denies: urticaria, throat swelling, tongue swelling, facial swelling, acute wheezing or itchy eyes PFSH ED PFSH: Medical History Anticoagulant long-term use Bipolar disorder, unspecified Chronic post-traumatic stress disorder Fibromyalgia CIRA (generalized anxiety disorder) Generalized anxiety disorder GERD (gastroesophageal reflux disease) History of pulmonary embolism Hx pulmonary embolism Migraine with aura, intractable, with status migrainosus MARIE (obstructive sleep apnea) Pneumothorax Pseudoseizure Psychiatric care PTSD (post-traumatic stress disorder) Worst headache of life Surgical History H/O bilateral salpingectomy H/O section H/O total hysterectomy H/O tubal ligation Family History Father Hypertension Diabetes Grandfather Diabetes Grandmother Diabetes Mother Heart disease Social History Smoking and tobacco status: never smoked Alcohol intake: current Alcohol intake frequency: holidays/special occasions only History of recent travel: No Current gender identity: Female Female Reproductive History: Date of last menstrual period: 10/13/20 Spontaneous abortions: No Physical Exam Const: COMMON NORMALS: no acute distress, patient oriented x3, healthy appearing, alert and well nourished GENERAL APPEARANCE: cooperative, comfortable, well kempt and well developed; not ill appearing ORIENTATION/CONSCIOUSNESS: Yes awake, Yes oriented to person, Yes oriented to place and Yes oriented to time HENMT: COMMON NORMALS: normocephalic, atraumatic, hearing grossly normal bilaterally, external ears normal, EAC's normal, TM's normal bilaterally, Normal external nose present, Normal nasal mucous membranes and turbinates present and moist oral mucous membranes HEAD & SCALP: normal to inspection, normocephalic and atraumatic FACE & SINUS: normal facial exam, sinuses nontender and face symmetric NOSE: Normal external nose present, Normal nares present, Normal nasal mucous membranes and turbinates present, No nasal discharge present and Abnormal external nose present EXTERNAL EAR: Yes external ears normal and Yes mastoids normal EXTERNAL AUDITORY CANAL: EAC's normal TYMPANIC MEMBRANE: TM's normal bilaterally MOUTH: Normal oral and palatal mucosa present, lip normal, tongue normal and Normal salivary glands and ducts present THROAT: no uvular edema Eye: COMMON NORMALS: Equal, round and reactive pupils present, EOMs intact bilaterally, conjunctivae normal, no scleral icterus and no papilledema GENERAL EYE: appearance normal, both eyes and all related structures EYELID: eyelids normal CONJUNCTIVA: Yes conjunctivae normal SCLERA: sclerae normal CORNEA: Yes corneas normal PUPIL: Yes Equal, round and reactive pupils present DIRECT OPHTHALMOSCOPY: Yes no papilledema Neck/C-Spine: COMMON NORMALS: full ROM, no lymphadenopathy, supple, no meningeal signs, no JVD and Thyroid normal GENERAL: Yes normal visual i nspection and Yes trachea midline THYROID: Thyroid normal CERVICAL SPINE: Yes cervical ROM normal Lymph: LYMPHATIC: no lymphadenopathy noted and no lymphedema noted Chest: COMMONS NORMALS: normal inspection of the chest and normal palpation of entire chest wall Resp: COMMON NORMALS: normal respiratory effort, No retractions, No use of accessory muscles and clear to auscultation bilaterally EFFORT & INSPECTION: Yes able to speak in complete sentences and Yes symmetric chest movement AUSCULTATION: clear to auscultation bilaterally Cardio: COMMON NORMALS: no JVD, regular rate and regular rhythm RATE: regular rate RHYTHM: regular rhythm GI: COMMON NORMALS: Normal to inspection, nondistended, normoactive bowel sounds present, Soft to palpation, non-tender, No hepatosplenomegaly present, no masses and no bruits INSPECTION: Yes normal to inspection AUSCULTATION: Yes normoactive bowel sounds PALPATION: Yes Soft to palpation and Yes No hepatosplenomegaly present PERCUSSION: normal to percussion RECTAL EXAM: deferred Back/Pelvis: COMMON NORMALS: thoracic and lumbar spine normal to inspection, no thoracic nor lumbar tenderness, thoraco-lumbar ROM normal and straight leg r aise negative bilaterally THORACIC SPINE/UPPER BACK: Yes normal to inspection LUMBAR SPINE/LOWER BACK: Yes normal to inspection Extremity: COMMON NORMALS: normal to inspection, full ROM and capillary refill normal GENERAL: Yes normal exam except as noted Neuro: COMMON NORMALS: patient oriented x3, CN's II-XII intact bilaterally, moves all extremities, no focal motor deficits, no sensory deficits noted and ga it normal SENSORIUM/ORIENTATION: Yes alert, Yes oriented to person, Yes o riented to place and Yes oriented to time MENINGEAL SIGNS: Yes no meningeal signs CRANIAL NERVES: Yes CN normal except as noted SPEECH: speech normal GAIT: Yes Normal gait present SENSORY EXAM: Yes extremities MOTOR EXAM: 5/5 motor strength present throughout Psych: COMMON NORMALS: mental status grossly normal, Normal thought process present, cooperative, normal affect, speech normal, activity/motor behavior normal, denies hallucinations, denies homicidal ideation and denies suicidal ideation APPEARANCE: Yes grossly normal and Yes well kempt ATTITUDE: Yes calm ACTIVITY/MOTOR BEHAVIOR: Yes appropriate eye contact SPEECH: Yes normal speech THOUGHT PROCESS: Normal thought process present THOUGHT CONTENT: Yes Normal thought content present ATTENTION/CONCENTRATION: Yes attention grossly intact MEMORY/COGNITION: Yes memory grossly intact INSIGHT: Good insight present (Psych) JUDGEMENT: Good judgement present (Psych) Skin: COMMON NORMALS: no rashes or lesions noted, no wounds, turgor normal, no jaundice, no petechiae and no mottling GENERAL SKIN EXAM: no rashes or lesions noted and turgor normal Course Vital Signs: Vital signs: Vital Signs Temperature 99.1 F 07/31/22 17:59 Pulse Rate 92 07/31/22 17:59 Respiratory Rate 15 07/31/22 17:59 Blood Pressure 106/73 07/31/22 17:59 Pulse Oximetry 95 07/31/22 17:59 Oxygen Delivery Me thod 07/31/22 17:59 MDM - Weakness Medical Decision Making Patient is well appearing non toxic and in no acute distress. Given patient inability to gkep anticoagulants down secondary to vomitting and hx of PEs as we ll as tachycardia today, I did order CT PE protocol which was negative for any acute fingsin. Pt was given antimetics and normal saline 1 liter and did have improvement. Pts labs reveal no concerns but UA was nitrate positive. I did give patient Rocephin one gram while here and will send her home with antibiotics for uti. Lab Data : 07/31/22 19:08 07/31/22 19:08 Radiology Impressions Chest CTA 07/31/22 19:10 IMPRESSION: 1. No evidence of pulmonary embolism or other acute abnormality. 2. Chronic and incidental findings as described. Laboratory Results WBC 5.4 10^3/uL (4.0-10.0) 07/31/22 19:08 RBC 5.43 10^6/uL (4.1-5.3) H 07/31/22 19:08 Hgb 14.9 g/dL (11.5-15.3) 07/31/22 19:08 Hct 45.2 % (37.0-47.0) 07/31/22 19:08 MCV 83.2 fl (81-99) 07/31/22 19:08 MCH 27.4 pg (28.0-34.0) L 07/31/22 19: MCHC 33.0 g/dL (30.0-36.0) 07/31/22 19: RDW 13.2 % (12.1-15.1) 07/31/22 19:08 Plt Count 250 10^3/cmm (130-400) 07/31/22 19:08 MPV 9.1 fL (7.4-10.4) 07/31/22 19:08 Neut % (Auto) 66.4 % 07/31/22 19:08 Lymph % (Auto) 22.1 % 07/31/22:08 Bacon % (Auto) 9.8 % 07/31/22:08 Eos % (Auto) 0.4 % 07/31/22:08 Baso % (Auto) 0.9 % 07/31/22 19:08 Neut # (Auto) 3.58 10^3/uL (1.8-7.7) 07/31/22 19:08 Lymph # (Auto) 1.2 10^3/uL (0.8-4.8) 07/31/22 19:08 Bacon # (Auto) 0.5 10^3/uL (0.2-0.9) 07/31/22 19:08 Eos # (Auto) 0.0 10^3/uL (0.0-0.8) 07/31/22 19:08 Baso # (Auto) 0.1 10^3/uL (0.0-0.1) 07/31/22 19:08 Nucleated RBC % (auto) 0 % 07/31/22 19:08 Nucleated RBCs # 0.0 /100WBC 07/31/22 19:08 Sodium 137 mmol/L (136-145) 07/31/22 19:08 Potassium 4.0 mmol/L (3.5-5.1) 07/31/22 19:08 Chloride 97 mmol/L (98-107) L 07/31/22 19:08 Carbon Dioxide 26 mmol/L (22-29) 07/31/22 19:08 Anion Gap 18.0 (5-19) 07/31/22 19:08 BUN 9 mg/dL (6-20) 07/31/22 19:08 Creatinine 0.7 mg/dL (0.5-0.9) 07/31/22 19:08 GFR Calculation 90.1 mL/min (90-130) 07/31/22 19:08 Glucose 93 mg/dL (65-115) 07/31/22 19:08 Calculated Osmolality 282 mOsm/kg (285-295) L 07/31/22 19:08 Calcium 10.2 mg/dL (8.5-10.5) 07/31/22 19:08 Total Bilirubin 0.4 mg/dL (0.15-1.2) 07/31/22 19:08 AST 13 U/L (0-32) 07/31/22 19:08 ALT 12 U/L (0-33) 07/31/22 19:08 Alkaline Phosphatase 120 U/L (35-105) H 07/31/22 19:08 Total Protein 9.0 g/dL (6.6-8.7) H 07/31/22 19:08 Albumin 4.6 g/dL (3.5-5.2) 07/31/22 19:08 Globulin 4.4 g/dL (1.3-4.6) 07/31/22 19:08 Urine Color Light yellow (Yellow) 07/31/22 20:55 Urine Appearance Clear (CLEAR) 07/31/22 20:55 Urine pH 7 (5-7) 07/31/22 20:55 Ur Specific Ross 1.005 (1.005-1.030) 07/31/22 20:55 Urine Protein 1+ (Negative) H 07/31/22 20:55 Urine Glucose (UA) Norm (Normal) 07/31/22 20:55 Urine Ketones 2+ (Negative) H 07/31/22 20:55 Urine Blood 2+ (Negative) H 07/31/22 20:55 Urine Nitrate Positive (Negative) H 07/31/22 20:55 Urine Bilirubin Neg (Negative) 07/31/22 20:55 Urine Urobilinogen Norm mg/dL (Negative) 07/31/22 20:55 Ur Leukocyte Esterase 2+ (Negative) H 07/31/22 20:55 Urine RBC 5-10 /hpf (0-2) H 07/31/22 20:55 Urine WBC 15-25 /hpf (0-5) H 07/31/22 20:55 Ur Squamous Epith Cells 0-4 /hpf (0-5) H 07/31/22 20:55 Amorphous Sediment Not Reportable 07/31/22 20:55 Urine Bacteria 1+ /hpf (NONE) H 07/31/22 20:55 Discharge Plan Discharge Patient Disposition: Home Clinical Impression: UTI (urinary tract infection) Condition: Stable Prescriptions: New cephalexin 500 mg capsule 500 mg PO Q8H 5 Days Qty: 15 0RF No Action magnesium oxide 400 mg magnesium tablet 400 mg PO DAILY potassium gluconate 595 mg (99 mg) tablet 595 mg PO DAILY ondansetron HCl [Zofran] 4 mg tablet 4 mg PO Q8H PRN (Reason: nausea and vomiting) Qty: 30 5RF PROVITA SUPPLEMENT PO DAILY alprazolam 0.5 mg tablet 0.5 mg PO TID PRN (Reason: anxiety) 30 Days Qty: 90 3RF alprazolam [Xanax XR] 1 mg tablet extended release 24 hr 1 mg PO DAILY Qty: 30 3RF metoprolol succinate 25 mg tablet extended release 24 hr 25 mg PO DAILY 90 Days Qty: 90 2RF cetirizine 10 mg tablet 10 mg PO DAILY 90 Days Qty: 90 2RF Eliquis 2.5 mg tablet 2.5 mg PO BID 30 Days Qty: 60 8RF omeprazole 20 mg capsule,delayed release(DR/EC) 20 mg PO DAILY 90 Days Qty: 90 2RF Provitalize PO valacyclovir 500 mg tablet 500 mg PO Q12H 3 Days Qty: 6 5RF Rx Instructions: start within 24 hours of symptom onset methocarbamol 750 mg tablet 750 mg PO TID 5 Days Qty: 15 0RF ondansetron 4 mg tablet,disintegrating 4 mg PO Q6H PRN (Reason: nausea and vomiting) Qty: 12 0RF Rx Instructions: 340b please acetazolamide 125 mg tablet 125 mg PO DAILY Qty: 30 0RF oseltamivir [Tamiflu] 75 mg capsule 75 mg PO BID 5 Days Qty: 10 0RF fluticasone propionate 50 mcg/actuation spray,suspension 1 spray intranasal Q12H Label Comments: pt not taking Rx Instructions: administer into each nostril memantine 10 mg tablet See Rx Instructions .ROUTE .COMPLEX Qty: 60 0RF Dose Instruction: TAKE ONE TABLET BY MOUTH TWICE A DAY Rx Instructions: TAKE ONE TABLET BY MOUTH TWICE A DAY Emgality Syringe 120 mg/mL syringe See Rx Instructions .ROUTE .COMPLEX Qty: 1 3RF Dose Instruction: INJECT 120 MG SUB-Q MONTHLY FOR 3RD MONTH Rx Instructions: INJECT 120 MG SUB-Q MONTHLY FOR 3RD MONTH Discharge Orders: Discharge ED (Routine); Ordered 07/31/22 Ordered By: Zahraa Gregory Referrals: Minal Sanders MD [Primary Care Provider] - Discharge Diet: Advance as tolerated Discharge Activity: Increase activity as tolerated Patient Instructions: Opioid Safety, Pain Management Activity Restrictions/Additional Instructions: Continue to rest and stay hydrated Take your medications as prescribed Return to Er with any worsening of symptoms Coding Level of Care Code ED Human Resources Operations Coordinator for Elpidio Chung
[2022-07-31] MEDS: ketorolac 30 mg/mL INJ 15 MG IVP (20:54)
[2022-07-31] MEDS: prochlorperazine 10 mg/2 mL Inj IVP (21:22)
[2022-07-31 21:34] LABS: Urine Appearance Clear (CLEAR); Urine Color Light Yellow (Yellow)
[2022-07-31 21:35] LABS: Bilirubin Urine Neg (Negative); Blood Urine 2+ (Negative); Glucose Urine UA Norm (Normal); Ketones Urine 2+ (Negative); Nitrate Urine Positive (Negative); Protein Urine 1+ (Negative); Specific Gravity, Urine 1.005 (1.005-1.030); Urobilinogen Urine Norm (Negative); pH Urine 7 (5-7)
[2022-07-31 21:36] LABS: Add Urine Microscopic? YES; Leukocyte Esterase Urine 2+ (Negative)
[2022-07-31 21:44] LABS: Bacteria Urine 1+ /hpf; Squamous Epithelial Cell Urine 0-4 /hpf (0-5); WBC Urine 15-25 /hpf (0-5)
[2022-07-31 21:45] LABS: Add Urine Culture? Yes
[2022-07-31] MEDS: cefTRIAXone 1,000 MG in sodium chloride 0.9% (plus) 50 ML 100 MG IV (22:05)
== END 2022-07-31 22:35 | disposition home or self-care (01) ==
PROVIDERS: Emergency Medicine; Emergency Provider Registered Nurse; PCP Family Medicine
DX: N39.0 Urinary tract infection, site not specified (principal); Z79.01 Long term (current) use of anticoagulants
CPT/HCPCS: 71275; 80053; 81001; 85025; 87086; 96361; 96365; 96375; 99285; J0696; J0780; J1885; J2405; J7030; Q9967

== ENCOUNTER → 2022-08-19 10:36 | Outpatient (BNVA) | payer MEDICARE, MEDICAID, SELFPAY | PROVIDERS: PCP Family Medicine; Visit Provider Specialist | DX: G43.711 Chronic migraine without aura, intractable, with status migrainosus (principal); M54.81 Occipital neuralgia; M79.7 Fibromyalgia | CPT/HCPCS: 99214 ==

== ENCOUNTER → 2022-08-29 09:19 | Outpatient (BNVA) | payer MEDICARE, MEDICAID, SELFPAY | PROVIDERS: PCP Family Medicine; Visit Provider Emergency Medicine | DX: M25.561 Pain in right knee (principal) | CPT/HCPCS: 73562 ==

== ENCOUNTER → 2022-09-23 12:29 | Outpatient (BNVA) | payer MEDICARE, MEDICAID, SELFPAY | PROVIDERS: PCP Family Medicine; Visit Provider Emergency Medicine | DX: S69.92XA Unspecified injury of left wrist, hand and finger(s), initial encounter (principal); S67.191A Crushing injury of left index finger, initial encounter; X58.XXXA Exposure to other specified factors, initial encounter | CPT/HCPCS: 73130 ==

== ENCOUNTER → 2022-10-04 10:25 | Outpatient (BNVA) | payer MEDICARE, MEDICAID, SELFPAY | PROVIDERS: PCP Family Medicine; Visit Provider Emergency Medicine | DX: R10.9 Unspecified abdominal pain (principal) | CPT/HCPCS: 81000; 87086 ==

== ENCOUNTER → 2022-11-20 09:20 | Outpatient (BNVA) | payer MEDICARE, MEDICAID, SELFPAY | PROVIDERS: PCP Family Medicine; Visit Provider Emergency Medicine | DX: R10.9 Unspecified abdominal pain (principal); J01.90 Acute sinusitis, unspecified; B96.89 Other specified bacterial agents as the cause of diseases classified elsewhere; H61.23 Impacted cerumen, bilateral; N39.0 Urinary tract infection, site not specified; M72.2 Plantar fascial fibromatosis | CPT/HCPCS: 81000 ==

== ENCOUNTER 2023-02-14 11:50 | Emergency (ER) | payer MEDICARE, MEDICAID, SELFPAY ==
[2023-02-14] VITALS (9 sets, daily range): BP systolic 98–155; BP diastolic 53–83; PULSE 49–63; RESP 12–20; TEMP 36.7; O2SAT 96–100
--- NOTE | 2023-02-14 11:53 | ECG_ITS ---
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 Measurements Intervals [place] Rate: 56 P: 53 MT: 166 QRS: 63 QRSD: 90 T: 58 QT: 397 QTc: 383 Interpretive Statements SINUS BRADYCARDIA POSSIBLE LEFT ATRIAL ENLARGEMENT [-0.1mV P-WAVE IN V1/V2] POSSIBLE ANTERIOR MYOCARDIAL INFARCTION , PROBABLY OLD [30 ms Q WAVE IN V3/V4, OR R < 0.2 mV IN V4] Compared to ECG 11/13/2020 21:52:06 Myocardial infarct finding now present Sinus rhythm no longer present Electronically Signed On 02-14-2023 13:25:33 CDT by Baldomero Hernandez M.D. [id number]
--- NOTE | 2023-02-14 11:57 | XR_ITS ---
WS: [id number] Portable AP upright chest, 02/14/2023 Clinical Data: dyspnea/cough Comparison: Two-view chest, 11/19/2021 Findings: No nodules, masses or effusions are seen. The heart is normal. The pulmonary vascularity is not increased. No pneumonia or pneumothorax is seen. There is a dextroscoliosis of the thoracic spin e. There are monitor leads on the chest wall. XR/XR chest 1V portable [id number] Impression: Negative chest.
--- NOTE | 2023-02-14 12:06 | W.ED.CHESTPA ---
HPI - Chest Pain General: Chief Complaint: Chest Pain Stated Complaint: cp Time Seen by Provider: 02/14/23 11:56 Source: patient Mode of arrival: ambulatory History of Present Illness: 47-year-old female presents emergency room with any chest pain that she has had for the last 2 days. Radiates into her back. At times she has discomfort into the neck but she does not particularly associate it with worsening of her chest discomfort. She is also had some nausea again not necessarily directly associated with her chest discomfort. The discomfort is waxed and waned over the last few days she has not noticed anything that makes it better or worse. She has not noticed any association with exertion. 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 She did vomit twice yesterday but that also was not necessarily associated with worsening of her chest pain. She has no known cardiac history. She has not previously had any diagnostic work-up for chest pain. MD complaint: chest pain Onset (ago): minute(s) Timing of current episode: episodic Prior episodes: No Onset: during rest Pain location: substernal Pain radiation: none Relieving factors: nothing Exacerbating factors: nothing Associated symptoms: Reports nausea and vomiting; Deny abdominal pain, diaphoresis, dyspnea, fever(s), leg edema, palpitations, sense of impending doom or syncope Review of Systems Const: Denies: fever(s), chills or diaphoresis Card: Reports: chest pain; Denies: palpitations, irregular heart rhythm, edema or syncope Resp: Denies: dyspnea GI: Reports: nausea and vomiting; Denies: abdominal pain : Denies: flank pain, difficulty voiding, dysuria, urinary frequency or urinary urgency Musc: Reports: neck pain Skin/Breast: Denies: rash or pruritus PFSH ED PFSH: Medical History Anticoagulant long-term use Bipolar disorder, unspecified Chronic post-traumatic stress disorder Fibromyalgia CIRA (generalized anxiety disorder) Generalized anxiety disorder GERD (gastroesophageal reflux disease) History of pulmonary embolism History of tear of ACL (anterior cruciate ligament) Hx pulmonary embolism Migraine with aura, intractable, with status migrainosus MARIE (obstructive sleep apnea) Plantar fasciitis Pneumothorax Pseudoseizure Psychiatric care PTSD (post-traumatic stress disorder) Worst headache of life Surgical History H/O bilateral salpingectomy H/O section H/O total hysterectomy H/O tubal ligation Family History Father Hypertension Diabetes Grandfather Diabetes Grandmother Diabetes Mother Heart disease Social History Smoking and tobacco status: never smoked Alcohol intake: current Alcohol intake frequency: holidays/special occasions only Substance/Drug Use: never Current gender identity: Female Female Reproductive History: Spontaneous abortions: No Physical Exam Const: COMMON NORMALS: no acute distress GENERAL APPEARANCE: cooperative and comfortable ORIENTATION/CONSCIOUSNESS: Yes awake, Yes oriented to person, Yes oriented to place and Yes oriented to time HENMT: COMMON NORMALS: normocephalic, atraumatic and hearing grossly normal bilaterally HEAD & SCALP: normocephalic and atraumatic Chest: OTHER: Mild sternal discomfort with palpation of the upper sternum patient states he does not entirely the type of discomfort she had that brought her to the emergency room. Resp: COMMON NORMALS: normal respiratory effort, No retractions, No use of accessory muscles and clear to auscultation bilaterally AUSCULTATION: clear to auscultation bilaterally Cardio: COMMON NORMALS: regular rate, regular rhythm and No murmurs present (Cardio) RATE: regular rate RHYTHM: regular rhythm GI: COMMON NORMALS: Soft to palpation and No hepatosplenomegaly present AUSCULTATION: Yes normoactive bowel sounds PALPATION: Yes Soft to palpation, No Tenderness to palpation present (GI), No Guarding due to palpation present (GI) and Yes No hepatosplenomegaly present Extremity: COMMON NORMALS: normal to inspection, capillary refill normal, no clubbing, cyanosis or edema, no calf tenderness and no pedal edema Neuro: SENSORIUM/ORIENTATION: Yes oriented to person, Yes oriented to place and Yes oriented to time Skin: COMMON NORMALS: no rashes or lesions noted GENERAL SKIN EXAM: no rashes or lesions noted Course Vital Signs: Vital signs: Vital Signs Temperature 98.0 F 02/14/23 11:57 Pulse Rate 63 02/14/23 17:16 Respiratory Rate 16 02/14/23 17:16 Blood Pressure 98/58 02/14/23 17:16 Pulse Oximetry 98 02/14/23 17:16 MDM - Chest Pain Medical Decision Making No shortness of breath no tachycardia. Troponins negative EKG did not show any acute ST changes. Chest pain is reproducible with inspiration and with palpation. After some initial lab work was completed and went into check with the patient she is complaining more now of a headache. She is given a GI cocktail with minimal relief with pain medications and fluids for her headache she did have near complete resolution of symptoms. She is still under anticoagulated's. There is no clinical evidence of recurrent PE at this point. Her symptoms seem more musculoskeletal will have her change to pantoprazole. We will also set up for an outpatient Lexiscan sestamibi stress test return if she has further problems continue her current Eliquis. Medical Records I reviewed the patient's medical records. Lab Data I reviewed the patient's lab results. 02/14/23 12:50 02/14/23 12:50 Radiology Impressions Chest X-Ray 02/14/23 11:57 Impression: Negative chest. Laboratory Results WBC 5.6 10^3/uL (4.0-10.0) 02/14/23 12:50 RBC 4.87 10^6/uL (4.1-5.3) 02/14/23 12:50 Hgb 13.5 g/dL (11.5-15.3) 02/14/23 12:50 Hct 41.1 % (37.0-47.0) 02/14/23 12:50 MCV 84.4 fl (81-99) 02/14/23 12:50 MCH 27.7 pg (28.0-34.0) L 02/14/23 12:50 MCHC 32.8 g/dL (30.0-36.0) 02/14/23 12:50 RDW 12.8 % (12.1-15.1) 02/14/23 12:50 Plt Count 255 10^3/cmm (130-400) 02/14/23 12:50 MPV 9.0 fL (7.4-10.4) 02/14/23 12:50 Neut % (Auto) 47.9 % 02/14/23 12:50 Lymph % (Auto) 43.2 % 02/14/23 12:50 [place] % (Auto) 6.2 % 02/14/23 12:50 Eos % (Auto) 1.6 % 02/14/23 12:50 Baso % (Auto) 0.9 % 02/14/23 12:50 Neut # (Auto) 2.69 10^3/uL (1.8-7.7) 02/14/23 12:50 Lymph # (Auto) 2.4 10^3/uL (0.8-4.8) 02/14/23 12:50 [place] # (Auto) 0.4 10^3/uL (0.2-0.9) 02/14/23 12:50 Eos # (Auto) 0.1 10^3/uL (0.0-0.8) 02/14/23 12:50 Baso # (Auto) 0.1 10^3/uL (0.0-0.1) 02/14/23 12:50 Nucleated RBC % (auto) 0 % 02/14/23 12:50 Nucleated RBCs # 0.0 /100WBC 02/14/23 12:50 Sodium 140 mmol/L (136-145) 02/14/23 12:50 Potassium 3.8 mmol/L (3.5-5.1) 02/14/23 12:50 Chloride 103 mmol/L (98-107) 02/14/23 12:50 Carbon Dioxide 25 mmol/L (22-29) 02/14/23 12:50 Anion Gap 15.8 (5-19) 02/14/23 12:50 BUN 9 mg/dL (6-20) 02/14/23 12:50 Creatinine 0.7 mg/dL (0.5-0.9) 02/14/23 12:50 GFR Calculation 90.1 mL/min (90-130) 02/14/23 12:50 Glucose 86 mg/dL (65-115) 02/14/23 12:50 Calculated Osmolality 288 mOsm/kg (285-295) 02/14/23 12:50 Calcium 9.2 mg/dL (8.5-10.5) 02/14/23 12:50 Total Bilirubin 0.3 mg/dL (0.15-1.2) 02/14/23 12:50 AST 14 U/L (0-32) 02/14/23 12:50 ALT 11 U/L (0-33) 02/14/23 12:50 Alkaline Phosphatase 88 U/L (35-105) 02/14/23 12:50 Troponin T Baseline 6 ng/L (0-10) 02/14/23 12:50 Troponin T 120 Minute 6.00 ng/L (0-10) 02/14/23 14:22 Delta Troponin T 0 ABS# (0-10) 02/14/23 14:22 Total Protein 7.7 g/dL (6.6-8.7) 02/14/23 12:50 Albumin 4.7 g/dL (3.5-5.2) 02/14/23 12:50 Globulin 3.0 g/dL (1.3-4.6) 02/14/23 12:50 Urine Color Yellow (Yellow) 02/14/23 12:27 Urine Appearance Clear (CLEAR) 02/14/23 12:27 Urine pH 8 (5-7) H 02/14/23 12:27 Ur Specific [place] 1.010 (1.005-1.030) 02/14/23 12:27 Urine Protein Neg (Negative) 02/14/23 12:27 Urine Glucose (UA) Norm (Normal) 02/14/23 12:27 Urine Ketones Negative (Negative) 02/14/23 12:27 Urine Blood Neg (Negative) 02/14/23 12:27 Urine Nitrate Negative (Negative) 02/14/23 12:27 Urine Bilirubin Neg (Negative) 02/14/23 12:27 Prot Sulfosalicylic Acd Negative (Negative) 02/14/23 12:27 Urine Urobilinogen Neg mg/dL (Negative) 02/14/23 12:27 Ur Leukocyte Esterase Negative (Negative) 02/14/23 12:27 Discharge Plan Discharge Patient Disposition: Home Clinical Impression: Pleuritic chest pain, Atypical chest pain, Headache Condition: Stable Prescriptions: New pantoprazole 40 mg tablet,delayed release (DR/EC) 40 mg PO DAILY Qty: 30 0RF hydrocodone-acetaminophen 5-325 mg tablet 1 tab PO Q6H PRN (Reason: pain) Qty: 10 0RF Discontinued omeprazole 20 mg capsule,delayed release(DR/EC) 20 mg PO DAILY 90 Days Qty: 90 2RF No Action magnesium oxide 400 mg magnesium tablet 400 mg PO DAILY potassium gluconate 595 mg (99 mg) tablet 595 mg PO DAILY Eliquis 2.5 mg tablet 2.5 mg PO BID 30 Days Qty: 60 8RF alprazolam [Xanax XR] 1 mg tablet extended release 24 hr 1 mg PO DAILY Qty: 30 4RF alprazolam 0.5 mg tablet 0.5 mg PO TID PRN (Reason: anxiety) 30 Days Qty: 50 4RF Emgality Syringe 120 mg/mL syringe See Rx Instructions .ROUTE .COMPLEX Qty: 1 3RF Dose Instruction: INJECT 120 MG SUB-Q MONTHLY FOR 3RD MONTH Rx Instructions: INJECT 120 MG SUB-Q MONTHLY FOR 3RD MONTH Flonase Allergy Relief 50 mcg/actuation spray,suspension 2 spray intranasal DAILY PRN (Reason: Allergy Symptoms) Rx Instructions: administer into each nostril Discharge Orders: Discharge ED (Routine); Ordered 02/14/23 Ordered By: Iker Nelson Referrals: Minal Sanders MD [Primary Care Provider] - Discharge Diet: Usual diet Discharge Activity: Limit activity as instructed Patient Instructions: Opioid Safety, Pain Management Activity Restrictions/Additional Instructions: You were seen today for pleuritic-like chest pain. Improved with the pain medications given. Your EKG and cardiac enzymes were normal. Continue to take your Eliquis as previously prescribed recommend that you change from omeprazole to pantoprazole. We will also discharge you home with some pain medication. Case management will make arrangements for an outpatient Lexiscan sestamibi stress test. Coding Level of Care Code ED Forklift Supervisor for Elpidio Chung
[2023-02-14] MEDS: aspirin 81 mg Chew Tablet 324 MG PO (12:24)
[2023-02-14 12:45] LABS: Add Urine Microscopic? NO; Charge for UA Resulting for Rev
[2023-02-14 12:53] LABS: Bilirubin Urine Neg (Negative); Blood Urine Neg (Negative); Glucose Urine UA Norm (Normal); Ketones Urine Negative (Negative); Leukocyte Esterase Urine Negative (Negative); Nitrate Urine Negative (Negative); Protein Urine Neg (Negative); Sulfosalicylic Acid Urine Negative (Negative); Urine Appearance Clear (CLEAR); Urine Color Yellow (Yellow); Urobilinogen Urine Neg (Negative); pH Urine 8 (5-7)
[2023-02-14 13:05] LABS: Basophils # 0.1 10^3/uL (0.0-0.1); Basophils % 0.9 %; Eosinophils # 0.1 10^3/uL (0.0-0.8); Eosinophils % 1.6 %; Hematocrit 41.1 % (37.0-47.0); Hemoglobin 13.5 g/dL (11.5-15.3); Lymphocytes # 2.4 10^3/uL (0.8-4.8); Lymphocytes % 43.2 %; Mean Corpuscular HGB Conc 32.8 g/dL (30.0-36.0); Mean Corpuscular Hemoglobin 27.7 pg (28.0-34.0); Mean Corpuscular Volume 84.4 fl (81-99); Monocytes # 0.4 10^3/uL (0.2-0.9); Monocytes % 6.2 %; Neutrophils # 2.69 10^3/uL (1.8-7.7); Neutrophils % 47.9 %; Nucleated Red Blood Cells % 0 %; Platelet Count 255 10^3/cmm (130-400); Red Blood Count 4.87 10^6/uL (4.1-5.3); Red Cell Distribution Width 12.8 % (12.1-15.1); White Blood Count 5.6 10^3/uL (4.0-10.0)
[2023-02-14 13:27] LABS: Troponin(5th) Baseline 6 ng/L (0-10)
[2023-02-14 13:31] LABS: Alanine Aminotransferase 11 U/L (0-33); Albumin Level 4.7 g/dL (3.5-5.2); Alkaline Phosphatase 88 U/L (35-105); Anion Gap 15.8 (5-19); Aspartate Amino Transferase 14 U/L (0-32); Blood Urea Nitrogen 9 mg/dL (6-20); Calcium 9.2 mg/dL (8.5-10.5); Carbon Dioxide 25 mmol/L (22-29); Chloride 103 mmol/L (98-107); Glomerular Filtration Rate 90.1 mL/min (90-130); Glucose 86 mg/dL (65-115); Osmolality Calculated 288 mOsm/kg (285-295); Potassium 3.8 mmol/L (3.5-5.1); Sodium 140 mmol/L (136-145); Total Bilirubin 0.3 mg/dL (0.15-1.2); Total Protein 7.7 g/dL (6.6-8.7)
--- NOTE | 2023-02-14 14:18 | ECG_ITS ---
[facility] Test Date: 2023-02-14 Pat Name: Joanie Black Department: Room: Gender: Female Estate Planner: : 1975 Requested By: Iker Faustin Order Number: [id number] James MD: Baldomero Hernandez M.D. Measurements Intervals [place] Rate: 48 P: 52 MS: 166 QRS: 46 QRSD: 92 T: 60 QT: 436 QTc: 390 Interpretive Statements SINUS BRADYCARDIA POSSIBLE LEFT ATRIAL ENLARGEMENT [-0.1mV P-WAVE IN V1/V2] LOW QRS VOLTAGE IN PRECORDIAL LEADS [QRS DEFLECTION < 1.0 mV IN CHEST LEADS] Compared to ECG 02/14/2023 11:59:27 Low QRS voltage now present Myocardial infarct finding no longer present Electronically Signed On 02-14-2023 23:06:21 CDT by Baldomero Hernandez M.D. [email or web address] [email or web address] An[email or web address]/store/[id number]
[2023-02-14] MEDS: lidocaine 2% viscous 15 ML, aluminum-mag hydrox-simethicon 30 ML, sucralfate oral liq 1 GM PO (15:10)
[2023-02-14] MEDS: ketorolac 30 mg/mL INJ IVP (15:14)
[2023-02-14 15:26] LABS: Troponin 5 2HR Delta 0 ABS# (0-10)
[2023-02-14] MEDS: promethazine 25 mg/mL SDV 1 mL IM (16:05)
[2023-02-14] MEDS: HYDROmorphone 1 mg/mL INJ 1 mL 0.5 MG IVP (16:05)
[2023-02-14] MEDS: sodium chloride 0.9% 1,000 ML 999 ML IV (16:05)
== END 2023-02-14 17:17 | disposition home or self-care (01) ==
PROVIDERS: Emergency Provider Family Medicine; PCP Family Medicine
DX: R09.1 Pleurisy (principal); R07.89 Other chest pain; R51.9 Headache, unspecified; Z79.01 Long term (current) use of anticoagulants; Z86.711 Personal history of pulmonary embolism
CPT/HCPCS: 71045; 80053; 81003; 84484; 85025; 93005; 96361; 96372; 96374; 96376; 99285; J1170; J1885; J2550; J7030

== ENCOUNTER 2023-02-23 14:09 | Emergency (ER) | payer MEDICARE, MEDICAID, SELFPAY ==
[2023-02-23] VITALS (8 sets, daily range): BP systolic 95–107; BP diastolic 56–74; PULSE 72–85; RESP 16–21; TEMP 37.4; O2SAT 94–98
--- NOTE | 2023-02-23 14:10 | XRR_ITS ---
PROCEDURE INFORMATION: Exam: XR Chest Exam date and time: 02/23/2023 2:23 PM Age: 47 years old Clinical indication: Pain; Chest pressure; Additional info: Cp TECHNIQUE: Imaging protocol: Radiologic exam of the chest. Views: 1 view. COMPARISON: CR XR chest 1V portable [id number] 02/14/2023 12:04 PM FINDINGS: Lungs: Unremarkable. No consolidation. Pleural spaces: Unremarkable. No pleural effusion. No pneumothorax. Heart/Mediastinum: Unremarkable. No cardiomegaly. Bones/joints: Unremarkable. XR/XR chest 1V portable [id number] IMPRESSION: No acute findings.
--- NOTE | 2023-02-23 14:15 | ED_ITS ---
HPI - Chest Pain General: Chief Complaint: Chest Pain Stated Complaint: CHEST PAIN Time Seen by Provider: 02/23/23 14:09 Source: patient and EMS Mode of arrival: EMS Limitations: no limitations History of Present Illness: 47-year-old female who has a history anxiety states she started having a sharp chest pain in the center of her chest today when she is eating states it radiated to both arms started feeling very anxious she went to the clinic and they called EMS EMS states that she had a seizure in route they said it was 30 seconds she woke immediately and was at her baseline she told me she does have a history of pseudoseizures especially when she gets stressed states that her pain has improved she had dyspnea earlier with that and was having some tachypnea. Associated symptoms: Deny abdominal pain, dyspnea, fever(s), nausea or vomiting Review of Systems Const: Denies: fever(s), chills, body aches or change in appetite ENMT: Denies: throat pain or dental pain Card: Reports: chest pain Resp: Denies: dyspnea GI: Denies: abdominal pain, nausea, vomiting or diarrhea Musc: Denies: neck pain or back pain PFSH ED PFSH: Medical History Anticoagulant long-term use Bipolar disorder, unspecified Chronic post-traumatic stress disorder Fibromyalgia CIRA (generalized anxiety disorder) Generalized anxiety disorder GERD (gastroesophageal reflux disease) History of pulmonary embolism History of tear of ACL (anterior cruciate ligament) Hx pulmonary embolism Migraine with aura, intractable, with status migrainosus MARIE (obstructive sleep apnea) Plantar fasciitis Pneumothorax Pseudoseizure Psychiatric care PTSD (post-traumatic stress disorder) Worst headache of life Surgical History H/O bilateral salpingectomy H/O section H/O total hysterectomy H/O tubal ligation Family History Father Hypertension Diabetes Grandfather Diabetes Grandmother Diabetes Mother Heart disease Social History Smoking and tobacco status: never smoked Alcohol intake: current Alcohol intake frequency: holidays/special occasions only Substance/Drug Use: never Current gender identity: Female Female Reproductive History: Spontaneous abortions: No Physical Exam Const: COMMON NORMALS: no acute distress, patient oriented x3 and healthy a ppearing GENERAL APPEARANCE: anxious HENMT: COMMON NORMALS: normocephalic and atraumatic HEAD & SCALP: normocephalic and atraumatic Eye: COMMON NORMALS: conjunctivae normal CONJUNCTIVA: Yes conjunctivae normal Neck/C-Spine: COMMON NORMALS: full ROM and supple Chest: COMMONS NORMALS: normal inspection of the chest and normal palpation of entire chest wall Resp: COMMON NORMALS: normal respiratory effort, No retractions, No use of accessory muscles and clear to auscultation bilaterally AUSCULTATION: clear to auscultation bilaterally Cardio: COMMON NORMALS: regular rate, regular rhythm and No murmurs present (Cardio) RATE: regular rate RHYTHM: regular rhythm GI: COMMON NORMALS: Normal to inspection, nondistended, normoactive bowel sounds present, Soft to palpation, non-tender and no masses PALPATION: Yes Soft to palpation Extremity: COMMON NORMALS: normal to inspection and full ROM Neuro: COMMON NORMALS: patient oriented x3, moves all extremities and no focal motor deficits Psych: COMMON NORMALS: mental status grossly normal, Normal thought process present and cooperative THOUGHT PROCESS: Normal thought process present Skin: COMMON NORMALS: no rashes or lesions noted and no wounds GENERAL SKIN EXAM: no rashes or lesions noted Course Vital Signs: Vital signs: Vital Signs Temperature 99.3 F 02/23/23 14:09 Pulse Rate 72 02/23/23 15:30 Respiratory Rate 19 H 02/23/23 15:30 Blood Pressure 107/67 02/23/23 15:45 Pulse Oximetry 96 02/23/23 15:30 Oxygen Delivery Me thod Room Air 02/23/23 14:09 MDM - Chest Pain Medical Decision Making Patient presents for chest pain that is atypical in nature patient's troponins and EKG and x-ray are all normal here she has no signs of pulmonary embolism or aortic dissection she has no signs of acute coronary syndrome she feels improved here after Ativan she is stable for discharge she is to follow-up with PCP and return if worsening Medical Records I reviewed the patient's medical records. Lab Data I reviewed the patient's lab results. 02/23/23 14:19 02/23/23 14:19 Radiology Impressions Chest X-Ray 02/23/23 14:10 IMPRESSION: No acute findings. Laboratory Results WBC 4.8 10^3/uL (4.0-10.0) 02/23/23 14:19 RBC 4.43 10^6/uL (4.1-5.3) 02/23/23 14:19 Hgb 12.4 g/dL (11.5-15.3) 02/23/23 14:19 Hct 37.7 % (37.0-47.0) 02/23/23 14:19 MCV 85.1 fl (81-99) 02/23/23 14:19 MCH 28.0 pg (28.0-34.0) 02/23/23 14: MCHC 32.9 g/dL (30.0-36.0) 02/23/23 14:19 RDW 12.6 % (12.1-15.1) 02/23/23 14:19 Plt Count 253 10^3/cmm (130-400) 02/23/23 14:19 MPV 9.3 fL (7.4-10.4) 02/23/23 14:19 Neut % (Auto) 57.3 % 02/23/23 14:19 Lymph % (Auto) 32.8 % 02/23/23 14:19 [place] % (Auto) 7.6 % 02/23/23 14:19 Eos % (Auto) 1.3 % 02/23/23 14:19 Baso % (Auto) 0.8 % 02/23/23 14:19 Neut # (Auto) 2.73 10^3/uL (1.8-7.7) 02/23/23 14:19 Lymph # (Auto) 1.6 10^3/uL (0.8-4.8) 02/23/23 14:19 [place] # (Auto) 0.4 10^3/uL (0.2-0.9) 02/23/23 14:19 Eos # (Auto) 0.1 10^3/uL (0.0-0.8) 02/23/23 14:19 Baso # (Auto) 0.0 10^3/uL (0.0-0.1) 02/23/23 14:19 Nucleated RBC % (auto) 0 % 02/23/23 14:19 Nucleated RBCs # 0.0 /100WBC 02/23/23 14:19 PT 14.30 SECONDS (12.1-14.9) 02/23/23 14:19 INR 1.07 (0.8-1.2) 02/23/23 14:19 Sodium 139 mmol/L (136-145) 02/23/23 14:19 Potassium 3.6 mmol/L (3.5-5.1) 02/23/23 14:19 Chloride 101 mmol/L (98-107) 02/23/23 14:19 Carbon Dioxide 23 mmol/L (22-29) 02/23/23 14:19 Anion Gap 18.6 (5-19) 02/23/23 14:19 BUN 10 mg/dL (6-20) 02/23/23 14:19 Creatinine 0.7 mg/dL (0.5-0.9) 02/23/23 14:19 GFR Calculation 90.1 mL/min (90-130) 02/23/23 14:19 Glucose 62 mg/dL (65-115) L 02/23/23 14:19 Calculated Osmolality 285 mOsm/kg (285-295) 02/23/23 14:19 Calcium 9.0 mg/dL (8.5-10.5) 02/23/23 14:19 Total Bilirubin 0.2 mg/dL (0.15-1.2) 02/23/23 14:19 AST 13 U/L (0-32) 02/23/23 14:19 ALT 10 U/L (0-33) 02/23/23 14:19 Alkaline Phosphatase 86 U/L (35-105) 02/23/23 14:19 Troponin T Baseline 6 ng/L (0-10) 02/23/23 14:19 Troponin T 120 Minute 6.00 ng/L (0-10) 02/23/23 16:11 Total Protein 6.9 g/dL (6.6-8.7) 02/23/23 14:19 Albumin 4.1 g/dL (3.5-5.2) 02/23/23 14:19 Globulin 2.8 g/dL (1.3-4.6) 02/23/23 14:19 EKG Data EKG 1: I personally reviewed and interpreted this EKG as follows: EKG interpretation date: 02/23/23 EKG interpretation time: 16:14 Interpretation: nsr hr [address] or t wave abnormalities qrs 86 qtc 393 Discharge Plan Discharge Patient Disposition: Home Clinical Impression: Chest pain Condition: Stable Prescriptions: No Action potassium gluconate 595 mg (99 mg) tablet 595 mg PO BEDTIME Eliquis 2.5 mg tablet 2.5 mg PO BID 30 Days Qty: 60 8RF alprazolam 0.5 mg tablet 0.5 mg PO TID PRN (Reason: anxiety) 30 Days Qty: 50 4RF Emgality Syringe 120 mg/mL syringe See Rx Instructions .ROUTE .COMPLEX Qty: 1 3RF Dose Instruction: INJECT 120 MG SUB-Q MONTHLY FOR 3RD MONTH Rx Instructions: INJECT 120 MG SUB-Q MONTHLY FOR 3RD MONTH fluticasone propionate [Flonase Allergy Relief] 50 mcg/actuation spray,suspension 2 spray intranasal DAILY PRN (Reason: Allergy Symptoms) Rx Instructions: administer into each nostril pantoprazole 40 mg tablet,delayed release (DR/EC) 40 mg PO DAILY Qty: 30 0RF hydrocodone-acetaminophen 5-325 mg tablet 1 tab PO Q6H PRN (Reason: pain) Qty: 10 0RF albuterol sulfate 90 mcg/actuation HFA aerosol inhaler 2 puff INHALATION Q6H PRN (Reason: Shortness Of Breath) Himanshu Mag Zinc Plus D3 333 mg-133 unit -133 mg-5 mg Tablet 1 tab PO BEDTIME alprazolam [Xanax XR] 1 mg tablet extended release 24 hr 1 mg PO DAILY PRN (Reason: Anxiety) Discharge Orders: Discharge ED (Routine); Ordered 02/23/23 Ordered By: Shoaib Contreras Referrals: Minal Sanders MD [Primary Care Provider] - 1-3 days Discharge Diet: Advance as tolerated Discharge Activity: Resume usual activity Patient Instructions: Chest Pain (ED) Coding Level of Care Code ED Audiovisual Equipment Operator for Elpidio Chung
[2023-02-23] MEDS: LORazepam 2 mg/mL INJ 1 mL 1 MG IVP (14:23)
[2023-02-23 14:26] LABS: Basophils % 0.8 %; Eosinophils # 0.1 10^3/uL (0.0-0.8); Eosinophils % 1.3 %; Hematocrit 37.7 % (37.0-47.0); Hemoglobin 12.4 g/dL (11.5-15.3); Lymphocytes # 1.6 10^3/uL (0.8-4.8); Lymphocytes % 32.8 %; Mean Corpuscular HGB Conc 32.9 g/dL (30.0-36.0); Mean Corpuscular Volume 85.1 fl (81-99); Mean Platelet Volume 9.3 fL (7.4-10.4); Monocytes # 0.4 10^3/uL (0.2-0.9); Monocytes % 7.6 %; Neutrophils # 2.73 10^3/uL (1.8-7.7); Neutrophils % 57.3 %; Nucleated Red Blood Cells % 0 %; Platelet Count 253 10^3/cmm (130-400); Red Blood Count 4.43 10^6/uL (4.1-5.3); Red Cell Distribution Width 12.6 % (12.1-15.1); White Blood Count 4.8 10^3/uL (4.0-10.0)
[2023-02-23 14:41] LABS: INR 1.07 (0.8-1.2)
--- NOTE | 2023-02-23 14:44 | PC.PHAR ---
pt states she is no longer taking prilosec 20mg daily rx filled 01/29/23 30d/s-pt states she hasnt started taking pantoprazole 40mg daily filled 02/19/23 30d/s or the norco 5/325mg q6h prn written on 02/14/23 pt states she has the bottles at home just not started taking them yet
--- NOTE | 2023-02-23 14:51 | ECG_ITS ---
[facility] Test Date: 2023-02-23 Pat Name: Joanie Black Department: Room: Gender: Female Orthotics Prosthetics Assistant: : 1975 Requested By: Shoaib Contreras Order Number: [id number] James MD: Yvon Velazquez M.D. Measurements Intervals [place] Rate: 72 P: 62 [place]: 162 QRS: 38 QRSD: 92 T: 54 QT: 397 QTc: 437 Interpretive Statements SINUS RHYTHM POSSIBLE LEFT ATRIAL ENLARGEMENT [-0.1mV P-WAVE IN V1/V2] LOW QRS VOLTAGE IN PRECORDIAL LEADS [QRS DEFLECTION < 1.0 mV IN CHEST LEADS] Compared to ECG 02/14/2023 14:18:48 Sinus bradycardia no longer present Electronically Signed On 02-23-2023 21:10:01 CDT by Yvon Velazquez M.D. [id number]
[2023-02-23 15:00] LABS: Alanine Aminotransferase 10 U/L (0-33); Albumin Level 4.1 g/dL (3.5-5.2); Alkaline Phosphatase 86 U/L (35-105); Aspartate Amino Transferase 13 U/L (0-32); Blood Urea Nitrogen 10 mg/dL (6-20); Carbon Dioxide 23 mmol/L (22-29); Chloride 101 mmol/L (98-107); Globulin 2.8 g/dL (1.3-4.6); Glomerular Filtration Rate 90.1 mL/min (90-130); Glucose 62 mg/dL (65-115); Osmolality Calculated 285 mOsm/kg (285-295); Sodium 139 mmol/L (136-145); Total Bilirubin 0.2 mg/dL (0.15-1.2); Total Protein 6.9 g/dL (6.6-8.7)
[2023-02-23 15:01] LABS: Troponin(5th) Baseline 6 ng/L (0-10)
[2023-02-23 15:12] LABS: Anion Gap 18.6 (5-19); Potassium 3.6 mmol/L (3.5-5.1)
--- NOTE | 2023-02-23 16:10 | ECG_ITS ---
[facility] Test Date: 2023-02-23 Pat Name: Joanie Black Department: Room: Gender: Female Home Coordinator: : 1975 Requested By: Shoaib Contreras Order Number: [id number] James MD: Yvon Velazquez M.D. Measurements Intervals [place] Rate: 60 P: 47 [place]: 158 QRS: 17 QRSD: 86 T: 46 QT: 392 QTc: 394 Interpretive Statements SINUS RHYTHM POSSIBLE LEFT ATRIAL ENLARGEMENT [-0.1mV P-WAVE IN V1/V2] LOW QRS VOLTAGE IN PRECORDIAL LEADS [QRS DEFLECTION < 1.0 mV IN CHEST LEADS] MODERATE ST DEPRESSION [0.05+ mV ST DEPRESSION] Compared to ECG 02/23/2023 14:51:18 ST (T wave) deviation now present Electronically Signed On 02-25-2023 0:22:49 CDT by Yvon Velazquez M.D. [id number]
[2023-02-23 17:46] LABS: Troponin 5 2HR Delta 0 ABS# (0-10)
== END 2023-02-23 17:11 | disposition home or self-care (01) ==
PROVIDERS: Emergency Provider Emergency Medicine; PCP Family Medicine
DX: R07.9 Chest pain, unspecified (principal); Z79.01 Long term (current) use of anticoagulants; Z86.711 Personal history of pulmonary embolism
CPT/HCPCS: 36415; 71045; 80053; 84484; 85025; 85610; 93005; 96374; 99285; J2060

== ENCOUNTER → 2023-03-12 08:52 | Outpatient (BNVA) | payer MEDICARE, MEDICAID, SELFPAY | PROVIDERS: PCP Family Medicine; Visit Provider Family Medicine | DX: R53.83 Other fatigue (principal); N95.1 Menopausal and female climacteric states; E78.00 Pure hypercholesterolemia, unspecified; Z86.16 Personal history of COVID-19; Z13.1 Encounter for screening for diabetes mellitus | CPT/HCPCS: 80053; 80061; 83001; 83002; 84443; 86769 ==

== ENCOUNTER → 2023-08-21 11:53 | Outpatient (BNVA) | payer MEDICARE, MEDICAID, SELFPAY | PROVIDERS: PCP Family Medicine; Visit Provider Emergency Medicine | DX: R39.9 Unspecified symptoms and signs involving the genitourinary system (principal) | CPT/HCPCS: 81000; 87086 ==

== ENCOUNTER → 2024-01-14 13:47 | Outpatient (BNVA) | payer MEDICARE, MEDICAID, SELFPAY | PROVIDERS: PCP Family Medicine; Visit Provider Specialist | DX: G43.711 Chronic migraine without aura, intractable, with status migrainosus (principal); M79.641 Pain in right hand; M79.642 Pain in left hand; M79.7 Fibromyalgia; M50.90 Cervical disc disorder, unspecified, unspecified cervical region; F44.5 Conversion disorder with seizures or convulsions; M54.81 Occipital neuralgia; F51.01 Primary insomnia; R29.90 Unspecified symptoms and signs involving the nervous system; Z86.711 Personal history of pulmonary embolism; Z79.01 Long term (current) use of anticoagulants | CPT/HCPCS: 99214 ==

== ENCOUNTER → 2024-02-05 16:24 | Outpatient (BNVA) | payer MEDICARE, MEDICAID, SELFPAY | PROVIDERS: PCP Family Medicine; Visit Provider Emergency Medicine | DX: J02.9 Acute pharyngitis, unspecified (principal); G43.711 Chronic migraine without aura, intractable, with status migrainosus; R11.2 Nausea with vomiting, unspecified | CPT/HCPCS: 87071; 87880 ==

== ENCOUNTER → 2024-02-16 11:36 | Outpatient (BNVA) | payer MEDICARE, MEDICAID, SELFPAY | PROVIDERS: PCP Family Medicine; Visit Provider Emergency Medicine | DX: J02.9 Acute pharyngitis, unspecified (principal) | CPT/HCPCS: 87071; 87880 ==